=== PATIENT | female | born 1990 | race Caucasian/White ===

== ENCOUNTER 2018-04-30 14:14 | Emergency (ER) | payer OTHER, SELFPAY ==
[2018-04-30 14:18] VITALS: BP 144/95; PULSE 90; RESP 18; TEMP 36.6; O2SAT 100
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
[2018-04-30] MEDS: IBUPROFEN 400 MG TABLET 800 MG PO (14:51)
[2018-04-30] MEDS: TET,DIPH,PERTUSS(ACELL),VAC/PF 0.5 ML SYRINGE IM (14:53)
[2018-04-30 15:43] VITALS: BP 111/68; PULSE 65; RESP 12; O2SAT 100
== END 2018-04-30 15:54 | disposition home or self-care (01) ==
PROVIDERS: Emergency Provider Internal Medicine; PCP Family Medicine
DX: T24.202A Burn of second degree of unspecified site of left lower limb, except ankle and foot, initial encounter (principal); T24.101A Burn of first degree of unspecified site of right lower limb, except ankle and foot, initial encounter; X11.1XXA Contact with running hot water, initial encounter; Y99.0 Civilian activity done for income or pay
CPT/HCPCS: 90471; 99282; 99283; 90715

== ENCOUNTER → 2018-11-09 09:49 | Outpatient (CLI) | payer OTHER, MEDICAID, SELFPAY ==
--- NOTE | 2018-11-09 09:51 | DI.RAD.S_ITS ---
PROCEDURE: XR CERVICAL SPINE 2V OR 3V INDICATIONS: Cervical radiculopathy TECHNIQUE: 3 view(s) of the cervical spine were acquired. COMPARISON: None. FINDINGS: Bones: No fractures or dislocations to the C7 level. The lateral masses of C1 appear intact on the odontoid view. No suspicious bony lesions. Disc space is grossly preserved. Mild diffuse facet arthropathy Soft tissues: No prevertebral soft tissue swelling. IMPRESSION: Mild diffuse facet arthropathy Dictated by: Orlando Iqbal M.D. on 11/09/2018 at 12:47 Approved by: Orlando Iqbal M.D. on 11/09/2018 at 12:48
== END ==
PROVIDERS: PCP Registered Nurse; Visit Provider Registered Nurse
DX: M47.22 Other spondylosis with radiculopathy, cervical region (principal)
CPT/HCPCS: 72040

== ENCOUNTER → 2019-02-01 19:38 | Outpatient (CLI) | payer OTHER, MEDICAID, SELFPAY ==
[2019-02-01 20:25] LABS: Influenza A and B by PCR Rapid Negative (Negative)
== END ==
PROVIDERS: PCP Registered Nurse; Visit Provider Physician Assistant
DX: R68.89 Other general symptoms and signs (principal)
CPT/HCPCS: 87400

== ENCOUNTER → 2019-02-02 09:38 | Outpatient (CLI) | payer OTHER, MEDICAID, SELFPAY ==
[2019-02-02 10:02] LABS: Appearance Urine UA CLEAR; Bilirubin Urine UA NEGATIVE (NEGATIVE); Color Urine UA YELLOW; Glucose Urine UA NEGATIVE (Negative); Ketones Urine UA NEGATIVE (NEGATIVE); Leukocyte Esterase Urine UA NEGATIVE (NEGATIVE); Nitrite Urine UA NEGATIVE (Negative); Occult Blood Urine UA NEGATIVE (Negative); Protein Urine UA NEGATIVE (Negative); pH Urine UA 6.5 (4.5-8.0)
[2019-02-02 10:03] LABS: Add Manual Diff / Slide Review NO; Basophils Absolute Auto 0 /uL (0-100); Basophils Percent Auto 0.4 % (0-2); Eosinophils Absolute Auto 0 /uL (0-450); Eosinophils Percent Auto 0.2 % (2-4); Hematocrit 37.4 % (36-46); Hemoglobin 13.2 g/dL (12.0-16.0); Lymphocytes Absolute Auto 2000 /uL (1100-4500); Lymphocytes Percent Auto 21.3 % (25-40); Mean Corpuscular HGB Conc 35.2 % (30-36); Mean Corpuscular Hemoglobin 31.4 PG (26-34); Mean Corpuscular Volume 89.2 fL (80-100); Monocytes Absolute Auto 800 /uL (0-900); Monocytes Percent Auto 8.6 % (3-14); Neutrophils Absolute Auto 6500 /uL (1500-7000); Neutrophils Percent Auto 69.5 % (50-75); Platelet Count 265 X10^3/uL (150-400); Red Cell Distribution Width 11.9 % (11.6-14.8); White Blood Cell Count 9.3 X10^3/uL (4.5-11.0)
[2019-02-02 10:06] LABS: Pregnancy Test Urine Negative (Negative)
[2019-02-02 10:10] LABS: Monotest Negative (Negative)
[2019-02-02 10:11] LABS: Alanine Aminotransferase 17 IU/L (9-52); Albumin 4.6 g/dL (3.5-5.0); Albumin Globulin Ratio 1.4 (1.0-2.8); Alkaline Phosphatase 59 U/L (38-126); Aspartate Aminotransferase 21 IU/L (14-36); BUN Creatinine Ratio 14.3 (6-22); Bilirubin Total 0.5 mg/dL (0.2-1.3); Blood Urea Nitrogen 10 mg/dL (7-17); Calcium 9.4 mg/dL (8.4-10.2); Carbon Dioxide 26 mmol/L (22-32); Chloride 102 mmol/L (98-107); Estimated Glomerular Filt Rate > 60.0 mL/min (>60); Globulin 3.3 g/dL (1.7-4.1); Glucose 118 mg/dL (70-100); HEMOLYSIS < 15 (0-50); Potassium 3.9 mmol/L (3.4-5.1); Sodium 140 mmol/L (137-145); Total Protein 7.9 g/dL (6.3-8.2)
[2019-02-02 10:15] LABS: Bacteria Urine Few (2-10); Culture Indicated Urine Cult Not Indicated; Mucus Urine 1+ (Negative); RBC Urine 0-1/HPF (0-5/HPF); Squamous Epithelial Cell Urine 0-1 /HPF (0-5/HPF); WBC Urine 0-1/HPF (0-5/HPF)
== END ==
PROVIDERS: PCP Registered Nurse; Visit Provider Physician Assistant
DX: R68.89 Other general symptoms and signs (principal)
CPT/HCPCS: 36415; 80053; 81001; 81025; 85025; 86318

== ENCOUNTER → 2019-02-23 15:08 | Outpatient (CLI) | payer OTHER, MEDICAID, SELFPAY ==
[2019-02-23 16:18] LABS: Add Manual Diff / Slide Review NO; Basophils Absolute Auto 0 /uL (0-100); Basophils Percent Auto 0.3 % (0-2); Eosinophils Absolute Auto 0 /uL (0-450); Eosinophils Percent Auto 0.3 % (2-4); Hematocrit 34.5 % (36-46); Hemoglobin 11.9 g/dL (12.0-16.0); Lymphocytes Absolute Auto 3300 /uL (1100-4500); Lymphocytes Percent Auto 24.8 % (25-40); Mean Corpuscular HGB Conc 34.5 % (30-36); Mean Corpuscular Hemoglobin 30.7 PG (26-34); Mean Corpuscular Volume 89.1 fL (80-100); Monocytes Absolute Auto 700 /uL (0-900); Neutrophils Absolute Auto 9200 /uL (1500-7000); Neutrophils Percent Auto 69.6 % (50-75); Platelet Count 313 X10^3/uL (150-400); Red Blood Cell Count 3.87 X10^6/uL (4.0-5.2); Red Cell Distribution Width 12.6 % (11.6-14.8); White Blood Cell Count 13.2 X10^3/uL (4.5-11.0)
[2019-02-23 17:18] LABS: BUN Creatinine Ratio 15.7 (6-22); Blood Urea Nitrogen 11 mg/dL (7-17); Calcium 9.4 mg/dL (8.4-10.2); Carbon Dioxide 27 mmol/L (22-32); Chloride 97 mmol/L (98-107); Estimated Glomerular Filt Rate > 60.0 mL/min (>60); Glucose 80 mg/dL (70-100); HEMOLYSIS < 15 (0-50); Potassium 3.8 mmol/L (3.4-5.1); Sodium 134 mmol/L (137-145)
[2019-02-23 18:54] LABS: Bacteria Urine None Seen; RBC Urine None Seen (0-5/HPF); WBC Urine None Seen (0-5/HPF)
[2019-02-23 19:13] LABS: Bilirubin Urine UA NEGATIVE (NEGATIVE); Color Urine UA YELLOW; Glucose Urine UA NEGATIVE (Negative); Ketones Urine UA NEGATIVE (NEGATIVE); Leukocyte Esterase Urine UA NEGATIVE (NEGATIVE); Nitrite Urine UA NEGATIVE (Negative); Occult Blood Urine UA 2+ (Negative); Protein Urine UA NEGATIVE (Negative); Specific Gravity Urine UA <=1.005 (1.000-1.035); Urobilinogen Urine UA 0.2 E.U./dL (0.2)
[2019-02-23 19:17] LABS: Appearance Urine UA Slightly Cloudy
[2019-02-23 19:21] LABS: Squamous Epithelial Cell Urine 0-1 /HPF (0-5/HPF)
[2019-02-23 19:22] LABS: Culture Indicated Urine Cult Not Indicated
== END ==
PROVIDERS: PCP Registered Nurse; Visit Provider Registered Nurse
DX: R10.30 Lower abdominal pain, unspecified (principal); R31.9 Hematuria, unspecified; N92.3 Ovulation bleeding
CPT/HCPCS: 36415; 80048; 81001; 85025

== ENCOUNTER → 2019-02-23 16:10 | Outpatient (CLI) | payer OTHER, MEDICAID, SELFPAY ==
--- NOTE | 2019-02-23 | DI.CT.S_ITS ---
PROCEDURE: CT ABDOMEN PELVIS W CON INDICATIONS: LEFT LOWER QUADRANT PAIN, DIVERTICULITIS TECHNIQUE: After the administration of oral and intravenous contrast, 5 mm thick sections acquired from the diaphragms to the symphysis. 5 mm thick coronal and sagittal reformats were performed. For radiation dose reduction, the following was used: automated exposure control, adjustment of mA and/or kV according to patient size. COMPARISON: None. FINDINGS: Image quality: Excellent. ABDOMEN: Lung bases: There is a subpleural nodule within the left posterolateral lung base measuring 5 mm. Heart size is normal. Solid organs: Liver is normal in size and enhancement. Gallbladder is within normal limits. Biliary system is non-dilated. Pancreas enhances normally. Spleen is normal in size and enhancement. No adrenal nodules. Kidneys are normal in size and enhancement, without hydronephrosis. Peritoneum and bowel: Stomach, small bowel, and colon loops are normal in caliber and wall thickness. No free fluid or air. Normal appendix. Nodes and vessels: No retroperitoneal or mesenteric adenopathy. Aorta and inferior vena cava are normal in caliber. Miscellaneous: No ventral hernias. PELVIS: Genitourinary: Bladder wall thickness is normal. Miscellaneous: No inguinal hernias or adenopathy. Bones: No suspicious bony lesions. No vertebral body compression fractures. IMPRESSION: 1. No explanation for left lower quadrant pain. No evidence of diverticulitis. 2. Normal appendix. 3. Left lung base nodule. Followup is recommended as below. Fleischner Society criteria for SOLID lung nodule followup. Nodule size (mm)Low-risk patientHigh-risk patient?4No follow-up neededFollow-up at 12 mo; if no change, no further follow-up>3-2Sbfpeo-dw CT at 12 mo; if no change, no further follow-up needed.Initial follow-up CT at 6-12 mo, then 18-24 mo if no change. >6-8Initial follow-up CT at 6-12 mo, then 18-24 mo if no change. Initial follow-up CT at 3-6 mo, then 9-12 mo and 24 mo if no change. >8Follow-up CT at 3, 9, 24 mo. Or PET and/or biopsy.Same as for low-risk pts. Dictated by: Marisa Rae M.D. on 02/23/2019 at 19:11 Approved by: Marisa Rae M.D. on 02/23/2019 at 19:13
== END ==
PROVIDERS: PCP Registered Nurse; Visit Provider Registered Nurse
DX: R10.32 Left lower quadrant pain (principal); K57.92 Diverticulitis of intestine, part unspecified, without perforation or abscess without bleeding; R31.9 Hematuria, unspecified; N92.3 Ovulation bleeding
CPT/HCPCS: 36415; 74177; 80048; 81001; 85025; Q9967

== ENCOUNTER → 2019-02-23 16:26 | Outpatient (CLI) | payer OTHER, MEDICAID, SELFPAY | PROVIDERS: PCP Registered Nurse; Visit Provider Registered Nurse | DX: R10.32 Left lower quadrant pain (principal) ==

== ENCOUNTER → 2019-03-15 09:32 | Outpatient (CLI) | payer OTHER, MEDICAID, SELFPAY ==
[2019-03-15 10:46] LABS: Add Manual Diff / Slide Review NO; Basophils Absolute Auto 0 /uL (0-100); Basophils Percent Auto 0.4 % (0-2); Eosinophils Absolute Auto 100 /uL (0-450); Hematocrit 36.1 % (36-46); Hemoglobin 12.4 g/dL (12.0-16.0); Lymphocytes Absolute Auto 2100 /uL (1100-4500); Lymphocytes Percent Auto 32.2 % (25-40); Mean Corpuscular HGB Conc 34.2 % (30-36); Mean Corpuscular Hemoglobin 30.7 PG (26-34); Mean Corpuscular Volume 89.6 fL (80-100); Monocytes Absolute Auto 500 /uL (0-900); Monocytes Percent Auto 7.7 % (3-14); Neutrophils Absolute Auto 3700 /uL (1500-7000); Neutrophils Percent Auto 57.7 % (50-75); Platelet Count 304 X10^3/uL (150-400); Red Blood Cell Count 4.03 X10^6/uL (4.0-5.2); Red Cell Distribution Width 12.5 % (11.6-14.8); White Blood Cell Count 6.4 X10^3/uL (4.5-11.0)
== END ==
PROVIDERS: PCP Registered Nurse; Visit Provider Registered Nurse
DX: N12 Tubulo-interstitial nephritis, not specified as acute or chronic (principal)
CPT/HCPCS: 36415; 85025

== ENCOUNTER 2019-09-05 03:06 | Emergency (ER) | payer OTHER, MEDICAID, SELFPAY ==
[2019-09-05 03:13] VITALS: BP 120/76; PULSE 102; RESP 16; TEMP 36.4; O2SAT 96; BMI 24.9
--- NOTE | 2019-09-05 03:17 | DI.RAD.S_ITS ---
PROCEDURE: XR ANKLE LT MIN 3V INDICATIONS: Fall with injury possible fracture TECHNIQUE: 3 views of the ankle were acquired. COMPARISON: None. FINDINGS: Bones: No fractures or dislocations. Ankle mortise is normally aligned. No suspicious bony lesions. Soft tissues: No tibiotalar joint effusion. Achilles tendon appears normal. IMPRESSION: No acute radiographic findings. If pain persists, followup imaging in 5-7 days is recommended to exclude occult fracture. Dictated by: Alejandra Forbes M.D. on 09/05/2019 at 7:12 Approved by: Alejandra Forbes M.D. on 09/05/2019 at 7:13
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
[2019-09-05 04:44] VITALS: BP 107/70
== END 2019-09-05 04:45 | disposition home or self-care (01) ==
PROVIDERS: Emergency Provider Emergency Medicine; PCP Registered Nurse
DX: S93.402A Sprain of unspecified ligament of left ankle, initial encounter (principal); X50.1XXA Overexertion from prolonged static or awkward postures, initial encounter
CPT/HCPCS: 73610; 99283; 99284

== ENCOUNTER → 2019-09-16 15:08 | Outpatient (CLI) | payer OTHER, MEDICAID, SELFPAY ==
[2019-09-16 15:28] LABS: Bacteria Urine None Seen; RBC Urine None Seen (0-5/HPF)
[2019-09-16 16:24] LABS: Appearance Urine UA CLEAR; Bilirubin Urine UA NEGATIVE (NEGATIVE); Color Urine UA YELLOW; Glucose Urine UA NEGATIVE (Negative); Ketones Urine UA NEGATIVE (NEGATIVE); Leukocyte Esterase Urine UA 1+ (NEGATIVE); Nitrite Urine UA NEGATIVE (Negative); Occult Blood Urine UA NEGATIVE (Negative); Protein Urine UA NEGATIVE (Negative); Specific Gravity Urine UA <=1.005 (1.000-1.035); Urobilinogen Urine UA 0.2 E.U./dL (0.2)
[2019-09-16 16:50] LABS: Culture Indicated Urine Specimen Cultured; WBC Urine 1-5/HPF (0-5/HPF)
[2019-09-16 17:05] LABS: Pregnancy Test Urine Negative (Negative)
== END ==
PROVIDERS: PCP Registered Nurse; Visit Provider Nurse Practitioner
DX: R30.0 Dysuria (principal); Z34.90 Encounter for supervision of normal pregnancy, unspecified, unspecified trimester
CPT/HCPCS: 81001; 81025; 87086

== ENCOUNTER 2019-11-18 11:15 | Outpatient (RCR) | payer OTHER, MEDICAID, SELFPAY ==
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
--- NOTE | 2019-10-21 09:45 | PT.OPPOC ---
Physical, Occupational & Speech Therapy At [facility] Current Diagnoses Pain in left ankle and joints of left foot (10/21/19) Muscle weakness (generalized) (10/21/19) Unspecified injury of left ankle, initial encounter (10/21/19) Visit Care Team Role Provider Type LISSA Santiago Primary Care Provider Advanced Sound Tester Specialty: Medical Address: [address] [place] [address], [facility] Email: [email or web address] LISSA Sandra Attending Provider Advanced Sound Tester Referring Provider Specialty: Family Practice Address: [address] [place] [address], [id number] Email: [email or web address] Plan Of Care PT-OP-T Assessment and Plan Start: 10/21/19 17:48 Freq: Status: Active Protocol: Document 10/21/19 09:45 DLM (Rec: 10/25/19 20:28 DLM [id number]) Physical Therapy Assessment Rehab Potential Rehabilitation Potential Excellent Evaluation Complexity Number of Personal Factors/Comorbidities 1-2 Number of Body Systems Impaired 3 Clinical Presentation at Evaluation Evolving Impairments Impairments Balance,Functional Activities, Gait,Pain,ROM,Soft Tissue Mobility,Strength Goals Four Impairment Functional limitations left ankle Short Term Goal (STG) demonstrate good single limb stability on left STG Duration 2 weeks Nurse Informatics Educator Goal (LTG) demonstrate normal gait and ability to participate in normal Yoga routine LTG Duration 4 weeks Three Impairment Decreased Strength Short Term Goal (STG) Left ankle strength 4+/5 STG Duration 2 weeks Nurse Informatics Educator Goal (LTG) Left LE strength 5/5 LTG Duration 4 weeks Two Impairment Limited left ankle ROM Short Term Goal (STG) Left ankle dorsiflexion AROM to neutral STG Duration 2 weeks Penitentiary Goal (LTG) left ankle DF to 3 degrees dorsiflexed LTG Duration 4 weeks One Impairment Pain left ankle Short Term Goal (STG) resolve pain with active ankle motions STG Duration 2 weeks Nurse Informatics Educator Goal (LTG) resolve pain with normal functional use left ankle LTG Duration 4 weeks Assessment Summary Assessment Christal presents to therapy after left ankle injury. Clinical exam is positive for strain/sprain. Her ankle has improved with rest and normal walking but has not returned to full strength and ROM. She has mild edema around lateral malleolus at this time. She could benefit from physical therapy to address the deficits identified on evaluation. Physical Therapy Plan Frequency and Duration Frequency of Treatment 1x/Week Duration of Treatment 4 weeks Plan of Care Start Date 10/21/19 Plan of Care End Date 12/14/19 Therapeutic Interventions Therapeutic Interventions Balance Training,Gait Training ,Home Exercise Program,Manual Therapy,Patient/Caregiver Education,Self-Care/Home Management,Soft Tissue Mobilization,Taping, Therapeutic Activities, Therapeutic Exercises Modalities Cold Pack/Ice Massage, Ultrasound Next Visit Focus/Plan Next Note Type Treatment Note Next Visit Plan Left LE strengthening and closed chain stabalization, calf stretch to increase DF ROM Plan of Care Dates Plan of Care Start Date 10/21/19 Plan of Care End Date 12/14/19 Electronically Signed by: Nayla Barton, PT 10/25/192037 Please Sign and Return: I have reviewed this Plan of Care and certify that the skilled therapy services above are required to meet the patient?s needs. Physician Signature Date Printed Name and Credentials
--- NOTE | 2019-10-28 09:45 | PT.OTN ---
Current Diagnoses Pain in left ankle and joints of left foot (10/28/19) Muscle weakness (generalized) (10/28/19) Unspecified injury of left ankle, initial encounter (10/28/19) Physical Therapy Treatment Note PT-OP-A Visit Information Start: 10/21/19 17:48 Freq: Status: Active Protocol: Document 10/28/19 09:00 KS (Rec: 10/28/19 10:11 KS [email or web address]) Out-Patient Physical Therapy Visit Information Visit Information Visit Type Treatment Note Visit Start Time 09:00 Visit Stop Time 09:45 Total Visit Minutes 45 Visit Number 2 Number of WARRANTY COORDINATOR Visits 1 PT-OP-B Current Condition Start: 10/21/19 17:48 Freq: Status: Active Protocol: Document 10/21/19 09:45 DLM (Rec: 10/25/19 20:28 DLM [id number]) Current Condition History of Current Condition Onset Date 09/05/19 Current Complaints Left ankle pain History of Current Condition She injured her ankle on 09/05 while at work. She has immediate severe pain in her ankle and could not walk on it . She was seen in ED where she was negative for fracture. Her ankle has gradually gotten better. She continues to have pain with certain movements especially quick turns and trying to kneel on ground. She feels her ankle is 75% better . Prior Treatments and Tests rest of ankle, x-rays Treatment Goals Patient/Caregiver Goals resolve the pain in her ankle with normal use Prior Functional Status Baseline Function- ADL's Independent Baseline Function- Mobility Independent Baseline Function- Gait Independent Baseline Function- Work/School Working Baseline Function- Recreation/Hobbies Yoga, Walking Current Functional Impairments (Reported) Functional Limitations- ADL's Independent Functional Limitations- Mobility/Gait she feels she can walk normal on even surfaces, quick turns and kneeling down are painful Functional Limitations- Work/School she is no longer working, she decided to take care of her Mother who was diagnosed with cancer and starting chemo treatments Functional Limitations- Recreation/ pain trying to do Yoga Hobbies Personal Factors Other Personal Factors That May Effect hx of back injury, caring for Therapy/Recovery her Mother who is starting Chemo treatments in the infusion center PT-OP-C Subjective Start: 10/21/19 17:48 Freq: Status: Active Protocol: Document 10/28/19 09:00 KS (Rec: 10/28/19 10:11 KS [id number]) OP-PT Subjective Patient Comments Patient Comments Pt reports slight pain in ankle following completion of HEP and walking downhill especially. Patient Reported Progress Improving PT-OP-D Balance Start: 10/21/19 17:48 Freq: Status: Active Protocol: Document 10/21/19 09:45 DLM (Rec: 10/25/19 20:30 DLM [id number]) Balance Tests Single Limb Standing Single Limb- Right WNL Single Limb- Left increased sway Tandem Tandem Standing increased sway with left LE in the back position Other Other Balance Tests Performed Decreased balance with standing heel walking. Functional weakness seen with standing heel raises. PT-OP-G Mobility & Gait Start: 10/21/19 17:48 Freq: Status: Active Protocol: Document 10/21/19 09:45 DLM (Rec: 10/25/19 20:28 DLM [id number]) OP Mobility Evaluation Bed Mobility Supine to and from Sit Independent Transfers Sit to Stand Independent OP Gait Assessment Gait Gait Assistance Required: Independent Assistive Devices Assistive Device None Comments Gait Comments mild changes in her gait, decreased push off noted on left and mild decreased stance time PT-OP-J Posture/Palpation/Skin Start: 10/21/19 17:48 Freq: Status: Active Protocol: Document 10/21/19 09:45 DLM (Rec: 10/25/19 20:28 DLM [id number]) Posture Evaluation Position Standing Knee Posture (L) Genu Varus,(R) Genu Varus Ankle/Foot Posture (L) Pronated,(R) Pronated Palpation Assessment Location One Palpation Location left lateral ankle Palpation Findings Edema,Tenderness Palpation Details mild scar tissue noted Skin Assessment Edema Assessment Left Ankle Edema Type Pitting Edema Degree 1+ Comments mild pocketing around lateral malleolus Circumference Measurement Ankle Location Left Measurement (Centimeters) 24 Comments Right 23.3 cm PT-OP-K Range of Motion Start: 10/21/19 17:48 Freq: Status: Active Protocol: Document 10/21/19 09:45 DLM (Rec: 10/25/19 20:28 DLM [id number]) Ankle and Foot Goniometric Range of Motion Ankle and Foot Right Active Ankle/Foot ROM WFL Yes Testing Position Supine Dorsiflexion with Knee Extended 3 Plantarflexion 75 Inversion 40 Eversion 19 Left Active Testing Position Supine Plantarflexion 65 Inversion 21 Eversion 22 Ankle and Foot ROM Limitations ROM Limitations Pain Comments left dorsiflexion is lacking 15 degrees to neutral ( plantarflexed 15 degrees), pain with left ankle PF,IV and EV PT-OP-M Strength Start: 10/21/19 17:48 Freq: Status: Active Protocol: Document 10/21/19 09:45 DLM (Rec: 10/25/19 20:28 DLM [id number]) Hip Strength Hip Manual Muscle Testing Left Flexion (L2) 4- Good- Extension (S1) 4+ Good+ Abduction 4+ Good+ Adduction 5 Normal Right Flexion (L2) 5 Normal Extension (S1) 5 Normal Abduction 5 Normal Adduction 5 Normal Knee Strength Knee Manual Muscle Testing Right Flexion (S2) 5 Normal Extension (L3) 5 Normal Left Flexion (S2) 5 Normal Extension (L3) 4+ Good+ Ankle/Foot Strength Ankle and Foot Manual Muscle Testing Left Dorsiflexion (L4) 4+ Good+ Plantarflexion (S1) 4 Good Inversion 4- Good- Eversion (S1) 4 Good Right Dorsiflexion (L4) 5 Normal Plantarflexion (S1) 5 Normal Inversion 5 Normal Eversion (S1) 5 Normal PT-OP-Q Treatments Start: 10/21/19 17:48 Freq: Status: Active Protocol: Document 10/28/19 09:00 KS (Rec: 10/28/19 10:11 KS [email or web address]) Cardio Equipment Treadmill Duration (Minutes) 5 Speed 2.4 Therapeutic Exercises Prone Exercises PF stretch Prone Exercise Name hands and knees, rock back to stretch ankle into PF Side left Resistance passive stretch Reps/Minutes 3 reps Comments cuing to keep ankle in neutral Sitting Exercises BAPS board Sitting Exercise Name BAPS board Side left Reps/Minutes 4 min Comments clockwise, counter clockwise, LRFB Alphabet with Ankle Side left Resistance active Reps/Minutes 1 set Comments Increase in pain towards end of set 4 Way Ankle EX Sitting Exercise Name ankle DF/PF/IV/EV Side left Resistance L1 exercise band Reps/Minutes 10 reps each Standing Exercises Calf stretch Standing Exercise Name calf stretch Side bilateral Equipment Used Nasir Reps/Minutes 2x30 sec SLS Standing Exercise Name SLS, tandem Side bilateral Equipment Used foam Reps/Minutes 3x30 sec Comments // bars, cues to shift weight through center of foot Calf raises Standing Exercise Name Calf raise Side bilateral Reps/Minutes 3x10 Comments last set w/ lowering on L ankle only Manual Therapy Treatment Other Other Manual Treatments Passive stretches L ankle PT-OP-T Assessment and Plan Start: 10/21/19 17:48 Freq: Status: Active Protocol: Document 10/28/19 09:00 KS (Rec: 10/28/19 10:11 KS [email or web address]) Physical Therapy Assessment Rehab Potential Rehabilitation Potential Excellent Evaluation Complexity Number of Personal Factors/Comorbidities 1-2 Number of Body Systems Impaired 3 Clinical Presentation at Evaluation Evolving Impairments Impairments Balance,Functional Activities, Gait,Pain,ROM,Soft Tissue Mobility,Strength Goals Four Impairment Functional limitations left ankle Short Term Goal (STG) demonstrate good single limb stability on left STG Duration 2 weeks Custodial Goal (LTG) demonstrate normal gait and ability to participate in normal Yoga routine LTG Duration 4 weeks Three Impairment Decreased Strength Short Term Goal (STG) Left ankle strength 4+/5 STG Duration 2 weeks Custodial Goal (LTG) Left LE strength 5/5 LTG Duration 4 weeks Two Impairment Limited left ankle ROM Short Term Goal (STG) Left ankle dorsiflexion AROM to neutral STG Duration 2 weeks Custodial Goal (LTG) left ankle DF to 3 degrees dorsiflexed LTG Duration 4 weeks One Impairment Pain left ankle Short Term Goal (STG) resolve pain with active ankle motions STG Duration 2 weeks Cover Assembler Goal (LTG) resolve pain with normal functional use left ankle LTG Duration 4 weeks Assessment Summary Assessment Pt reports progress made and overall increased function and decreased pain. Pt states that she has increase in pain after performing HEP and walking downhill. While walking on treadmill, pt has ER and limited DF and decreased stance on L LE, but denied any increase in pain. Pt tolerated ankle strengthening and ROM exercises, but does note discomfort secondary to SLS on foam pad for strengthening of ankle stabilizers. Performed passive stetching on L ankle, pt reported tenderness below lateral malleolus w/ inversion and along achilles tendon w/ dorsiflexion.
--- NOTE | 2019-11-04 09:45 | PT.OTN ---
Current Diagnoses Pain in left ankle and joints of left foot (11/04/19) Muscle weakness (generalized) (11/04/19) Unspecified injury of left ankle, initial encounter (11/04/19) Physical Therapy Treatment Note PT-OP-A Visit Information Start: 10/21/19 17:48 Freq: Status: Active Protocol: Document 11/04/19 08:55 KS (Rec: 11/04/19 12:34 KS [id number]) Out-Patient Physical Therapy Visit Information Visit Information Visit Type Treatment Note Visit Start Time 08:55 Visit Stop Time 09:45 Total Visit Minutes 50 Visit Number 3 Number of SUPERVISING PRODUCER Visits 2 PT-OP-B Current Condition Start: 10/21/19 17:48 Freq: Status: Active Protocol: Document 10/21/19 09:45 DLM (Rec: 10/25/19 20:28 DLM [id number]) Current Condition History of Current Condition Onset Date 09/05/19 Current Complaints Left ankle pain History of Current Condition She injured her ankle on 09/05 while at work. She has immediate severe pain in her ankle and could not walk on it . She was seen in ED where she was negative for fracture. Her ankle has gradually gotten better. She continues to have pain with certain movements especially quick turns and trying to kneel on ground. She feels her ankle is 75% better . Prior Treatments and Tests rest of ankle, x-rays Treatment Goals Patient/Caregiver Goals resolve the pain in her ankle with normal use Prior Functional Status Baseline Function- ADL's Independent Baseline Function- Mobility Independent Baseline Function- Gait Independent Baseline Function- Work/School Working Baseline Function- Recreation/Hobbies Yoga, Walking Current Functional Impairments (Reported) Functional Limitations- ADL's Independent Functional Limitations- Mobility/Gait she feels she can walk normal on even surfaces, quick turns and kneeling down are painful Functional Limitations- Work/School she is no longer working, she decided to take care of her Mother who was diagnosed with cancer and starting chemo treatments Functional Limitations- Recreation/ pain trying to do Yoga Hobbies Personal Factors Other Personal Factors That May Effect hx of back injury, caring for Therapy/Recovery her Mother who is starting Chemo treatments in the infusion center PT-OP-C Subjective Start: 10/21/19 17:48 Freq: Status: Active Protocol: Document 11/04/19 08:55 KS (Rec: 11/04/19 12:34 KS [id number]) OP-PT Subjective Patient Comments Patient Comments Pt reports that she had slight discomfort after last treatment, but feels like she is gaining strength and mobility overall. Pt offers that she also was able to go on a hike last weekend. Suggested pt wear shoes w/ ankle and arch support rather than slip ons. Patient Reported Progress Improving PT-OP-D Balance Start: 10/21/19 17:48 Freq: Status: Active Protocol: Document 10/21/19 09:45 DLM (Rec: 10/25/19 20:30 DLM [id number]) Balance Tests Single Limb Standing Single Limb- Right WNL Single Limb- Left increased sway Tandem Tandem Standing increased sway with left LE in the back position Other Other Balance Tests Performed Decreased balance with standing heel walking. Functional weakness seen with standing heel raises. PT-OP-G Mobility & Gait Start: 10/21/19 17:48 Freq: Status: Active Protocol: Document 10/21/19 09:45 DLM (Rec: 10/25/19 20:28 DLM [id number]) OP Mobility Evaluation Bed Mobility Supine to and from Sit Independent Transfers Sit to Stand Independent OP Gait Assessment Gait Gait Assistance Required: Independent Assistive Devices Assistive Device None Comments Gait Comments mild changes in her gait, decreased push off noted on left and mild decreased stance time PT-OP-J Posture/Palpation/Skin Start: 10/21/19 17:48 Freq: Status: Active Protocol: Document 10/21/19 09:45 DLM (Rec: 10/25/19 20:28 DLM [id number]) Posture Evaluation Position Standing Knee Posture (L) Genu Varus,(R) Genu Varus Ankle/Foot Posture (L) Pronated,(R) Pronated Palpation Assessment Location One Palpation Location left lateral ankle Palpation Findings Edema,Tenderness Palpation Details mild scar tissue noted Skin Assessment Edema Assessment Left Ankle Edema Type Pitting Edema Degree 1+ Comments mild pocketing around lateral malleolus Circumference Measurement Ankle Location Left Measurement (Centimeters) 24 Comments Right 23.3 cm PT-OP-K Range of Motion Start: 10/21/19 17:48 Freq: Status: Active Protocol: Document 10/21/19 09:45 DLM (Rec: 10/25/19 20:28 DLM [id number]) Ankle and Foot Goniometric Range of Motion Ankle and Foot Right Active Ankle/Foot ROM WFL Yes Testing Position Supine Dorsiflexion with Knee Extended 3 Plantarflexion 75 Inversion 40 Eversion 19 Left Active Testing Position Supine Plantarflexion 65 Inversion 21 Eversion 22 Ankle and Foot ROM Limitations ROM Limitations Pain Comments left dorsiflexion is lacking 15 degrees to neutral ( plantarflexed 15 degrees), pain with left ankle PF,IV and EV PT-OP-M Strength Start: 10/21/19 17:48 Freq: Status: Active Protocol: Document 10/21/19 09:45 DLM (Rec: 10/25/19 20:28 DLM [id number]) Hip Strength Hip Manual Muscle Testing Left Flexion (L2) 4- Good- Extension (S1) 4+ Good+ Abduction 4+ Good+ Adduction 5 Normal Right Flexion (L2) 5 Normal Extension (S1) 5 Normal Abduction 5 Normal Adduction 5 Normal Knee Strength Knee Manual Muscle Testing Right Flexion (S2) 5 Normal Extension (L3) 5 Normal Left Flexion (S2) 5 Normal Extension (L3) 4+ Good+ Ankle/Foot Strength Ankle and Foot Manual Muscle Testing Left Dorsiflexion (L4) 4+ Good+ Plantarflexion (S1) 4 Good Inversion 4- Good- Eversion (S1) 4 Good Right Dorsiflexion (L4) 5 Normal Plantarflexion (S1) 5 Normal Inversion 5 Normal Eversion (S1) 5 Normal PT-OP-Q Treatments Start: 10/21/19 17:48 Freq: Status: Active Protocol: Document 11/04/19 08:55 KS (Rec: 11/04/19 12:34 KS [id number]) Cardio Equipment Treadmill Duration (Minutes) 6 Speed 2.0 Therapeutic Exercises Prone Exercises PF stretch Prone Exercise Name hands and knees, rock back to stretch ankle into PF Side left Resistance passive stretch Reps/Minutes 3 reps Comments cuing to keep ankle in neutral Sitting Exercises BAPS board Sitting Exercise Name BAPS board Side left Reps/Minutes 4 min Comments clockwise, counter clockwise, LRFB Alphabet with Ankle Side left Resistance active Reps/Minutes [address] Ankle EX Sitting Exercise Name ankle DF/PF/IV/EV Side left Resistance L1 exercise band Reps/Minutes 10 reps each Standing Exercises Calf stretch Standing Exercise Name calf stretch Side bilateral Equipment Used Nasir Reps/Minutes 2x30 sec SLS Standing Exercise Name SLS Side bilateral Reps/Minutes 3x30 sec Comments cues to shift weight through center of foot Calf raises Standing Exercise Name Calf raise Side bilateral Reps/Minutes 3x10 Comments increased pn during last set Manual Therapy Treatment Soft Tissue Mobilization L ankle Body Location L ankle Mobilization Type Rolling,Strumming Intensity/Depth Superficial Body Position Supine Comments Pt has increased tenderness L anterior lateral malleolus PT-OP-T Assessment and Plan Start: 10/21/19 17:48 Freq: Status: Active Protocol: Document 11/04/19 08:55 KS (Rec: 11/04/19 12:34 KS [id number]) Physical Therapy Assessment Rehab Potential Rehabilitation Potential Excellent Evaluation Complexity Number of Personal Factors/Comorbidities 1-2 Number of Body Systems Impaired 3 Clinical Presentation at Evaluation Evolving Impairments Impairments Balance,Functional Activities, Gait,Pain,ROM,Soft Tissue Mobility,Strength Goals Four Impairment Functional limitations left ankle Short Term Goal (STG) demonstrate good single limb stability on left STG Duration 2 weeks Senior Living Goal (LTG) demonstrate normal gait and ability to participate in normal Yoga routine LTG Duration 4 weeks Three Impairment Decreased Strength Short Term Goal (STG) Left ankle strength 4+/5 STG Duration 2 weeks Fuel Quality Tech Goal (LTG) Left LE strength 5/5 LTG Duration 4 weeks Two Impairment Limited left ankle ROM Short Term Goal (STG) Left ankle dorsiflexion AROM to neutral STG Duration 2 weeks Senior Living Goal (LTG) left ankle DF to 3 degrees dorsiflexed LTG Duration 4 weeks One Impairment Pain left ankle Short Term Goal (STG) resolve pain with active ankle motions STG Duration 2 weeks Senior Living Goal (LTG) resolve pain with normal functional use left ankle LTG Duration 4 weeks Assessment Summary Assessment Pt reported slight soreness after last treatment, but also states that she went hiking on Friday and Friday which was somewhat aggravating. Encouraged pt to wear shoes w/ ankle and arch support when walking longer distances or hiking rather than slip on shoes that she reports wearing . Pt able to tolerate exercises today, but verbalized increase in discomfort w/ PF and inversion . Pt reports minimal compliance w/ HEP. Pt had tenderness anterior of L lateral malleolus during STM. Pt will benefit from continued ankle strengthening and stretching to increase stabilization and ROM. Physical Therapy Plan Frequency and Duration Frequency of Treatment 1x/Week Duration of Treatment 4 weeks Plan of Care Start Date 10/21/19 Plan of Care End Date 12/14/19 Therapeutic Interventions Therapeutic Interventions Balance Training,Gait Training ,Home Exercise Program,Manual Therapy,Patient/Caregiver Education,Self-Care/Home Management,Soft Tissue Mobilization,Taping, Therapeutic Activities, Therapeutic Exercises Modalities Cold Pack/Ice Massage, Ultrasound Next Visit Focus/Plan Next Note Type Treatment Note Next Visit Plan Left LE strengthening and closed chain stabalization, calf stretch to increase DF ROM, balance/ankle stability
--- NOTE | 2019-11-11 13:45 | PT.OTN ---
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 She has immediate severe pain in her ankle and could not walk on it . She was seen in ED where she was negative for fracture. Her ankle has gradually gotten better. She continues to have pain with certain movements especially quick turns and trying to kneel on ground. She feels her ankle is 75% better . Prior Treatments and Tests rest of ankle, x-rays Treatment Goals Patient/Caregiver Goals resolve the pain in her ankle with normal use Prior Functional Status Baseline Function- ADL's Independent Baseline Function- Mobility Independent Baseline Function- Gait Independent Baseline Function- Work/School Working Baseline Function- Recreation/Hobbies Yoga, Walking Current Functional Impairments (Reported) Functional Limitations- ADL's Independent Functional Limitations- Mobility/Gait she feels she can walk normal on even surfaces, quick turns and kneeling down are painful Functional Limitations- Work/School she is no longer working, she decided to take care of her Mother who was diagnosed with cancer and starting chemo treatments Functional Limitations- Recreation/ pain trying to do Yoga Hobbies Personal Factors Other Personal Factors That May Effect hx of back injury, caring for Therapy/Recovery her Mother who is starting Chemo treatments in the infusion center PT-OP-C Subjective Start: 10/21/19 17:48 Freq: Status: Active Protocol: Document 11/11/19 13:01 KS (Rec: 11/11/19 13:46 KS [id number]) OP-PT Subjective Patient Comments Patient Comments Pt states that she is feeling better today, expereinced mild soreness after last treatment that subsided within a coupls of hours. Notes that she is having less pain walking downhill as compared to before . Patient Reported Progress Improving PT-OP-D Balance Start: 10/21/19 17:48 Freq: Status: Active Protocol: Document 10/21/19 09:45 DLM (Rec: 10/25/19 20:30 DLM [id number]) Balance Tests Single Limb Standing Single Limb- Right WNL Single Limb- Left increased sway Tandem Tandem Standing increased sway with left LE in the back position Other Other Balance Tests Performed Decreased balance with standing heel walking. Functional weakness seen with standing heel raises. PT-OP-G Mobility & Gait Start: 10/21/19 17:48 Freq: Status: Active Protocol: Document 10/21/19 09:45 DLM (Rec: 10/25/19 20:28 DLM [id number]) OP Mobility Evaluation Bed Mobility Supine to and from Sit Independent Transfers Sit to Stand Independent OP Gait Assessment Gait Gait Assistance Required: Independent Assistive Devices Assistive Device None Comments Gait Comments mild changes in her gait, decreased push off noted on left and mild decreased stance time PT-OP-J Posture/Palpation/Skin Start: 10/21/19 17:48 Freq: Status: Active Protocol: Document 10/21/19 09:45 DLM (Rec: 10/25/19 20:28 DLM [id number]) Posture Evaluation Position Standing Knee Posture (L) Genu Varus,(R) Genu Varus Ankle/Foot Posture (L) Pronated,(R) Pronated Palpation Assessment Location One Palpation Location left lateral ankle Palpation Findings Edema,Tenderness Palpation Details mild scar tissue noted Skin Assessment Edema Assessment Left Ankle Edema Type Pitting Edema Degree 1+ Comments mild pocketing around lateral malleolus Circumference Measurement Ankle Location Left Measurement (Centimeters) 24 Comments Right 23.3 cm PT-OP-K Range of Motion Start: 10/21/19 17:48 Freq: Status: Active Protocol: Document 10/21/19 09:45 DLM (Rec: 10/25/19 20:28 DLM [id number]) Ankle and Foot Goniometric Range of Motion Ankle and Foot Right Active Ankle/Foot ROM WFL Yes Testing Position Supine Dorsiflexion with Knee Extended 3 Plantarflexion 75 Inversion 40 Eversion 19 Left Active Testing Position Supine Plantarflexion 65 Inversion 21 Eversion 22 Ankle and Foot ROM Limitations ROM Limitations Pain Comments left dorsiflexion is lacking 15 degrees to neutral ( plantarflexed 15 degrees), pain with left ankle PF,IV and EV PT-OP-M Strength Start: 10/21/19 17:48 Freq: Status: Active Protocol: Document 10/21/19 09:45 DLM (Rec: 10/25/19 20:28 DLM [id number]) Hip Strength Hip Manual Muscle Testing Left Flexion (L2) 4- Good- Extension (S1) 4+ Good+ Abduction 4+ Good+ Adduction 5 Normal Right Flexion (L2) 5 Normal Extension (S1) 5 Normal Abduction 5 Normal Adduction 5 Normal Knee Strength Knee Manual Muscle Testing Right Flexion (S2) 5 Normal Extension (L3) 5 Normal Left Flexion (S2) 5 Normal Extension (L3) 4+ Good+ Ankle/Foot Strength Ankle and Foot Manual Muscle Testing Left Dorsiflexion (L4) 4+ Good+ Plantarflexion (S1) 4 Good Inversion 4- Good- Eversion (S1) 4 Good Right Dorsiflexion (L4) 5 Normal Plantarflexion (S1) 5 Normal Inversion 5 Normal Eversion (S1) 5 Normal PT-OP-Q Treatments Start: 10/21/19 17:48 Freq: Status: Active Protocol: Document 11/11/19 13:01 KS (Rec: 11/11/19 13:46 KS [id number]) Cardio Equipment Treadmill Duration (Minutes) 7 Speed 2.8 Incline 1.0 Therapeutic Exercises Prone Exercises PF stretch Prone Exercise Name hands and knees, rock back to stretch ankle into PF Side left Resistance passive stretch Reps/Minutes 3 reps Comments cuing to keep ankle in neutral Sitting Exercises BAPS board Sitting Exercise Name BAPS board Side left Reps/Minutes 4 min Comments clockwise, counter clockwise, LRFB Alphabet with Ankle Side left Resistance active Reps/Minutes 2x [address] Way Ankle EX Sitting Exercise Name ankle DF/PF/IV/EV Side left Resistance L1 exercise band Reps/Minutes 10 reps each Standing Exercises Squats Standing Exercise Name Squats Reps/Minutes 2x10 Calf stretch Standing Exercise Name calf stretch Side bilateral Equipment Used Nasir Reps/Minutes 2x30 sec SLS Standing Exercise Name SLS Side bilateral Equipment Used foam Reps/Minutes 3x30 sec Comments cues to shift weight through center of foot Calf raises Standing Exercise Name Calf raise Side bilateral Reps/Minutes 3x10 Comments increased pn during last set Manual Therapy Treatment Soft Tissue Mobilization L ankle Body Location L ankle Mobilization Type Rolling,Strumming Intensity/Depth Superficial Body Position Supine Comments Pt has increased tenderness L anterior lateral malleolus and slight edema PT-OP-T Assessment and Plan Start: 10/21/19 17:48 Freq: Status: Active Protocol: Document 11/11/19 13:01 KS (Rec: 11/11/19 13:46 KS [id number]) Physical Therapy Assessment Rehab Potential Rehabilitation Potential Excellent Evaluation Complexity Number of Personal Factors/Comorbidities 1-2 Number of Body Systems Impaired 3 Clinical Presentation at Evaluation Evolving Impairments Impairments Balance,Functional Activities, Gait,Pain,ROM,Soft Tissue Mobility,Strength Goals Four Impairment Functional limitations left ankle Short Term Goal (STG) demonstrate good single limb stability on left STG Duration 2 weeks Specialty Finishing Utility Person Goal (LTG) demonstrate normal gait and ability to participate in normal Yoga routine LTG Duration 4 weeks Three Impairment Decreased Strength Short Term Goal (STG) Left ankle strength 4+/5 STG Duration 2 weeks Nursing Home Goal (LTG) Left LE strength 5/5 LTG Duration 4 weeks Two Impairment Limited left ankle ROM Short Term Goal (STG) Left ankle dorsiflexion AROM to neutral STG Duration 2 weeks Specialty Finishing Utility Person Goal (LTG) left ankle DF to 3 degrees dorsiflexed LTG Duration 4 weeks One Impairment Pain left ankle Short Term Goal (STG) resolve pain with active ankle motions STG Duration 2 weeks Specialty Finishing Utility Person Goal (LTG) resolve pain with normal functional use left ankle LTG Duration 4 weeks Progress Towards Goals Progress Towards Goals Progressing Toward Goals Assessment Summary Assessment Pt was able to tolerate increased ankle strengthening, stabilization, and ROM exercises today w/o increase in pain. Pt is showing progress w/ tolerance to activity, but does report mild tenderness during STM of L ankle. Slight edema identified in L lateral malleolus.
--- NOTE | 2019-11-18 16:02 | PT.OTN ---
Current Diagnoses Pain in left ankle and joints of left foot (11/18/19) Muscle weakness (generalized) (11/18/19) Unspecified injury of left ankle, initial encounter (11/18/19) Physical Therapy Treatment Note PT-OP-A Visit Information Start: 10/21/19 17:48 Freq: Status: Active Protocol: Document 11/18/19 11:17 EG (Rec: 11/18/19 13:00 EG [id number]) Out-Patient Physical Therapy Visit Information Visit Information Visit Type Treatment Note Visit Note Patient reported this is her last appointment Visit Start Time 11:17 Visit Stop Time 12:00 Total Visit Minutes 43 Visit Number [address] RE[address]TER Visits 0 PT-OP-B Current Condition Start: 10/21/19 17:48 Freq: Status: Active Protocol: Document 10/21/19 09:45 DLM (Rec: 10/25/19 20:28 DLM [id number]) Current Condition History of Current Condition Onset Date 09/05/19 Current Complaints Left ankle pain History of Current Condition She injured her ankle on 09/05 while at work. She has immediate severe pain in her ankle and could not walk on it . She was seen in ED where she was negative for fracture. Her ankle has gradually gotten better. She continues to have pain with certain movements especially quick turns and trying to kneel on ground. She feels her ankle is 75% better . Prior Treatments and Tests rest of ankle, x-rays Treatment Goals Patient/Caregiver Goals resolve the pain in her ankle with normal use Prior Functional Status Baseline Function- ADL's Independent Baseline Function- Mobility Independent Baseline Function- Gait Independent Baseline Function- Work/School Working Baseline Function- Recreation/Hobbies Yoga, Walking Current Functional Impairments (Reported) Functional Limitations- ADL's Independent Functional Limitations- Mobility/Gait she feels she can walk normal on even surfaces, quick turns and kneeling down are painful Functional Limitations- Work/School she is no longer working, she decided to take care of her Mother who was diagnosed with cancer and starting chemo treatments Functional Limitations- Recreation/ pain trying to do Yoga Hobbies Personal Factors Other Personal Factors That May Effect hx of back injury, caring for Therapy/Recovery her Mother who is starting Chemo treatments in the [facility] PT-OP-C Subjective Start: 10/21/19 17:48 Freq: Status: Active Protocol: Document 11/18/19 11:17 EG (Rec: 11/18/19 13:00 EG [id number]) OP-PT Subjective Patient Comments Patient Comments Patient reports that she hasn' t had any pain this week. When doing stretches and turning foot, she can still feel pain a little bit. She is not working now so she is not on her feet like she has been. She reports still been icing it a few times a week. She still sees some swelling but it doesn't bother her. She is currently helping take care of her mom who is currently having chemotherapy so she hasn't had much time for herself lately. Patient Reported Progress Improving PT-OP-D Balance Start: 10/21/19 17:48 Freq: Status: Active Protocol: Document 10/21/19 09:45 DLM (Rec: 10/25/19 20:30 DLM [id number]) Balance Tests Single Limb Standing Single Limb- Right WNL Single Limb- Left increased sway Tandem Tandem Standing increased sway with left LE in the back position Other Other Balance Tests Performed Decreased balance with standing heel walking. Functional weakness seen with standing heel raises. PT-OP-G Mobility & Gait Start: 10/21/19 17:48 Freq: Status: Active Protocol: Document 10/21/19 09:45 DLM (Rec: 10/25/19 20:28 DLM [id number]) OP Mobility Evaluation Bed Mobility Supine to and from Sit Independent Transfers Sit to Stand Independent OP Gait Assessment Gait Gait Assistance Required: Independent Assistive Devices Assistive Device None Comments Gait Comments mild changes in her gait, decreased push off noted on left and mild decreased stance time PT-OP-J Posture/Palpation/Skin Start: 10/21/19 17:48 Freq: Status: Active Protocol: Document 10/21/19 09:45 DLM (Rec: 10/25/19 20:28 DLM [id number]) Posture Evaluation Position Standing Knee Posture (L) Genu Varus,(R) Genu Varus Ankle/Foot Posture (L) Pronated,(R) Pronated Palpation Assessment Location One Palpation Location left lateral ankle Palpation Findings Edema,Tenderness Palpation Details mild scar tissue noted Skin Assessment Edema Assessment Left Ankle Edema Type Pitting Edema Degree 1+ Comments mild pocketing around lateral malleolus Circumference Measurement Ankle Location Left Measurement (Centimeters) 24 Comments Right 23.3 cm PT-OP-K Range of Motion Start: 10/21/19 17:48 Freq: Status: Active Protocol: Document 10/21/19 09:45 DLM (Rec: 10/25/19 20:28 DLM [id number]) Ankle and Foot Goniometric Range of Motion Ankle and Foot Right Active Ankle/Foot ROM WFL Yes Testing Position Supine Dorsiflexion with Knee Extended 3 Plantarflexion 75 Inversion 40 Eversion 19 Left Active Testing Position Supine Plantarflexion 65 Inversion 21 Eversion 22 Ankle and Foot ROM Limitations ROM Limitations Pain Comments left dorsiflexion is lacking 15 degrees to neutral ( plantarflexed 15 degrees), pain with left ankle PF,IV and EV PT-OP-M Strength Start: 10/21/19 17:48 Freq: Status: Active Protocol: Document 10/21/19 09:45 DLM (Rec: 10/25/19 20:28 DLM [id number]) Hip Strength Hip Manual Muscle Testing Left Flexion (L2) 4- Good- Extension (S1) 4+ Good+ Abduction 4+ Good+ Adduction 5 Normal Right Flexion (L2) 5 Normal Extension (S1) 5 Normal Abduction 5 Normal Adduction 5 Normal Knee Strength Knee Manual Muscle Testing Right Flexion (S2) 5 Normal Extension (L3) 5 Normal Left Flexion (S2) 5 Normal Extension (L3) 4+ Good+ Ankle/Foot Strength Ankle and Foot Manual Muscle Testing Left Dorsiflexion (L4) 4+ Good+ Plantarflexion (S1) 4 Good Inversion 4- Good- Eversion (S1) 4 Good Right Dorsiflexion (L4) 5 Normal Plantarflexion (S1) 5 Normal Inversion 5 Normal Eversion (S1) 5 Normal PT-OP-Q Treatments Start: 10/21/19 17:48 Freq: Status: Active Protocol: Document 11/18/19 11:17 EG (Rec: 11/18/19 13:00 EG [id number]) Cardio Equipment Treadmill Duration (Minutes) 6 Speed 2.8-3.0 Incline 1.0 Other felt slight pain in ankle after 6 min Therapeutic Exercises Sitting Exercises Alphabet with Ankle Sitting Exercise Name spelling alphabet Side left Resistance active Reps/Minutes 1x 4 Way Ankle EX Sitting Exercise Name ankle DF/PF/IV/EV Side left Resistance L1 exercise band Reps/Minutes 10 reps each Comments given L2 exercise band for HEP - taught how to do Standing Exercises Yoga poses Standing Exercise Name warrior 1, mountain pose, child's pose, warrior 2 Reps/Minutes 1 min each pose Comments given instructions on how to modify poses with ankle Calf stretch Standing Exercise Name calf stretch Side bilateral Equipment Used Nasir Reps/Minutes 1 min Comments given standing modification for HEP SLS Standing Exercise Name SLS Side bilateral Equipment Used foam Reps/Minutes 1 min each side Comments given for HEP Calf raises Standing Exercise Name Calf raise Side bilateral Reps/Minutes 10x 2 legs/ 5x 1 leg Comments given as HEP Manual Therapy Treatment Joint Mobilizations Talocrural Joint Joint Talocrural Joint Direction AP Grade II Body Position Supine Reps/Duration 90 sec Manual Techniques ROM measurements/DF stretch Type ROM measurements both feet and MMT; DF/calf stretch PROM Body Location L ankle Body Position Supine Comments leg resting on bolster PT-OP-T Assessment and Plan Start: 10/21/19 17:48 Freq: Status: Active Protocol: Document 11/18/19 11:17 EG (Rec: 11/18/19 13:00 EG [id number]) Physical Therapy Assessment Goals Four Impairment Functional limitations left ankle Short Term Goal (STG) demonstrate good single limb stability on left STG Duration MET Custodial Goal (LTG) demonstrate normal gait and ability to participate in normal Yoga routine 11/18/2019: After walking for 6 minutes, feel a little pain in the ankle. Not able to start yoga routine. LTG Duration 4 weeks Three Impairment Decreased Strength Short Term Goal (STG) Left ankle strength 4+/5 11/18/2019: p! with eversion and dorsiflexion. 4/5 all planes STG Duration 2 weeks Otr Owner Operator Truck Driver Goal (LTG) Left LE strength 5/5 11/18/2019: p! with eversion and dorsiflexion. 4/5 all planes LTG Duration 4 weeks Two Impairment Limited left ankle ROM Short Term Goal (STG) Left ankle dorsiflexion AROM to neutral 11/18/2019: 2 deg to neutral with both feet STG Duration 2 weeks Custodial Goal (LTG) left ankle DF to 3 degrees dorsiflexed 11/18/2019: 2 deg to neutral with both feet LTG Duration 4 weeks One Impairment Pain left ankle Short Term Goal (STG) resolve pain with active ankle motions 11/18/2019: No more pain with activity. STG Duration 2 weeks Custodial Goal (LTG) resolve pain with normal functional use left ankle 11/18/2019: 10/25 p! at worse 10% of the day. LTG Duration 4 weeks Assessment Summary Assessment Patient is slightly overwhelmed being the primary caregiver of her mother and would like to do more things on her own before coming back in. She feels she has improved overall but she still gets pain with increased activity. Patient should continue with her HEP and come in for another PT treatment because skilled therapies are warranted to increase her stability in L ankle as well as progress her balance and strength. She has a 10 year old child and is quite young, so it is important to give patient tools to increase her L ankle function. Patient was educated on possible risk of increased ankle sprains due to the lengthen ligament and importance of good supportive shoes when performing activities. Physical Therapy Plan Frequency and Duration Frequency of Treatment 1x/Week Duration of Treatment 4 weeks Plan of Care Start Date 10/21/19 Plan of Care End Date 12/14/19 Next Visit Focus/Plan Next Note Type Treatment Note Next Visit Plan Assess HEP tolerance and progress as needed. See how patient is feeling about her ankle progress and if she has any questions. Progress balance and stabilization exercises. Possible discharge in next couple appointments based on patient's perference with busy schedule. Denisha Monte DPT, supervised all treatment performed by, and agreed with the plan of care, as performed by Bella Jewell, JOSH.
--- NOTE | 2020-03-30 11:30 | PT.OPDS ---
Current Diagnoses Pain in left ankle and joints of left foot (11/18/19) Muscle weakness (generalized) (11/18/19) Unspecified injury of left ankle, initial encounter (11/18/19) Visit Care Team Role Provider Type LISSA Santiago Primary Care Provider [employer] Train Driver Specialty: Medical Address: [address] [place] [address], [facility] Email: [email or web address] LISSA Sandra Attending Provider [employer] Driver Referring Provider Specialty: Family Practice Address: [address] [place] [address], [id number] Email: [email or web address] Visit Number Visit Number 5 Discharge Summary PT-OP-B Current Condition Start: 10/21/19 17:48 Freq: Status: Active Protocol: Document 10/21/19 09:45 DLM (Rec: 10/25/19 20:28 DLM [id number]) Current Condition History of Current Condition Onset Date 09/05/19 Current Complaints Left ankle pain History of Current Condition She injured her ankle on 09/05 while at work. She has immediate severe pain in her ankle and could not walk on it . She was seen in ED where she was negative for fracture. Her ankle has gradually gotten better. She continues to have pain with certain movements especially quick turns and trying to kneel on ground. She feels her ankle is 75% better . Prior Treatments and Tests rest of ankle, x-rays Treatment Goals Patient/Caregiver Goals resolve the pain in her ankle with normal use Prior Functional Status Baseline Function- ADL's Independent Baseline Function- Mobility Independent Baseline Function- Gait Independent Baseline Function- Work/School Working Baseline Function- Recreation/Hobbies Yoga, Walking Current Functional Impairments (Reported) Functional Limitations- ADL's Independent Functional Limitations- Mobility/Gait she feels she can walk normal on even surfaces, quick turns and kneeling down are painful Functional Limitations- Work/School she is no longer working, she decided to take care of her Mother who was diagnosed with cancer and starting chemo treatments Functional Limitations- Recreation/ pain trying to do Yoga Hobbies Personal Factors Other Personal Factors That May Effect hx of back injury, caring for Therapy/Recovery her Mother who is starting Chemo treatments in the infusion center PT-OP-C Subjective Start: 10/21/19 17:48 Freq: Status: Active Protocol: Document 11/18/19 11:17 EG (Rec: 11/18/19 13:00 EG [id number]) OP-PT Subjective Patient Comments Patient Comments Patient reports that she hasn' t had any pain this week. When doing stretches and turning foot, she can still feel pain a little bit. She is not working now so she is not on her feet like she has been. She reports still been icing it a few times a week. She still sees some swelling but it doesn't bother her. She is currently helping take care of her mom who is currently having chemotherapy so she hasn't had much time for herself lately. Patient Reported Progress Improving PT-OP-D Balance Start: 10/21/19 17:48 Freq: Status: Active Protocol: Document 10/21/19 09:45 DLM (Rec: 10/25/19 20:30 DLM [id number]) Balance Tests Single Limb Standing Single Limb- Right WNL Single Limb- Left increased sway Tandem Tandem Standing increased sway with left LE in the back position Other Other Balance Tests Performed Decreased balance with standing heel walking. Functional weakness seen with standing heel raises. PT-OP-G Mobility & Gait Start: 10/21/19 17:48 Freq: Status: Active Protocol: Document 10/21/19 09:45 DLM (Rec: 10/25/19 20:28 DLM [id number]) OP Mobility Evaluation Bed Mobility Supine to and from Sit Independent Transfers Sit to Stand Independent OP Gait Assessment Gait Gait Assistance Required: Independent Assistive Devices Assistive Device None Comments Gait Comments mild changes in her gait, decreased push off noted on left and mild decreased stance time PT-OP-J Posture/Palpation/Skin Start: 10/21/19 17:48 Freq: Status: Active Protocol: Document 10/21/19 09:45 DLM (Rec: 10/25/19 20:28 DLM [id number]) Posture Evaluation Position Standing Knee Posture (L) Genu Varus,(R) Genu Varus Ankle/Foot Posture (L) Pronated,(R) Pronated Palpation Assessment Location One Palpation Location left lateral ankle Palpation Findings Edema,Tenderness Palpation Details mild scar tissue noted Skin Assessment Edema Assessment Left Ankle Edema Type Pitting Edema Degree 1+ Comments mild pocketing around lateral malleolus Circumference Measurement Ankle Location Left Measurement (Centimeters) 24 Comments Right 23.3 cm PT-OP-K Range of Motion Start: 10/21/19 17:48 Freq: Status: Active Protocol: Document 10/21/19 09:45 DLM (Rec: 10/25/19 20:28 DLM [id number]) Ankle and Foot Goniometric Range of Motion Ankle and Foot Right Active Ankle/Foot ROM WFL Yes Testing Position Supine Dorsiflexion with Knee Extended 3 Plantarflexion 75 Inversion 40 Eversion 19 Left Active Testing Position Supine Plantarflexion 65 Inversion 21 Eversion 22 Ankle and Foot ROM Limitations ROM Limitations Pain Comments left dorsiflexion is lacking 15 degrees to neutral ( plantarflexed 15 degrees), pain with left ankle PF,IV and EV PT-OP-M Strength Start: 10/21/19 17:48 Freq: Status: Active Protocol: Document 10/21/19 09:45 DLM (Rec: 10/25/19 20:28 DLM [id number]) Hip Strength Hip Manual Muscle Testing Left Flexion (L2) 4- Good- Extension (S1) 4+ Good+ Abduction 4+ Good+ Adduction 5 Normal Right Flexion (L2) 5 Normal Extension (S1) 5 Normal Abduction 5 Normal Adduction 5 Normal Knee Strength Knee Manual Muscle Testing Right Flexion (S2) 5 Normal Extension (L3) 5 Normal Left Flexion (S2) 5 Normal Extension (L3) 4+ Good+ Ankle/Foot Strength Ankle and Foot Manual Muscle Testing Left Dorsiflexion (L4) 4+ Good+ Plantarflexion (S1) 4 Good Inversion 4- Good- Eversion (S1) 4 Good Right Dorsiflexion (L4) 5 Normal Plantarflexion (S1) 5 Normal Inversion 5 Normal Eversion (S1) 5 Normal PT-OP-T Assessment and Plan Start: 10/21/19 17:48 Freq: Status: Active Protocol: Document 03/30/20 11:29 SAK (Rec: 03/30/20 11:30 SAK [id number]) Physical Therapy Plan Discharge Physical Therapy Discharge Reasons No Longer Attending PT Discharge Comments due to Covid19. No PT needs at this time; last seen 11/18/19 .
== END 2020-03-31 13:02 ==
LOC: PHYS 11:15
PROVIDERS: PCP Registered Nurse; Referring Provider Nurse Practitioner Family; Visit Provider Nurse Practitioner Family
DX: S99.912A Unspecified injury of left ankle, initial encounter (principal); M25.572 Pain in left ankle and joints of left foot; M62.81 Muscle weakness (generalized)
CPT/HCPCS: 97110; 97140; 97162

== ENCOUNTER → 2020-08-18 17:47 | Outpatient (CLI) | payer OTHER, MEDICAID, SELFPAY ==
[2020-08-18 18:30] LABS: Pregnancy Test Serum,Qual Negative (Negative)
== END ==
PROVIDERS: PCP Registered Nurse Diabetes Educator; Referring Provider Family Medicine; Visit Provider Family Medicine
DX: N92.6 Irregular menstruation, unspecified (principal); Z31.9 Encounter for procreative management, unspecified
CPT/HCPCS: 36415; 84703

== ENCOUNTER → 2020-09-18 17:09 | Outpatient (CLI) | payer OTHER, SELFPAY ==
[2020-09-18 18:05] LABS: HCG Quantitative /Beta subunit < 2.4 mIU/mL
[2020-09-18 18:06] LABS: Free T4, Direct Thyroxine 0.87 ng/dL (0.78-2.19)
[2020-09-18 18:20] LABS: Thyroid Stimulating Hormone 2.08 uIU/mL (0.47-4.68)
[2020-09-18 18:22] LABS: Follicle Stimulating Hormone 1.56 mIU/mL; Luteinizing Hormone 0.35 mIU/mL
== END ==
PROVIDERS: PCP Registered Nurse Diabetes Educator; Referring Provider Obstetrics & Gynecology; Visit Provider Obstetrics & Gynecology
DX: N97.0 Female infertility associated with anovulation (principal); N91.2 Amenorrhea, unspecified
CPT/HCPCS: 36415; 83001; 83002; 84439; 84443; 84702

== ENCOUNTER → 2020-12-25 14:48 | Outpatient (CLI) | payer OTHER, MEDICAID, SELFPAY ==
--- NOTE | 2020-12-25 14:49 | DI.US.S_ITS ---
PROCEDURE: US PELVIC COMPLETE INDICATIONS: Amenorrhea/hx ovarian cyst TECHNIQUE: Real-time scanning was performed of the pelvic organs, with image documentation. Additional endovaginal scanning was necessary due to incomplete visualization of the adnexal and endometrial structures by transabdominal scanning. COMPARISON: [facility], US, US PELVIC COMPLETE, 10/03/2020, 15:12. FINDINGS: Uterus: Uterus is normal in size at 5.8 x 3.6 x 4.8 cm. The endometrium measures 5 mm in combined thickness. Ovaries: The right ovary measures 2.2 x 3.5 x 1.8 cm. The left ovary measures 1.8 x 2.8 x 3.6 cm. The ovaries have a normal sonographic appearance. More than 12 follicles can be seen involving each ovary. No adnexal masses are seen. Normal appearing arterial waveforms are confirmed to each ovary. Other: No pathologic free abdominal or pelvic fluid. IMPRESSION: More than 12 follicles can be seen involving each ovary, which is consistent with polycystic ovarian syndrome. Dictated by: Artie Soler M.D. on 12/25/2020 at 17:06 Approved by: Artie Soler M.D. on 12/25/2020 at 17:07
== END ==
PROVIDERS: PCP Registered Nurse Diabetes Educator; Referring Provider Obstetrics & Gynecology; Visit Provider Obstetrics & Gynecology
DX: E28.2 Polycystic ovarian syndrome (principal); N92.6 Irregular menstruation, unspecified
CPT/HCPCS: 76830; 76856

== ENCOUNTER → 2020-12-29 13:33 | Outpatient (CLI) | payer OTHER, MEDICAID, SELFPAY ==
[2020-12-29 14:33] LABS: Glucose 94 mg/dL (70-100)
[2020-12-30 08:08] LABS: Insulin Level Total 5.7 uIU/mL (2.6-24.9)
== END ==
PROVIDERS: PCP Registered Nurse Diabetes Educator; Referring Provider Obstetrics & Gynecology; Visit Provider Obstetrics & Gynecology
DX: E28.2 Polycystic ovarian syndrome (principal); N97.0 Female infertility associated with anovulation
CPT/HCPCS: 36415; 82947; 83525

== ENCOUNTER 2021-11-03 22:45 | Emergency (ER) | payer OTHER, MEDICAID, SELFPAY ==
[2021-11-03 22:51] VITALS: BP 123/77; PULSE 94; O2SAT 100
[2021-11-03 22:54] VITALS: BP 123/77; PULSE 89; RESP 17; TEMP 36.6; O2SAT 100
[2021-11-03 23:00] VITALS: PULSE 91; O2SAT 100
--- NOTE | 2021-11-03 23:22 | DI.RAD.S_ITS ---
PROCEDURE: XR CHEST 1V INDICATIONS: chest pain TECHNIQUE: One view of the chest was acquired. COMPARISON: [facility], CHEST 2 VIEW, 02/20/2012, 13:05. [facility], CHEST 1 VIEW, 03/23/2009, 7:38. FINDINGS: Surgical changes and devices: None. Lungs and pleura: Lungs are clear. No pleural effusions or pneumothorax. Mediastinum: Mediastinal contours appear normal. Heart size is normal. Bones and chest wall: No suspicious bony lesions. Overlying soft tissues appear unremarkable. IMPRESSION: Normal for age, source of current chest pain symptoms is not seen. Dictated by: Manuel Gunter M.D. on 11/03/2021 at 23:52 Approved by: Manuel Gunter M.D. on 11/03/2021 at 23:53
--- NOTE | 2021-11-03 23:22 | ED.CHESTPAIN ---
HPI - Chest Pain General Chief Complaint: Chest Pain Stated Complaint: severe abd/chest pain 19 weeks preg. Time Seen by Provider: 11/03/21 22:59 Source: patient Mode of arrival: Ambulatory Limitations: no limitations History of Present Illness HPI narrative: Patient is a 31-year-old female is who is currently 19 weeks presenting today with upper abdominal pain. She actually just found out last week that she was . She does not typically get. She has not had 1 in 2 years she is told she can get without medication this is a surprise for her she went to [facility] in [place] last week for she did have an ultrasound. Today she had 2 episodes of upper abdominal pain no nausea vomiting lasted for about 20 minute she tried to walk it off. No real chest pain no nausea vomiting or fever. sHe has no vaginal bleeding. She has been smoking both cigarettes and marijuana throughout this because she did know she was also drinking alcohol occasionally. She is now stopping all of these things now that she knows that she is . Related Data Previous Rx's Medication Instructions Recorded bupropion HCl 150 mg tablet,12 hr 150 mg PO DAILY #90 tab 07/06/20 sustained-release escitalopram oxalate 10 mg tablet 10 mg PO DAILY #90 tab 07/06/20 metoclopramide HCl 10 mg tablet 10 mg PO BID PRN #30 tab 07/06/20 naproxen 500 mg tablet 500 mg PO BID PRN #30 tab 07/06/20 propranolol 20 mg tablet 20 mg PO BID #180 tab 07/06/20 trazodone 100 mg tablet 100 mg PO BEDTIME #90 tab 07/06/20 letrozole 2.5 mg tablet 2.5 mg PO DAILY #5 tab 01/12/21 levonorgestrel-ethinyl estradiol 1 tab PO DAILY #28 tab 01/12/21 0.1 mg-20 mcg tablet (Aviane) Allergies Allergy/AdvReac Type Severity Reaction Status Date / Time doxycycline [DOXYCYCLINE] Allergy Intermediate Hives Verified 12/27/20 10:45 Review of Systems Review of Systems Narrative: GENERAL: Denies chills, fatigue, malaise, fever, sweats, travel HEENT: Denies sinus pain, ear pain, sore throat, difficulty swallowing, neck pain RESPIRATORY: Denies dyspnea, cough, wheezing, hemoptysis, sputum. CARDIOVASCULAR: Denies chest pain, palpitations, orthopnea, edema GASTROINTESTINAL: See HPI : Denies dysuria, frequency, incontinence, hematuria, urinary retention, flank pain. MUSCULOSKELETAL: Denies weakness, joint pain, or bony pain SKIN: No rash, no erythema, no pruritus NEUROLOGIC: Denies weakness, dizziness, headache, numbness, change in speech, confusion PSYCHIATRIC: No concerning psychosocial issues. 12 point review of systems is negative except for those stated above and HPI Patient History Medical History Depression Family history of ovarian cancer Healthy female Insomnia Irregular menstrual cycle Late menses Nightmares Patient desires Screening for cervical cancer Substance use disorder Family History Father Diabetes mellitus History of heart disease Hyperlipidemia Hypertension Mother Ovarian cancer Social History Smoking Status: Current every day smoker alcohol intake: current substance use type: marijuana Smoking Status: Current every day smoker alcohol intake frequency: a few times a week Substance Use Type: marijuana Exam Initial Vital Signs Initial Vital Signs: Vital Signs Pulse Rate 94 H 11/03/21 22:51 Blood Pressure 123/77 11/03/21 22:51 Pulse Oximetry 100 11/03/21 22:51 GENERAL: Alert well-appearing 31-year-old femaleand in no acute distress. HEENT: Head atraumatic,EOMI, pupils reactive, face symmetric, moist mucous membranes CARDIOVASCULAR: Regular rate and rhythm without murmurs, rubs or gallops. RESPIRATORY: Breath sounds equal bilaterally, no wheezes rales or rhonchi. ABDOMEN: Soft, gravid mild epigastric pain minimal right upper quadrant pain no guarding or rebound : No CVA tenderness EXTREMITIES: Normal range of motion, no clubbing or edema. Neurovascularly intact NEUROLOGICAL: Alert and oriented x4. SKIN: Warm, dry, no laceration, no petechiae, no rashes or lesions. Course Orders Ordered: ED Orders 11/03/21 23:22 XR chest 1V Stat EKG-12 Lead Stat 11/03/21 23:28 Complete Blood Count AUTO DIFF Stat Comprehensive Metabolic Panel Stat Lipase Stat Magnesium Stat Troponin & CK Cardiac Panel Stat 11/03/21 23:30 US OB limited Stat US abdomen limited Stat Vital Signs Vital signs: Vital Signs - 8 hr 11/03/21 22:51 11/03/21 22:54 11/03/21 23:00 Temperature 97.8 F Pulse Rate 94 H 89 91 H Respiratory Rate 17 Blood Pressure 123/77 123/77 Pulse Oximetry 100 100 100 11/03/21 23:30 11/04/21 00:00 11/04/21 00:30 Temperature Pulse Rate 85 93 H 96 H Respiratory Rate Blood Pressure Pulse Oximetry 100 100 98 11/04/21 01:00 11/04/21 01:06 11/04/21 01:10 Temperature Pulse Rate 95 H 100 H 97 H Respiratory Rate 16 Blood Pressure 106/67 106/67 Pulse Oximetry 100 99 100 MDM - Chest Pain Lab Data Result diagrams: 11/03/21 23:28 11/03/21 23:28 Labs: Lab Results 11/03/21 11/03/21 Range/Units 23:28 23:28 WBC 9.8 (4.5-11.0) X10^3/uL RBC 3.32 L (4.0-5.2) X10^6/uL Hgb 10.4 L (12.0-16.0) g/dL Hct 29.2 L (36-46) % MCV 88.0 (80-100) fL MCH 31.2 (26-34) PG MCHC 35.4 (30-36) % RDW 12.9 (11.6-14.8) % Plt Count 282 (150-400) X10^3/uL Neut % (Auto) 70.1 (50-75) % Lymph % (Auto) 24.5 L (25-40) % [place] % (Auto) 4.0 (3-14) % Eos % (Auto) 0.5 L (2-4) % Baso % (Auto) 0.9 (0-2) % Neut # (Auto) 6900 (5587-9066) /uL Lymph # (Auto) 2400 (4921-0841) /uL [place] # (Auto) 400 (0-900) /uL Eos # (Auto) 100 (0-450) /uL Baso # (Auto) 100 (0-100) /uL Sodium 134 L (137-145) mmol/L Potassium 4.2 (3.4-5.1) mmol/L Chloride 106 (98-107) mmol/L Carbon Dioxide 27 (22-32) mmol/L BUN 7 (7-17) mg/dL Creatinine 0.50 L (0.52-1.04) mg/dL Estimated GFR > 60.0 (>60) mL/min BUN/Creatinine Ratio 14.0 (6-22) Glucose 125 H (70-100) mg/dL Calcium 9.1 (8.4-10.2) mg/dL Magnesium 1.8 (1.6-2.3) mg/dL Total Bilirubin 0.2 (0.2-1.3) mg/dL AST 22 (14-36) IU/L ALT 16 (<35) IU/L Alkaline Phosphatase 49 (38-126) U/L Total Creatine Kinase 22 L (30-135) U/L CK-MB (CK-2) TNP CK-MB (CK-2) Rel Index TNP Troponin I < 0.012 (0.01-0.034) ng/mL Total Protein 6.6 (6.3-8.2) g/dL Albumin 3.7 (3.5-5.0) g/dL Globulin 2.9 (1.7-4.1) g/dL Albumin/Globulin Ratio 1.3 (1.0-2.8) Lipase 140 (23-300) U/L Imaging Data US - abdomen: Radiologist's Impression: PROCEDURE: US ABDOMEN LIMITED ? INDICATIONS:? RUQ ? TECHNIQUE:? Real-time focused scanning was performed of the abdomen, with image documentation.? ? COMPARISON:? CT and ultrasound 02/23/19 and 05/26/16 reviewed. ? FINDINGS:? The liver is normal in size and echotexture.? The gallbladder is partially contracted-the patient reports having eaten at approximately 8 in the evening.? Small gallstones are seen within the gallbladder lumen but the gallbladder wall is not thickened at 1.6 mm.? The bile ducts are normal in caliber. ? IMPRESSION:? Partially contracted gallbladder contains several small gallstones but there is no sign of acute cholecystitis or biliary obstruction. ? ? Dictated by: Manuel Gunter M.D. on 11/04/2021 at 0:29 ? ? Chest x-ray: Radiologist's Impression: PROCEDURE:? XR CHEST 1V ? INDICATIONS:? chest pain ? TECHNIQUE:? One view of the chest was acquired.? ? COMPARISON:? [facility], , CHEST 2 VIEW, 02/20/2012, 13:05.? [facility], , CHEST 1 VIEW, 03/23/2009, 7:38. ? FINDINGS:? ? Surgical changes and devices:? None.? ? Lungs and pleura:? Lungs are clear.? No pleural effusions or pneumothorax.? ? Mediastinum:? Mediastinal contours appear normal.? Heart size is normal.? ? Bones and chest wall:? No suspicious bony lesions.? Overlying soft tissues appear unremarkable.? ? IMPRESSION:? Normal for age, source of current chest pain symptoms is not seen. ? ? Dictated by: Manuel Gunter M.D. on 11/03/2021 at 23:52 ? ? US - OB: Radiologist's Impression: PROCEDURE:? US OB LIMITED ? INDICATIONS:? PAIN 19 WEEKS ? OUTSIDE/PRIOR DATING DATA:? Last menstrual period (LMP):? Not available LMP-based estimated date of delivery (BIA):? Not available.? First dating scan (date and location):? This study.? Estimated date of delivery (BIA) from first dating scan:? 03/31/22. The calculations are made using the current BIA of 03/31/22.? ? TECHNIQUE: Real-time scanning was performed of the fetus, with image documentation.? Endovaginal scanning:? Not needed ? COMPARISON:? [facility], , US ABDOMEN LIMITED, 11/03/2021, 23:46. ? FINDINGS:? A single living intrauterine gestation is present.? Presentation:? Breech.? Placenta:? Placental position is anterior, without previa.? ? Amniotic fluid index:? 13.5 cm, normal range is 5-24 cm. heart rate:? 140 beats per minute.? Maternal cervical canal:? 3.9 cm long.? Normal lower limit is 2.5 cm.? ? biometry is internally consistent with a current gestational age of 18 weeks 6 days, based on BPD of 4.5 cm (19 weeks 3 days); head circumference of 15.7 cm (18 weeks 4 days); abdominal circumference of 13.0 cm (18 weeks 4 days); femur length of 2.8 cm (18 weeks 5 days). ? ? IMPRESSION:? Single living intrauterine gestation with current estimated gestational age by biometry is 18 weeks 6 days and there is no sign of placental abruption or perigestational hemorrhage.? Breech presentation. ? ? Dictated by: Manuel Gunter M.D. on 11/04/2021 at 0:31 ? ? ECG Data Interpretation: Normal sinus rhythm rate 86 [place] interval 114 QRS [address] changes or T-wave inversions wrist. MDM Narrative Medical decision making narrative: Patient is currently 19 weeks she cannot she was last week. Currently experiencing some epigastric and right upper quadrant pain blood work is overall reassuring ultrasound does show multiple small gallstones. No elevated bilirubin LFTs or leukocytosis. Discussed with patient diet control and pain control. The patient has not needed anything for pain while in the emergency department. Overall feeling better 0100 Dr. Nelson surgery updated patient's symptoms and test results agrees with outpatient follow-up at this time and diet control. Nursing initiated orders were placed by nursing staff, chest pain order set was put in unfortunately chest x-ray was left in, I tried to cancel a chest x-ray but it was already taken. Discharge Plan Departure Patient Disposition: Home Clinical Impression: Cholelithiasis affecting in second trimester, antepartum Instructions: DI for Gallstones Activity Restrictions/Additional Instructions: *You have been diagnosed with cholelithiasis in *What to do: Please avoid all fatty foods it will help with your gallbladder and pain. You will likely need her gallbladder taken out eventually however no emergent need at this time. You may follow-up with surgery to discuss options Please stop smoking both nicotine and marijuana Please stop alcohol use *Continue to take medications as directed Tylenol 1000 mg every 6 hours if needed for pain vitamins *Follow up with your primary care provider in 2-3 days or call [phone] Dr. Nelson call next week to schedule follow-up appointment *Return to ER if you should have increasing pain persistent vomiting, fever or any new, worsening or concerning symptoms Prescriptions: No Action levonorgestrel-ethinyl estrad [Aviane] 0.1-20 mg-mcg tablet 1 tab PO DAILY Qty: 28 1RF letrozole 2.5 mg tablet 2.5 mg PO DAILY Qty: 5 0RF Rx Instructions: 1 tablet day 3-7 of cycle bupropion HCl 150 mg tablet sustained-release 12 hr 150 mg PO DAILY Qty: 90 3RF escitalopram oxalate 10 mg tablet 10 mg PO DAILY Qty: 90 3RF metoclopramide HCl 10 mg tablet 10 mg PO BID PRN (Reason: migraine, nausea) Qty: 30 1RF naproxen 500 mg tablet 500 mg PO BID PRN (Reason: migraine headache) Qty: 30 2RF propranolol 20 mg tablet 20 mg PO BID Qty: 180 3RF trazodone 100 mg tablet 100 mg PO BEDTIME Qty: 90 3RF Referrals: Maura Nelson MD [Physician] - Ramon Hilton ARNP [Primary Care Provider] -
[2021-11-03 23:30] VITALS: PULSE 85; O2SAT 100
--- NOTE | 2021-11-03 23:30 | DI.US.S_ITS ---
PROCEDURE: US ABDOMEN LIMITED INDICATIONS: RUQ TECHNIQUE: Real-time focused scanning was performed of the abdomen, with image documentation. COMPARISON: CT and ultrasound 02/23/19 and 05/26/16 reviewed. FINDINGS: The liver is normal in size and echotexture. The gallbladder is partially contracted-the patient reports having eaten at approximately 8 in the evening. Small gallstones are seen within the gallbladder lumen but the gallbladder wall is not thickened at 1.6 mm. The bile ducts are normal in caliber. IMPRESSION: Partially contracted gallbladder contains several small gallstones but there is no sign of acute cholecystitis or biliary obstruction. Dictated by: Manuel Gunter M.D. on 11/04/2021 at 0:29 Approved by: Manuel Gunter M.D. on 11/04/2021 at 0:31
--- NOTE | 2021-11-03 23:30 | DI.US.S_ITS ---
PROCEDURE: US OB LIMITED INDICATIONS: PAIN 19 WEEKS OUTSIDE/PRIOR DATING DATA: Last menstrual period (LMP): Not available LMP-based estimated date of delivery (BIA): Not available. First dating scan (date and location): This study. Estimated date of delivery (BIA) from first dating scan: 03/31/22. The calculations are made using the current BIA of 03/31/22. TECHNIQUE: Real-time scanning was performed of the fetus, with image documentation. Endovaginal scanning: Not needed COMPARISON: [facility], , US ABDOMEN LIMITED, 11/03/2021, 23:46. FINDINGS: A single living intrauterine gestation is present. Presentation: Breech. Placenta: Placental position is anterior, without previa. Amniotic fluid index: 13.5 cm, normal range is 5-24 cm. heart rate: 140 beats per minute. Maternal cervical canal: 3.9 cm long. Normal lower limit is 2.5 cm. biometry is internally consistent with a current gestational age of 18 weeks 6 days, based on BPD of 4.5 cm (19 weeks 3 days); head circumference of 15.7 cm (18 weeks 4 days); abdominal circumference of 13.0 cm (18 weeks 4 days); femur length of 2.8 cm (18 weeks 5 days). IMPRESSION: Single living intrauterine gestation with current estimated gestational age by biometry is 18 weeks 6 days and there is no sign of placental abruption or perigestational hemorrhage. Breech presentation. Dictated by: Manuel Gunter M.D. on 11/04/2021 at 0:31 Approved by: Manuel Gunter M.D. on 11/04/2021 at 0:36
--- NOTE | 2021-11-03 23:33 | PC.NURSE ---
pt states that twice today she has had upper abd pain that felt crampy in nature lasting for about 10-20 min, pt states has been eating greasy foods such as pizza rolls today, pt is , has not had a menstrual cycle for 2 yrs and was told she could not get so she was not expecting to be told she was, last had no problems
[2021-11-03 23:44] LABS: Add Manual Diff / Slide Review NO; Basophils Absolute Auto 100 /uL (0-100); Basophils Percent Auto 0.9 % (0-2); Eosinophils Absolute Auto 100 /uL (0-450); Eosinophils Percent Auto 0.5 % (2-4); Hematocrit 29.2 % (36-46); Hemoglobin 10.4 g/dL (12.0-16.0); Lymphocytes Absolute Auto 2400 /uL (1100-4500); Lymphocytes Percent Auto 24.5 % (25-40); Mean Corpuscular HGB Conc 35.4 % (30-36); Mean Corpuscular Hemoglobin 31.2 PG (26-34); Monocytes Absolute Auto 400 /uL (0-900); Neutrophils Absolute Auto 6900 /uL (1500-7000); Neutrophils Percent Auto 70.1 % (50-75); Platelet Count 282 X10^3/uL (150-400); Red Blood Cell Count 3.32 X10^6/uL (4.0-5.2); Red Cell Distribution Width 12.9 % (11.6-14.8); White Blood Cell Count 9.8 X10^3/uL (4.5-11.0)
[2021-11-03 23:49] LABS: Alanine Aminotransferase 16 IU/L (<35); Albumin 3.7 g/dL (3.5-5.0); Albumin Globulin Ratio 1.3 (1.0-2.8); Alkaline Phosphatase 49 U/L (38-126); Aspartate Aminotransferase 22 IU/L (14-36); Bilirubin Total 0.2 mg/dL (0.2-1.3); Blood Urea Nitrogen 7 mg/dL (7-17); Calcium 9.1 mg/dL (8.4-10.2); Carbon Dioxide 27 mmol/L (22-32); Chloride 106 mmol/L (98-107); Creatine Kinase 22 U/L (30-135); Estimated Glomerular Filt Rate > 60.0 mL/min (>60); Globulin 2.9 g/dL (1.7-4.1); Glucose 125 mg/dL (70-100); HEMOLYSIS < 15 (0-50); Lipase 140 U/L (23-300); Magnesium 1.8 mg/dL (1.6-2.3); Potassium 4.2 mmol/L (3.4-5.1); Sodium 134 mmol/L (137-145); Total Protein 6.6 g/dL (6.3-8.2)
[2021-11-04] VITALS: PULSE 93; O2SAT 100
[2021-11-04] LABS: Troponin I < 0.012 ng/mL (0.01-0.034)
[2021-11-04 00:30] VITALS: PULSE 96; O2SAT 98
[2021-11-04 01:00] VITALS: PULSE 95; O2SAT 100
[2021-11-04 01:06] VITALS: BP 106/67; PULSE 100; O2SAT 99
[2021-11-04 01:10] VITALS: BP 106/67; PULSE 97; RESP 16; O2SAT 100
== END 2021-11-04 01:11 | disposition home or self-care (01) ==
PROVIDERS: Emergency Provider Emergency Medicine; PCP Registered Nurse Diabetes Educator
DX: O99.612 Diseases of the digestive system complicating pregnancy, second trimester (principal); K80.20 Calculus of gallbladder without cholecystitis without obstruction; O99.332 Smoking (tobacco) complicating pregnancy, second trimester; F17.210 Nicotine dependence, cigarettes, uncomplicated; Z3A.19 19 weeks gestation of pregnancy
CPT/HCPCS: 36415; 71045; 76705; 76815; 80053; 82550; 83690; 83735; 84484; 85025; 93010; 99284

== ENCOUNTER → 2021-11-13 12:42 | Outpatient (CLI) | payer OTHER, MEDICAID, SELFPAY ==
[2021-11-13 14:15] LABS: Add Manual Diff / Slide Review NO; Basophils Absolute Auto 0 /uL (0-100); Basophils Percent Auto 0.5 % (0-2); Eosinophils Absolute Auto 0 /uL (0-450); Eosinophils Percent Auto 0.2 % (2-4); Hematocrit 31.2 % (36-46); Lymphocytes Absolute Auto 1800 /uL (1100-4500); Lymphocytes Percent Auto 35.5 % (25-40); Mean Corpuscular HGB Conc 35.2 % (30-36); Mean Corpuscular Hemoglobin 30.9 PG (26-34); Mean Corpuscular Volume 87.9 fL (80-100); Monocytes Absolute Auto 300 /uL (0-900); Monocytes Percent Auto 5.7 % (3-14); Neutrophils Absolute Auto 3000 /uL (1500-7000); Neutrophils Percent Auto 58.1 % (50-75); Platelet Count 324 X10^3/uL (150-400); Red Blood Cell Count 3.55 X10^6/uL (4.0-5.2); Red Cell Distribution Width 12.9 % (11.6-14.8); White Blood Cell Count 5.2 X10^3/uL (4.5-11.0)
[2021-11-13 17:07] LABS: Urine N gonorrhoeae NOT DETECTED
[2021-11-13 18:16] LABS: Urine Chlamydia NOT DETECTED
[2021-11-14 08:02] LABS: RPR Screen Non Reactive (Non Reactive)
[2021-11-14 08:09] LABS: Varicella IgG Antibody 554 index (Immune >165)
[2021-11-15 16:04] LABS: HIV 1 & 2 Ab/Ag 4th Gen Combo NEGATIVE (NEGATIVE); Hep C Virus Ab w/Reflex Quant NEGATIVE s/c (NEGATIVE); Hepatitis B Surface Antigen NEGATIVE s/c (NEGATIVE); Rubella Antibody IgG 22.1 IU/mL (>15)
[2021-11-15 23:41] LABS: AFP, Serum 50.2 ng/mL (.); Calc Gestational Age Ultrasound (.); Inhibin A, Dimeric 255.15 pg/mL (.); Inhibin A, MoM 1.39 (.); Maternal Ethnicity Caucasian (.); Maternal Weight 161 lbs (.); Number of Fetuses No (.); OSBR Risk 1 IN 10000 (.); Results Report (.); Test Results *Screen Negative* (.); hCG, MoM 1.32 (.); hCG, Serum 31239 mIU/mL (.)
== END ==
PROVIDERS: PCP Registered Nurse Diabetes Educator; Referring Provider Obstetrics & Gynecology; Visit Provider Obstetrics & Gynecology
DX: Z34.82 Encounter for supervision of other normal pregnancy, second trimester (principal); Z3A.20 20 weeks gestation of pregnancy
CPT/HCPCS: 36415; 80055; 82105; 82677; 84702; 86336; 86787; 86803; 86850; 86900; 86901; 87389; 87491; 87591

== ENCOUNTER → 2021-11-15 10:24 | Outpatient (CLI) | payer OTHER, MEDICAID, SELFPAY ==
[2021-11-15 11:04] LABS: COVID19 -Nasal RAPID POSITIVE (Negative)
[2021-11-15 11:13] LABS: Appearance Urine UA CLEAR; Bilirubin Urine UA NEGATIVE (NEGATIVE); Color Urine UA YELLOW; Glucose Urine UA NEGATIVE (Negative); Ketones Urine UA NEGATIVE (NEGATIVE); Leukocyte Esterase Urine UA NEGATIVE (NEGATIVE); Nitrite Urine UA NEGATIVE (Negative); Occult Blood Urine UA NEGATIVE (Negative); Protein Urine UA NEGATIVE (Negative); Urobilinogen Urine UA 0.2 E.U./dL (0.2)
[2021-11-15 11:24] LABS: pH Urine UA 6.5 (4.5-8.0)
== END ==
PROVIDERS: Surgery; PCP Registered Nurse Diabetes Educator; Referring Provider Obstetrics & Gynecology; Visit Provider Obstetrics & Gynecology
DX: Z20.822 Contact with and (suspected) exposure to COVID-19; U07.1 COVID-19; Z34.80 Encounter for supervision of other normal pregnancy, unspecified trimester
CPT/HCPCS: 36415; 81003; 87086; 87635; C9803

== ENCOUNTER 2021-11-17 07:21 | Day surgery (SDC) | payer OTHER, MEDICAID, SELFPAY ==
[2021-11-17] VITALS (9 sets, daily range): BP systolic 98–112; BP diastolic 63–75; PULSE 88–104; RESP 12–18; TEMP 35.7–36.6; O2SAT 94–98; BMI 27.6
--- NOTE | 2021-11-17 | PATH_ITS ---
[facility] Accession Number: [id number] . 01 Material submitted: . gallbladder - GALLBLADDER . 02 Diagnosis: Gallbladder, Cholecystectomy: Chronic cholecystitis, cholesterolosis, and cholelithiasis. MRV 11/22/2021 1555 Local . 02 Electronically signed: . Soumya Sousa MD, Pathologist NPI- [id number] . 01 Gross description: . Specimen is received in formalin labeled with the patient's name and gallbladder, is composed of an intact gallbladder which is received stapled at the cystic duct margin. The gallbladder measures 5.5 x 2.0 x 1.5 cm. The serosal surface is curran-jansen and smooth. The hepatic surface is roughened. The gallbladder is opened to reveal biliary sludge and numerous minute yellow choleliths ranging from 0.2 x 0.1 x 0.1 cm to 0.1 x 0.1 x 0.1 cm. A discrete lesion is not identified. The mucosa is green, velvety, smooth. The wall thickness is 0.1 cm. Waybill Clerk sections are submitted as follows: Cassette A1 - cystic duct margin en face, inked blue; cassette A2 - front desk representative sections of the gallbladder mucosa. (SBG: [id number]) /FRR 11/21/2021 1750 Local . 02 Pathologist provided ICD-10: K80.20 . 02 CPT . 080794 Specimen Comment: A courtesy copy of this report has been sent to [phone] Performed at: 01 [facility] Cyt[facility] [address] [place] [address] [id number] MD Brodie Walker MD Phone: [phone] Performed at: 02 [facility] [id number] [place] [address] [id number] MD Zeynep Tan MD Phone: [phone]
--- NOTE | 2021-11-17 08:11 | SUR.PREOP ---
Dior Medina Rn from L&D. heart tones per doppler 150.
--- NOTE | 2021-11-17 08:19 | SUR.OPER ---
Supine on padded OR bed, head on pillow, safety belt at thigh, left arm padded and tucked at side. Right arm secured on padded arm board <90 degrees abduction. Legs uncrossed. Padded footboard in place. Tape over blanket to secure lower legs.
[2021-11-17] MEDS: LACTATED RINGERS 1,000 ML 42 ML IV (08:27)
--- NOTE | 2021-11-17 08:52 | P.OP.PRE_ITS ---
Pre-operative Note COVID-19 COVID-19 status: Positive Result date/Date tested (Pos, Neg/Pending): 11/15/21 Criteria for continued procedure: Expected advancement of disease process, Possibility delay results in more complex future surgery or treatment, Continuing or worsening of significant or severe pain, Deterioration of the patient's condition or overall health and Delay expected to result in less- positive ultimate med/surg outcome Interval Note History & Physical reviewed/Exam performed by Physician: Yes Changes to H&P: No ASA Class (for procedural sedation): II
[2021-11-17] MEDS: CEFAZOLIN 2 GM/20 ML SYRINGE IV (09:12)
[2021-11-17] MEDS: BUPIVACAINE 0.5% (PF) VIAL 30 ML INJ (09:27)
[2021-11-17] MEDS: LIDOCAINE 1% 20 ML INJ (09:28)
[2021-11-17] MEDS: EPINEPHrine 1 MG/ML 0.15 MG INJ (09:29)
[2021-11-17] MEDS: ACETAMINOPHEN IV 1,000 MG/100 ML VIAL 400 MG IV (09:46)
--- NOTE | 2021-11-17 10:28 | PM.OP.1 ---
Operative Date/Time/Diagnoses Date of procedure: 11/17/21 Time of procedure: 10:30 Pre-op diagnosis: Symptomatic cholelithiasis Post-op diagnosis: same Procedure & Clinicians Procedure: Laparoscopic cholecystectomy Same procedure as scheduled: Yes Surgeon: Won Palma Anesthesia Type: General Operative Notes Findings: Gravid uterus, multiple small gallstones Procedure in detail: The patient was given preoperative antibiotic. The patient was brought to the operating room, placed on the table in the supine position. General endotracheal anesthesia was induced. The abdomen was prepped and draped. A time-out was performed. We made a 1 cm infraumbilical incision. We dissected down to the base of the umbilical stalk using cautery. We grasped the umbilical stalk with a Nicola clamp to elevate the abdominal wall. We scored the fascia in the midline with cautery 1 cm. We pierced the peritoneum with a Peon clamp. The William port was placed and the abdomen was insufflated to 12 mmHg. A 10 mm 30 degree laparoscopic was inserted. There was no evidence of any injury from the entry. The gravid uterus was visualized and was uninjured. Next, we placed 5 mm ports in the subxiphoid position and right upper quadrant at the midclavicular line and anterior axillary line. Patient was then positioned in reverse Trendelenburg and the table was tilted to the left. The gallbladder was grasped at the dome and retracted cephalad. There were some adhesions of mesenteric tissue to the gallbladder infundibulum which were carefully dissected with cautery to allow full retraction of the gallbladder. We then dissected the cystic structures with a combination of hook cautery and blunt dissection. We obtained a critical view. We placed clips on the cystic duct and artery and divided the cystic duct and artery sharply between the clips. The gallbladder was then dissected off the liver and placed in a specimen retrieval bag. We irrigated the right upper quadrant with 2 L of saline and all the aspirate returned clear. We then removed the 5 mm ports under direct vision we removed the William port. We then injected some local into the fascia and closed the fascia with 2 interrupted 0 Vicryl sutures. The skin incisions were closed with 4 Monocryl and Steri-Strips were applied. Band-Aids were applied over the Steri-Strips. EBL: 10 mL Specimen: Gallbladder Post-operative Condition: stable Disposition: PACU
--- NOTE | 2021-11-17 11:13 | SUR.PHASEII ---
Dior Medina RN from Center here. Heart tones check at 130
--- NOTE | 2021-11-17 11:39 | SUR.PHASEII ---
1138 Pt discharged to home in wheelchair after getting up indep, getting dressed and being steady on feet at bedside. Pt pain 5/10 and pt stating pain tolerable and declining all narcotics. Incentive spirometer teaching done and pt able to perform independently up to 2000ml. Discharged home with IS and instructions to use 10times every 1-2 hours while awake.
== END 2021-11-17 10:38 | disposition home or self-care (01) ==
PROVIDERS: PCP Registered Nurse Diabetes Educator; Referring Provider Surgery; Visit Provider Surgery
PROC: 0FT44ZZ Resection of Gallbladder, Percutaneous Endoscopic Approach (ICD-10-PCS; CPT 47562; principal; 2021-11-17 09:00)
DX: O99.612 Diseases of the digestive system complicating pregnancy, second trimester (principal); K80.20 Calculus of gallbladder without cholecystitis without obstruction; Z3A.19 19 weeks gestation of pregnancy; F17.210 Nicotine dependence, cigarettes, uncomplicated
CPT/HCPCS: 47562; J0131; J0171; J0330; J0690; J1100; J2405; J2704; J3010

== ENCOUNTER → 2021-11-21 11:20 | Outpatient (CLI) | payer OTHER, MEDICAID, SELFPAY ==
[2021-11-21 14:40] LABS: Add Manual Diff / Slide Review NO; Basophils Absolute Auto 0 /uL (0-100); Basophils Percent Auto 0.3 % (0-2); Eosinophils Absolute Auto 0 /uL (0-450); Eosinophils Percent Auto 0.3 % (2-4); Hematocrit 29.9 % (36-46); Hemoglobin 10.3 g/dL (12.0-16.0); Lymphocytes Absolute Auto 2200 /uL (1100-4500); Lymphocytes Percent Auto 22.3 % (25-40); Mean Corpuscular HGB Conc 34.3 % (30-36); Mean Corpuscular Hemoglobin 30.3 PG (26-34); Mean Corpuscular Volume 88.3 fL (80-100); Monocytes Absolute Auto 500 /uL (0-900); Monocytes Percent Auto 5.1 % (3-14); Neutrophils Absolute Auto 7000 /uL (1500-7000); Platelet Count 340 X10^3/uL (150-400); Red Blood Cell Count 3.39 X10^6/uL (4.0-5.2); Red Cell Distribution Width 12.7 % (11.6-14.8); White Blood Cell Count 9.7 X10^3/uL (4.5-11.0)
[2021-11-21 14:54] LABS: Alanine Aminotransferase 45 IU/L (<35); Albumin 3.6 g/dL (3.5-5.0); Albumin Globulin Ratio 1.2 (1.0-2.8); Alkaline Phosphatase 71 U/L (38-126); Aspartate Aminotransferase 23 IU/L (14-36); BUN Creatinine Ratio 16.3 (6-22); Bilirubin Total 0.3 mg/dL (0.2-1.3); Blood Urea Nitrogen 7 mg/dL (7-17); Calcium 8.9 mg/dL (8.4-10.2); Carbon Dioxide 24 mmol/L (22-32); Chloride 106 mmol/L (98-107); Estimated Glomerular Filt Rate > 60.0 mL/min (>60); Globulin 2.9 g/dL (1.7-4.1); Glucose 71 mg/dL (70-100); HEMOLYSIS < 15 (0-50); Sodium 136 mmol/L (137-145); Total Protein 6.5 g/dL (6.3-8.2)
== END ==
PROVIDERS: PCP Registered Nurse Diabetes Educator; Referring Provider Surgery; Visit Provider Surgery
DX: O26.612 Liver and biliary tract disorders in pregnancy, second trimester (principal); K80.20 Calculus of gallbladder without cholecystitis without obstruction
CPT/HCPCS: 36415; 80053; 85025

== ENCOUNTER → 2021-11-29 12:02 | Outpatient (CLI) | payer OTHER, MEDICAID, SELFPAY ==
--- NOTE | 2021-11-29 12:03 | DI.US.S_ITS ---
PROCEDURE: US OB >= 14 WEEKS FETUS INDICATIONS: ANATOMY OUTSIDE/PRIOR DATING DATA: Last menstrual period (LMP): Unknown. First dating scan (date): November 03, 2021. Estimated date of delivery (BIA) from first dating scan: March 31, 2022. TECHNIQUE: Real-time scanning was performed of the fetus, with image documentation and biometric measurements. COMPARISON: [facility], , OB >= 14 WEEKS FETUS, 11/13/2021, 12:20. FINDINGS: General: A single living intrauterine gestation is present. Presentation: Breech. Placenta: Placental position is anterior , without previa. Amniotic fluid index: 12.8 cm, normal range is 5-24 cm. Single deepest vertical pocket is 4.5 cm. heart rate: 153 beats per minute. Maternal cervical canal: 4.7 cm long. Normal lower limit is 2.5 cm. biometrics: Biparietal diameter: 5.5 cm Head circumference: 20.3 Abdominal circumference: 18.2 Femur length: 3.8 Clinically estimated gestational age: 22 weeks, 4 days Composite gestational age from present scan: 22 weeks, 5 days Estimated weight and percentile: 522 g +/-77 g; 47th percentile Anatomic survey: Neuro: Ventricles are non-dilated at less than 10 mm. Cisterna magna is normal at 3-11 mm. Cerebellum is normal in size and morphology. Nuchal skin fold: Normal at less than 6 mm between 14-21 weeks gestational age. Face: Nose and lips, facial profile are normal. Spine: No evidence for spina bifida. Heart: 4-chambered heart is present, with normal ventricular outflow tracts. Diaphragm: Diaphragm is intact. Stomach: Left-sided stomach is present. Kidneys: No hydronephrosis. Normal is less than 5 mm in 2nd trimester, less than 7 mm in 3rd trimester. Cord: 3-vessel cord has orthotopic insertion. Bladder: Normal in size. Extremities: All 4 extremities identified. IMPRESSION: Single live intrauterine gestation as detailed above. We strive to produce accurate, complete, and clear reports of imaging services. To assist us in improving patient care, this report was composed using standard report templates and voice recognition software. Therefore, it may contain abnormal punctuation, insertions and/or omissions. Occasional wrong-word or sound-alike substitutions may occur. Though we review the report and make efforts to correct it, we do recommend that the report be read carefully in proper context to recognize any text inaccuracies. Dictated by: Noel Schultz M.D. on 11/29/2021 at 13:11 Approved by: Noel Schultz M.D. on 11/29/2021 at 13:14
== END ==
PROVIDERS: PCP Registered Nurse Diabetes Educator; Referring Provider Obstetrics & Gynecology; Visit Provider Obstetrics & Gynecology
DX: Z36.89 Encounter for other specified antenatal screening (principal); Z3A.22 22 weeks gestation of pregnancy
CPT/HCPCS: 76811

== ENCOUNTER → 2021-12-28 11:00 | Outpatient (CLI) | payer OTHER, MEDICAID, SELFPAY ==
[2021-12-28 12:41] LABS: Hematocrit 28.9 % (36-46); Hemoglobin 9.9 g/dL (12.0-16.0)
[2021-12-28 13:12] LABS: GTT (PREG) 1 Hour PP 50gm Dose 129 mg/dL (76-139)
== END ==
PROVIDERS: PCP Registered Nurse Diabetes Educator; Referring Provider Obstetrics & Gynecology; Visit Provider Obstetrics & Gynecology
DX: Z34.82 Encounter for supervision of other normal pregnancy, second trimester (principal); Z3A.26 26 weeks gestation of pregnancy
CPT/HCPCS: 36415; 82950; 85014; 85018

== ENCOUNTER → 2022-03-11 10:01 | Outpatient (CLI) | payer OTHER, MEDICAID, SELFPAY ==
[2022-03-11 11:05] LABS: Add Manual Diff / Slide Review NO; Basophils Absolute Auto 100 /uL (0-100); Basophils Percent Auto 0.5 % (0-2); Eosinophils Absolute Auto 100 /uL (0-450); Eosinophils Percent Auto 0.9 % (2-4); Hematocrit 30.9 % (36-46); Hemoglobin 10.8 g/dL (12.0-16.0); Lymphocytes Absolute Auto 2800 /uL (1100-4500); Mean Corpuscular HGB Conc 34.9 % (30-36); Mean Corpuscular Volume 85.8 fL (80-100); Monocytes Absolute Auto 500 /uL (0-900); Monocytes Percent Auto 5.1 % (3-14); Neutrophils Absolute Auto 7000 /uL (1500-7000); Neutrophils Percent Auto 66.5 % (50-75); Platelet Count 368 X10^3/uL (150-400); Red Cell Distribution Width 14.2 % (11.6-14.8); White Blood Cell Count 10.5 X10^3/uL (4.5-11.0)
== END ==
PROVIDERS: PCP Registered Nurse Diabetes Educator; Referring Provider Obstetrics & Gynecology; Visit Provider Obstetrics & Gynecology
DX: D64.9 Anemia, unspecified (principal)
CPT/HCPCS: 36415; 85025

== ENCOUNTER → 2022-03-12 15:48 | Outpatient (CLI) | payer OTHER, MEDICAID, SELFPAY ==
[2022-03-13 13:12] LABS: Strep Grp B PCR NEG for Grp B Strep
== END ==
PROVIDERS: PCP Registered Nurse Diabetes Educator; Visit Provider Obstetrics & Gynecology
DX: Z34.83 Encounter for supervision of other normal pregnancy, third trimester (principal); Z3A.37 37 weeks gestation of pregnancy
CPT/HCPCS: 87653

== ENCOUNTER 2022-04-08 07:24 | Inpatient (IN) | payer OTHER, MEDICAID, SELFPAY ==
[2022-04-08] MEDS: LACTATED RINGERS 1,000 ML 100 ML IV ×2 (10:00→10:56)
[2022-04-08 10:06] LABS: Add Manual Diff / Slide Review NO; Basophils Absolute Auto 100 /uL (0-100); Basophils Percent Auto 0.4 % (0-2); Eosinophils Absolute Auto 0 /uL (0-450); Eosinophils Percent Auto 0.4 % (2-4); Lymphocytes Absolute Auto 2400 /uL (1100-4500); Lymphocytes Percent Auto 19.1 % (25-40); Mean Corpuscular HGB Conc 34.3 % (30-36); Mean Corpuscular Hemoglobin 29.2 PG (26-34); Mean Corpuscular Volume 85.3 fL (80-100); Monocytes Absolute Auto 700 /uL (0-900); Monocytes Percent Auto 5.3 % (3-14); Neutrophils Absolute Auto 9400 /uL (1500-7000); Neutrophils Percent Auto 74.8 % (50-75); Platelet Count 374 X10^3/uL (150-400); Red Blood Cell Count 3.75 X10^6/uL (4.0-5.2); Red Cell Distribution Width 14.9 % (11.6-14.8); White Blood Cell Count 12.6 X10^3/uL (4.5-11.0)
[2022-04-08] MEDS: ONDANSETRON 4 MG/2 ML INJ IV (10:14)
[2022-04-08 10:31] LABS: COVID19 -Nasal RAPID Negative (Negative)
[2022-04-08] MEDS: OXYTOCIN 10 UNIT/ML VIAL IM (12:15)
[2022-04-08] MEDS: miSOPROStoL 200 MCG TABLET 800 MCG PR (12:31)
[2022-04-08] MEDS: ACETAMINOPHEN 325 MG TABLET 650 MG PO ×2 (13:19→23:04)
[2022-04-08] MEDS: IBUPROFEN 600 MG TABLET PO ×2 (13:19→21:52)
--- NOTE | 2022-04-08 16:49 | PM.OBHP.1 ---
OB HPI Date/Time Date of admission: 04/08/22 Date Patient Seen: 04/08/22 Time Patient Seen: 09:30 History of Present Condition Chief complaint: vaginal bleeding : 2 Para: 1 Estimated Date of Delivery: 03/31/22 Estimated Gestational Age (weeks): 41wk1d Narrative: Christal Jacques is a 31 year old female with an BIA of 03/31/2022 set by an 18 week US (LMP unknown due to PCOS) who presents at 36amp6bcf EGA reporting noticing some blood when she wiped vaginally. No further bleeding noted up on arrival. Denies leakage of fluid. She was noted to be martinez every 5-6 minutes, but contractions felt mild to the patient. On exam her cervix was 3/80, which was a change from the office and she was kept for observation for labor. Over the past hour her contractions became uncomfortable and on repeat exam she had further cervical change to 4 cm. was complicated by symptomatic cholecystitis for which she underwent cholecystectomy 20 weeks. She also was COVID positive at the time of surgery. Had some mild symptoms of SOB. also complicated by late dating at 18 weeks. Patient has not had a menses in years with a diagnosis of PCOS. History of Present care: initiated at week # (18) and number of visits (10) Dating criteria: based on 2nd trimester US only Ultrasounds: normal mid trimester US Obstetrical complications: none Medical complications: other ( cholecystitis, underwent cholecystectomy. COVID positive @ 20 weeks.) Preadmission Labs Blood type: AB (+) positive -: Antibody screen: negative, GBS status: negative, HBsAG: negative, HIV: negative and RPR/VDLR: negative -: Chlamydia screen: not detected and Gonorrhea screen: not detected -: Rubella: immune and Varicella: immune HCAB: negative Quad screen: Normal 1 hr GTT: 129 Prior (ies) History: 2009 at 39 weeks Evaluation Evaluation Baseline heart rate: 145 Variability: Average (6-10) monitor accelerations: Present Monitor Decelerations: Episodic and Variable Contraction Frequency (minutes): 3 Uterine Contraction Intensity: Moderate Category of Tracing: Reactive Status: Category ll Dilation (cm): 4 Effacement (%): 85 station: -1 [facility] Medical History Depression Family history of ovarian cancer Healthy female Insomnia Irregular menstrual cycle Late menses Nightmares Patient desires Screening for cervical cancer Substance use disorder Family History Father Diabetes mellitus History of heart disease Hyperlipidemia Hypertension Mother Ovarian cancer Grandmother Diabetes mellitus Social History marital status: unmarried,single (has partner) number of children: 1 household members: significant other and children lives independently: Yes housing: house pets and animals: Yes (cats, guinea pig, chijaelahua - daughter to do litter box now) education level: college occupational status: employed current occupational exposures/hazards: No seatbelt use: always water heater temp set < 120 deg: Yes working smoke detector in home: Yes fire extinguisher in home: Yes carbon monox detector in home: Yes firearms in home: No do you feel safe at home: Yes Smoking Status: Current every day smoker quit status: considering quitting second hand exposure: No alcohol intake: former substance use type: former substance user and marijuana (occasionally) during the past year weight has: remained stable well-balanced diet: daily or most days daily servings fruits/ve-4 caffeine: Yes (going to now limit it to 200mg) Type(s) of exercise: irregular exercise Meds Home Medications and Allergies Home Medications Medication Instructions Recorded Confirmed Type prenat.vits,guevara,tha-wcar-rtjce 1 tab PO DAILY 11/08/21 04/08/22 History ferrous sulfate 325 mg (65 mg 325 mg PO DAILY anemia #30 tabs 11/29/21 04/08/22 Rx iron) tablet (FeroSul) ondansetron 4 mg disintegrating 4 mg PO Q6-8H PRN nausea and 01/29/22 04/08/22 Rx tablet vomiting #20 tabs Allergies Allergy/AdvReac Type Severity Reaction Status Date / Time doxycycline [DOXYCYCLINE] Allergy Intermediate Hives Verified 03/21/22 11:37 OB Exam HENMT Head: normal to inspection and normocephalic Resp Effort & Inspection: normal respiratory effort Cardio Rate: regular rate Extremities Lower extremity: Yes normal to inspection and edema Objective Labs Result Diagrams: 04/08/22 09:50 Labs: Laboratory Results - last 24 hr 04/08/22 04/08/22 04/08/22 09:40 09:50 09:50 WBC 12.6 H RBC 3.75 L Hgb 11.0 L Hct 32.0 L MCV 85.3 MCH 29.2 MCHC 34.3 RDW 14.9 H Plt Count 374 Neut % (Auto) 74.8 Lymph % (Auto) 19.1 L [place] % (Auto) 5.3 Eos % (Auto) 0.4 L Baso % (Auto) 0.4 Neut # (Auto) 9400 H Lymph # (Auto) 2400 [place] # (Auto) 700 Eos # (Auto) 0 Baso # (Auto) 100 SARS-CoV-2 (PCR) Negative Blood Type AB Positive Antibody Screen Negative Assessment and Plan Assessment and Plan Assessment and Plan narrative: 31 yo at 41wk1d EGA dated by an 18 week US admitted in labor. GBS negative. EFM Cat 1 on presentation, now Cat 2 due to rare minimal variable decel. Patient desires attempt natural childbirth, declines any medication at this time. Admit, place IV, CBC, blood bank tube to hold. Expectant care Time Spent with Patient Total time spent with greater than 50% in coordination of care (as documented) at patient's floor/unit and/or counseling patient:: less than 15 minutes
[2022-04-08] MEDS: OXYCODONE IR 5 MG TABLET PO (16:55)
--- NOTE | 2022-04-08 20:14 | P.PCNOB_ITS ---
Labor & Delivery Delivery date: 04/08/22 Intrapartal Events: Deceleration (after AROM at 9 cm, FHR 60-90 for 2-3 minutes, with recovery to 110-120. Pt completely dilated and had short time after) Cervical ripening method: none Induction method: none Delivery augmentation: rupture of membranes Delivery monitor: external FHT and external uterine Route of delivery: Episiotomy description: None L&D Laceration Description: None Estimated blood loss (mL): 400 Anesthesia Type: None Complications: none [place] Baby 1: gender: Male Presentation: vertex Position: Right Occiput Anterior Placenta delivery description: Spontaneous Cord Vessel Description: 3 Vessels score (1 min): 9 score (5 min): 9 weight: 8 lb 14 oz Narrative: She progressed to 9 cm with bulging membranes. Artificial rupture membranes was performed, thick meconium fluid noted. EFM Was category 2 but overall reassuring, only occasional mild variable deceleration. Short time after the artificial rupture membranes, FHR decreased to 60-90 for 2-3 minutes then increased back to 110s. On exam she was noted to be completely dilated, 2+ station. She was feeling a lot of pressure. respiratory therapy and doctor on-call for baby care was called for delivery Due to the thick meconium and now the severe deceleration. She began pushing, pushed over 2 contractions and had a spontaneous vaginal delivery over an intact perineum from the COLT position. No nuchal cord was present. Anterior followed by posterior shoulder were delivered without difficulty with the patient pushing, followed by the remainder of the body. A baby boy was delivered at 1200 noon. The baby cried spontaneously, after approximately 10 seconds. The baby appeared vigorous and was placed on the maternal abdomen. After 1 minute, cord was clamped and cut. The baby continued to be vigorous and did not need to be suctioned. Placenta delivered spontaneously approximately 15 minutes later. Uterine massage and IM Pitocin was given since her IV was lost just prior to her pushing. She had some light persistent bleeding. On examination she had no obstetrical lacerations. Bimanual examination revealed some clots at the cervix which were teased out. Initially her bleeding remained normal but approximately 5 minutes later she had a heavier gush blood again. Repeat bimanual examination revealed some clots at the cervix and in the lower uterine segment which were evacuated. The upper uterus was martinez down well. Exam with 1 finger higher into the uterine cavity revealed it to be clear, without any clots or membranes palpable. She was given 800 mcg misoprostol per rectum. Good hemostasis then continued. On inspection she had No obstetrical lacerations. Perineum, vaginal sidewalls and periurethral areas were intact. Cervix palpated to be intact. She did well and was left to recover in good condition. Plan for aftercare: Routine care
[2022-04-08 21:52] VITALS: TEMP 36.6
[2022-04-08] MEDS: LANOLIN OINT 7 GM 1 APPLIC TOP (21:53)
[2022-04-09 03:37] VITALS: TEMP 36.6
[2022-04-09] MEDS: IBUPROFEN 600 MG TABLET PO ×2 (03:37→09:42)
[2022-04-09 03:38] VITALS: TEMP 36.6
[2022-04-09] MEDS: OXYCODONE IR 5 MG TABLET PO (03:38)
[2022-04-09] MEDS: ACETAMINOPHEN 325 MG TABLET 650 MG PO ×2 (05:36→11:39)
[2022-04-09 06:26] LABS: Add Manual Diff / Slide Review NO; Basophils Absolute Auto 0 /uL (0-100); Basophils Percent Auto 0.3 % (0-2); Eosinophils Absolute Auto 100 /uL (0-450); Eosinophils Percent Auto 0.4 % (2-4); Hemoglobin 7.9 g/dL (12.0-16.0); Lymphocytes Absolute Auto 3700 /uL (1100-4500); Mean Corpuscular HGB Conc 34.3 % (30-36); Mean Corpuscular Hemoglobin 29.4 PG (26-34); Mean Corpuscular Volume 85.9 fL (80-100); Monocytes Absolute Auto 800 /uL (0-900); Monocytes Percent Auto 5.9 % (3-14); Neutrophils Absolute Auto 8600 /uL (1500-7000); Neutrophils Percent Auto 65.4 % (50-75); Platelet Count 322 X10^3/uL (150-400); Red Blood Cell Count 2.68 X10^6/uL (4.0-5.2); Red Cell Distribution Width 14.7 % (11.6-14.8); White Blood Cell Count 13.2 X10^3/uL (4.5-11.0)
[2022-04-09 08:02] VITALS: BP 114/64; PULSE 92; RESP 16; TEMP 36.4
[2022-04-09] MEDS: DOCUSATE 100 MG CAPSULE PO (09:42)
[2022-04-09] MEDS: LANOLIN OINT 7 GM 1 APPLIC TOP (11:39)
== END 2022-04-09 12:20 | disposition home or self-care (01) | DRG 560 ==
PROVIDERS: Admitting Provider Obstetrics & Gynecology; PCP Registered Nurse Diabetes Educator; Referring Provider Obstetrics & Gynecology; Visit Provider Obstetrics & Gynecology
DX: O67.9 Intrapartum hemorrhage, unspecified (principal); O48.0 Post-term pregnancy; Z3A.41 41 weeks gestation of pregnancy; Z37.0 Single live birth; O76 Abnormality in fetal heart rate and rhythm complicating labor and delivery; O77.0 Labor and delivery complicated by meconium in amniotic fluid; Z20.822 Contact with and (suspected) exposure to COVID-19
CPT/HCPCS: 36415; 59050; 59400; 59409; 85025; 86850; 86900; 86901; 87635; C9803; G0379; J2405; J2590; S0191

== ENCOUNTER 2023-05-19 16:03 | Emergency (ER) | payer OTHER, MEDICAID, SELFPAY ==
[2023-05-19] VITALS (99 sets, daily range): BP systolic 82–116; BP diastolic 53–74; PULSE 69–99; RESP 10–29; TEMP 36.5; O2SAT 95–100; BMI 25.7
[2023-05-19] MEDS: SODIUM CHLORIDE 0.9% 1,000 ML 1000 ML IV (16:15)
--- NOTE | 2023-05-19 16:27 | ED_ITS ---
HPI - Overdose <Janae Lo MD - Last Filed: 05/19/23 19:27> General Chief Complaint: Psychiatric Symptoms Stated Complaint: overdose/ SI Time Seen by Provider: 05/19/23 16:05 Source: patient Mode of arrival: EMS History of Present Illness HPI Narrative: 32-year-old female with history of depression, anxiety, substance use disorder presents by EMS from home for suicidal ideation and possible overdose. Patient took her usual home medications this morning, however this afternoon she did drink an alcoholic beverage and instead of her usual 100 mg of trazodone she took 400 mg of trazodone in order to kill herself. EMS reported that they are vital signs were significant for bradycardia and hypotension, however by the time the patient arrived to the emergency department she was no longer hypotensive and she was no longer bradycardic. Patient was awake, sleepy, but answering questions appropriately. Related Data Home Medications Medication Instructions Recorded Confirmed levonorgestrel 21 mcg/24 hours (8 intrauterine ONCE 05/07/23 05/07/23 yrs) 52 mg intrauterine device (Mirena) Previous Rx's Medication Instructions Recorded hydroxyzine pamoate 50 mg capsule 50 mg PO QID #120 caps 05/07/23 sertraline 50 mg tablet 50 mg PO DAILY #30 tabs 05/07/23 trazodone 50 mg tablet 100 mg PO BEDTIME PRN sleep #60 05/07/23 tabs Allergies Allergy/AdvReac Type Severity Reaction Status Date / Time doxycycline [DOXYCYCLINE] Allergy Intermediate Hives Verified 05/07/23 14:44 Review of Systems <Janae Lo MD - Last Filed: 05/19/23 19:27> Review of Systems Narrative: CONSTITUTIONAL- Denies: fever, chills, fatigue HEENT- Denies: sore throat, nosebleed, vision changes RESPIRATORY- Denies: shortness of breath, cough, wheezing CARDIAC- Denies: chest pain, edema, orthopnea GI- Denies: abdominal pain, nausea, vomiting, constipation, diarrhea - Denies: frequency, dysuria, hematuria, flank pain MSK- Denies: extremity pain, extremity swelling, joint pain, joint swelling SKIN- Denies: rash, itching, burn, swelling NEUROLOGICAL- Denies: headache, numbness, weakness, dizziness PSYCHIATRIC-reports: Depression, suicidal ideation Denies: anxiety, homicidal ideation Patient History <Janae Lo MD - Last Filed: 05/19/23 19:27> Medical History Depression Family history of ovarian cancer Healthy female Insomnia Irregular menstrual cycle Late menses Nightmares Patient desires Screening for cervical cancer Substance use disorder Family History Father Diabetes mellitus History of heart disease Hyperlipidemia Hypertension Mother Ovarian cancer Grandmother Diabetes mellitus Social History marital status: unmarried,single number of children: 1 household members: significant other and children lives independently: Yes housing: house pets and animals: Yes (cats, guinea pig, chihuahua - daughter to do litter box now) education level: college occupational status: employed current occupational exposures/hazards: No seatbelt use: always water heater temp set < 120 deg: Yes working smoke detector in home: Yes fire extinguisher in home: Yes carbon monox detector in home: Yes firearms in home: No do you feel safe at home: Yes Smoking Status: Current some day smoker quit status: considering quitting second hand exposure: No alcohol intake: former substance use type: former substance user and marijuana during the past year weight has: remained stable well-balanced diet: daily or most days daily servings fruits/ve-4 caffeine: Yes (going to now limit it to 200mg) Type(s) of exercise: irregular exercise Smoking Status: Current some day smoker alcohol intake frequency: a few times a week Alcohol type: beer and wine Substance Use Type: former substance user, marijuana and amphetamines Exam <Janae Lo MD - Last Filed: 05/19/23 19:27> Initial Vital Signs Initial Vital Signs: Vital Signs Temperature 97.7 F 05/19/23 16:05 Pulse Rate 84 05/19/23 16:05 Respiratory Rate 10 L 05/19/23 16:05 Blood Pressure 82/56 L 05/19/23 16:05 Pulse Oximetry 99 05/19/23 16:05 Oxygen Delivery Method Room Air 05/19/23 16:05 Const: Well-nourished, Well-developed, appears stated age Eyes: PERRL, EOMI, conjunctiva normal ENT: Atraumatic, dentition normal, mucous membranes moist Cardiac: regular rate, regular rhythm RESP: unlabored, clear bilaterally, no wheezing GI: Atraumatic, soft, nontender, nondistended, no rebound, no guarding MSK: Atraumatic, full range of motion, pulses equal Skin: Warm, Dry, intact, no rashes Neuro: AO x3, CN II-XII grossly intact, moves all extremities Psych: flat affect, depressed mood, suicidal ideation <Radha Soares DO - Last Filed: 05/21/23 01:50> Initial Vital Signs Initial Vital Signs: Vital Signs Temperature 97.7 F 05/19/23 16:05 Pulse Rate 84 05/19/23 16:05 Respiratory Rate 10 L 05/19/23 16:05 Blood Pressure 82/56 L 05/19/23 16:05 Pulse Oximetry 99 05/19/23 16:05 Oxygen Delivery Method Room Air 05/19/23 16:05 <Janae Rodriguez DO - Last Filed: 05/20/23 12:00> Initial Vital Signs Initial Vital Signs: Vital Signs Temperature 97.7 F 05/19/23 16:05 Pulse Rate 84 05/19/23 16:05 Respiratory Rate 10 L 05/19/23 16:05 Blood Pressure 82/56 L 05/19/23 16:05 Pulse Oximetry 99 05/19/23 16:05 Oxygen Delivery Method Room Air 05/19/23 16:05 Course <Janae Lo MD - Last Filed: 05/19/23 19:27> Course Course Narrative: Nontoxic patient with mild overdose of trazodone. Protecting airway, no acute distress, vital signs normal. Will obtain medical clearance laboratory work Orders Ordered: Discontinued Medications Sodium Chloride (Normal Saline 0.9%) 1,000 mls @ 1,000 mls/hr IV BOLUS ONE Stop: 05/19/23 17:14 Last Infusion: 05/19/23 17:50 Dose: 0 mls/hr Documented By: Admin: 05/19/23 16:15 Dose: 1,000 mls/hr Documented By: HARRIS Sodium Chloride (Normal Saline 0.9%) 1,000 mls @ 1,000 mls/hr IV BOLUS ONE Stop: 05/20/23 09:04 Last Infusion: 05/20/23 09:11 Dose: 0 mls/hr Documented By: Admin: 05/20/23 08:10 Dose: 1,000 mls/hr Documented By: JONNY Reevaluation(s) Reevaluation #1: Urinalysis significant for amphetamines other laboratory work unremarkable. Patient is awake, alert, no change in vital signs. Medically cleared for psychiatric evaluation. Vital Signs Vital signs: Vital Signs - 8 hr 05/20/23 07:24 05/20/23 07:25 05/20/23 07:25 Temperature Pulse Rate 85 101 H Blood Pressure 98/56 L Pulse Oximetry 93 99 05/20/23 07:26 05/20/23 07:26 05/20/23 07:30 Temperature 98.2 F Pulse Rate 89 Blood Pressure 95/53 L 96/52 L Pulse Oximetry 98 05/20/23 07:30 05/20/23 07:35 05/20/23 07:40 Temperature Pulse Rate 79 83 73 Blood Pressure Pulse Oximetry 98 96 97 05/20/23 07:45 05/20/23 07:50 05/20/23 07:55 Temperature Pulse Rate 111 H 97 H 77 Blood Pressure Pulse Oximetry 99 98 98 05/20/23 08:00 05/20/23 08:00 05/20/23 08:05 Temperature Pulse Rate 79 78 Blood Pressure 94/55 L Pulse Oximetry 98 98 05/20/23 08:10 05/20/23 08:15 05/20/23 08:20 Temperature Pulse Rate 84 90 87 Blood Pressure Pulse Oximetry 99 98 98 05/20/23 08:25 05/20/23 08:30 05/20/23 08:30 Temperature Pulse Rate 88 89 Blood Pressure 95/53 L Pulse Oximetry 98 97 05/20/23 08:35 05/20/23 08:40 05/20/23 08:51 Temperature Pulse Rate 89 86 107 H Blood Pressure Pulse Oximetry 99 98 98 05/20/23 08:52 05/20/23 08:52 05/20/23 08:55 Temperature Pulse Rate 98 H 79 Blood Pressure 100/66 Pulse Oximetry 100 99 05/20/23 09:00 05/20/23 09:00 05/20/23 09:05 Temperature Pulse Rate 81 83 Blood Pressure 102/57 L Pulse Oximetry 99 98 05/20/23 09:10 05/20/23 09:15 05/20/23 09:20 Temperature Pulse Rate 77 79 79 Blood Pressure Pulse Oximetry 98 98 97 05/20/23 09:25 05/20/23 09:30 05/20/23 09:30 Temperature Pulse Rate 81 83 Blood Pressure 95/49 L Pulse Oximetry 97 97 05/20/23 09:35 05/20/23 09:40 05/20/23 09:45 Temperature Pulse Rate 87 86 86 Blood Pressure Pulse Oximetry 96 96 95 05/20/23 09:50 05/20/23 09:55 05/20/23 10:00 Temperature Pulse Rate 86 86 Blood Pressure 95/44 L Pulse Oximetry 96 95 05/20/23 10:00 05/20/23 10:05 05/20/23 10:10 Temperature Pulse Rate 83 81 77 Blood Pressure Pulse Oximetry 95 96 97 05/20/23 10:15 05/20/23 10:20 05/20/23 10:21 Temperature Pulse Rate 76 78 Blood Pressure 111/64 Pulse Oximetry 97 97 05/20/23 10:21 Temperature Pulse Rate 99 H Blood Pressure Pulse Oximetry 97 <Radha Soares, DO - Last Filed: 05/21/23 01:50> Orders Ordered: Discontinued Medications Sodium Chloride (Normal Saline 0.9%) 1,000 mls @ 1,000 mls/hr IV BOLUS ONE Stop: 05/19/23 17:14 Last Infusion: 05/19/23 17:50 Dose: 0 mls/hr Documented By: Admin: 05/19/23 16:15 Dose: 1,000 mls/hr Documented By: HARRIS Sodium Chloride (Normal Saline 0.9%) 1,000 mls @ 1,000 mls/hr IV BOLUS ONE Stop: 05/20/23 09:04 Last Infusion: 05/20/23 09:11 Dose: 0 mls/hr Documented By: Admin: 05/20/23 08:10 Dose: 1,000 mls/hr Documented By: JONNY Vital Signs Vital signs: Vital Signs - 8 hr 05/20/23 07:24 05/20/23 07:25 05/20/23 07:25 Temperature Pulse Rate 85 101 H Blood Pressure 98/56 L Pulse Oximetry 93 99 05/20/23 07:26 05/20/23 07:26 05/20/23 07:30 Temperature 98.2 F Pulse Rate 89 Blood Pressure 95/53 L 96/52 L Pulse Oximetry 98 05/20/23 07:30 05/20/23 07:35 05/20/23 07:40 Temperature Pulse Rate 79 83 73 Blood Pressure Pulse Oximetry 98 96 97 05/20/23 07:45 05/20/23 07:50 05/20/23 07:55 Temperature Pulse Rate 111 H 97 H 77 Blood Pressure Pulse Oximetry 99 98 98 05/20/23 08:00 05/20/23 08:00 05/20/23 08:05 Temperature Pulse Rate 79 78 Blood Pressure 94/55 L Pulse Oximetry 98 98 05/20/23 08:10 05/20/23 08:15 05/20/23 08:20 Temperature Pulse Rate 84 90 87 Blood Pressure Pulse Oximetry 99 98 98 05/20/23 08:25 05/20/23 08:30 05/20/23 08:30 Temperature Pulse Rate 88 89 Blood Pressure 95/53 L Pulse Oximetry 98 97 05/20/23 08:35 05/20/23 08:40 05/20/23 08:51 Temperature Pulse Rate 89 86 107 H Blood Pressure Pulse Oximetry 99 98 98 05/20/23 08:52 05/20/23 08:52 05/20/23 08:55 Temperature Pulse Rate 98 H 79 Blood Pressure 100/66 Pulse Oximetry 100 99 05/20/23 09:00 05/20/23 09:00 05/20/23 09:05 Temperature Pulse Rate 81 83 Blood Pressure 102/57 L Pulse Oximetry 99 98 05/20/23 09:10 05/20/23 09:15 05/20/23 09:20 Temperature Pulse Rate 77 79 79 Blood Pressure Pulse Oximetry 98 98 97 05/20/23 09:25 05/20/23 09:30 05/20/23 09:30 Temperature Pulse Rate 81 83 Blood Pressure 95/49 L Pulse Oximetry 97 97 05/20/23 09:35 05/20/23 09:40 05/20/23 09:45 Temperature Pulse Rate 87 86 86 Blood Pressure Pulse Oximetry 96 96 95 05/20/23 09:50 05/20/23 09:55 05/20/23 10:00 Temperature Pulse Rate 86 86 Blood Pressure 95/44 L Pulse Oximetry 96 95 05/20/23 10:00 05/20/23 10:05 05/20/23 10:10 Temperature Pulse Rate 83 81 77 Blood Pressure Pulse Oximetry 95 96 97 05/20/23 10:15 05/20/23 10:20 05/20/23 10:21 Temperature Pulse Rate 76 78 Blood Pressure 111/64 Pulse Oximetry 97 97 05/20/23 10:21 Temperature Pulse Rate 99 H Blood Pressure Pulse Oximetry 97 <Janae Rodriguez, - Last Filed: 05/20/23 12:00> Orders Ordered: Discontinued Medications Sodium Chloride (Normal Saline 0.9%) 1,000 mls @ 1,000 mls/hr IV BOLUS ONE Stop: 05/19/23 17:14 Last Infusion: 05/19/23 17:50 Dose: 0 mls/hr Documented By: Admin: 05/19/23 16:15 Dose: 1,000 mls/hr Documented By: HARRIS Sodium Chloride (Normal Saline 0.9%) 1,000 mls @ 1,000 mls/hr IV BOLUS ONE Stop: 05/20/23 09:04 Last Infusion: 05/20/23 09:11 Dose: 0 mls/hr Documented By: Admin: 05/20/23 08:10 Dose: 1,000 mls/hr Documented By: JONNY Vital Signs Vital signs: Vital Signs - 8 hr 05/20/23 07:24 05/20/23 07:25 05/20/23 07:25 Temperature Pulse Rate 85 101 H Blood Pressure 98/56 L Pulse Oximetry 93 99 05/20/23 07:26 05/20/23 07:26 05/20/23 07:30 Temperature 98.2 F Pulse Rate 89 Blood Pressure 95/53 L 96/52 L Pulse Oximetry 98 05/20/23 07:30 05/20/23 07:35 05/20/23 07:40 Temperature Pulse Rate 79 83 73 Blood Pressure Pulse Oximetry 98 96 97 05/20/23 07:45 05/20/23 07:50 05/20/23 07:55 Temperature Pulse Rate 111 H 97 H 77 Blood Pressure Pulse Oximetry 99 98 98 05/20/23 08:00 05/20/23 08:00 05/20/23 08:05 Temperature Pulse Rate 79 78 Blood Pressure 94/55 L Pulse Oximetry 98 98 05/20/23 08:10 05/20/23 08:15 05/20/23 08:20 Temperature Pulse Rate 84 90 87 Blood Pressure Pulse Oximetry 99 98 98 05/20/23 08:25 05/20/23 08:30 05/20/23 08:30 Temperature Pulse Rate 88 89 Blood Pressure 95/53 L Pulse Oximetry 98 97 05/20/23 08:35 05/20/23 08:40 05/20/23 08:51 Temperature Pulse Rate 89 86 107 H Blood Pressure Pulse Oximetry 99 98 98 05/20/23 08:52 05/20/23 08:52 05/20/23 08:55 Temperature Pulse Rate 98 H 79 Blood Pressure 100/66 Pulse Oximetry 100 99 05/20/23 09:00 05/20/23 09:00 05/20/23 09:05 Temperature Pulse Rate 81 83 Blood Pressure 102/57 L Pulse Oximetry 99 98 05/20/23 09:10 05/20/23 09:15 05/20/23 09:20 Temperature Pulse Rate 77 79 79 Blood Pressure Pulse Oximetry 98 98 97 05/20/23 09:25 05/20/23 09:30 05/20/23 09:30 Temperature Pulse Rate 81 83 Blood Pressure 95/49 L Pulse Oximetry 97 97 05/20/23 09:35 05/20/23 09:40 05/20/23 09:45 Temperature Pulse Rate 87 86 86 Blood Pressure Pulse Oximetry 96 96 95 05/20/23 09:50 05/20/23 09:55 05/20/23 10:00 Temperature Pulse Rate 86 86 Blood Pressure 95/44 L Pulse Oximetry 96 95 05/20/23 10:00 05/20/23 10:05 05/20/23 10:10 Temperature Pulse Rate 83 81 77 Blood Pressure Pulse Oximetry 95 96 97 05/20/23 10:15 05/20/23 10:20 05/20/23 10:21 Temperature Pulse Rate 76 78 Blood Pressure 111/64 Pulse Oximetry 97 97 05/20/23 10:21 Temperature Pulse Rate 99 H Blood Pressure Pulse Oximetry 97 MDM - Overdose <Janae Lo MD - Last Filed: 05/19/23 19:27> Differential Diagnosis Differential diagnosis: Likely cocaine intoxication, poisoning by opiate or related narcotic, drug overdose and accidental drug ingestion Lab Data 05/19/23 16:33 05/19/23 16:33 Labs: Lab Results 05/19/23 05/19/23 05/19/23 Range/Units 16:20 16:33 16:33 WBC 11.9 H (4.5-11.0) X10^3/uL RBC 4.18 (4.0-5.2) X10^6/uL Hgb 12.4 (12.0-16.0) g/dL Hct 35.9 L (36-46) % MCV 85.8 (80-100) fL MCH 29.7 (26-34) PG MCHC 34.6 (30-36) % RDW 12.9 (11.6-14.8) % Plt Count 458 H (150-400) X10^3/uL Neut % (Auto) 65.8 (50-75) % Lymph % (Auto) 26.0 (25-40) % Baker % (Auto) 6.7 (3-14) % Eos % (Auto) 0.9 L (2-4) % Baso % (Auto) 0.6 (0-2) % Neut # (Auto) 7800 H (2487-2052) /uL Lymph # (Auto) 3100 (9537-6289) /uL Baker # (Auto) 800 (0-900) /uL Eos # (Auto) 100 (0-450) /uL Baso # (Auto) 100 (0-100) /uL Sodium 136 L (137-145) mmol/L Potassium 3.4 (3.4-5.1) mmol/L Chloride 102 (98-107) mmol/L Carbon Dioxide 23 (22-32) mmol/L BUN 8 (7-17) mg/dL Creatinine 0.57 (0.52-1.04) mg/dL Estimated GFR > 60 (>60) mL/min BUN/Creatinine Ratio 14.0 (6-22) Glucose 101 H (70-100) mg/dL Calcium 8.7 (8.4-10.2) mg/dL Total Bilirubin 0.5 (0.2-1.3) mg/dL AST 21 (14-36) IU/L ALT 18 (<35) IU/L Alkaline Phosphatase 78 (38-126) U/L Total Protein 7.2 (6.3-8.2) g/dL Albumin 4.2 (3.5-5.0) g/dL Globulin 3.0 (1.7-4.1) g/dL Albumin/Globulin Ratio 1.4 (1.0-2.8) Urine Test (Negative) Salicylates < 1.0 (<20) mg/dL U Opiates 300ng/mL cut (Negative) Ur Oxycodone Screen (Negative) Urine Methadone Screen (Negative) Acetaminophen < 10 (10-30) ug/mL Ur Barbiturates Screen (Negative) U Tricyclic Antidepress (Negative) Ur Phencyclidine Scrn (Negative) Ur Amphetamines Screen (Negative) U Methamphetamines Scrn (Negative) Ur MDMA Scrn (Ecstasy) (Negative) U Benzodiazepines Scrn (Negative) Urine Cocaine Screen (Negative) U Marijuana (THC) Screen (Negative) Ethyl Alcohol < 10 ( - 10) mg/dL SARS-CoV-2 (PCR) Negative (Negative) 05/19/23 05/19/23 Range/Units 17:45 17:47 WBC (4.5-11.0) X10^3/uL RBC (4.0-5.2) X10^6/uL Hgb (12.0-16.0) g/dL Hct (36-46) % MCV (80-100) fL MCH (26-34) PG MCHC (30-36) % RDW (11.6-14.8) % Plt Count (150-400) X10^3/uL Neut % (Auto) (50-75) % Lymph % (Auto) (25-40) % Baker % (Auto) (3-14) % Eos % (Auto) (2-4) % Baso % (Auto) (0-2) % Neut # (Auto) (8997-7644) /uL Lymph # (Auto) (9119-2985) /uL Baker # (Auto) (0-900) /uL Eos # (Auto) (0-450) /uL Baso # (Auto) (0-100) /uL Sodium (137-145) mmol/L Potassium (3.4-5.1) mmol/L Chloride (98-107) mmol/L Carbon Dioxide (22-32) mmol/L BUN (7-17) mg/dL Creatinine (0.52-1.04) mg/dL Estimated GFR (>60) mL/min BUN/Creatinine Ratio (6-22) Glucose (70-100) mg/dL Calcium (8.4-10.2) mg/dL Total Bilirubin (0.2-1.3) mg/dL AST (14-36) IU/L ALT (<35) IU/L Alkaline Phosphatase (38-126) U/L Total Protein (6.3-8.2) g/dL Albumin (3.5-5.0) g/dL Globulin (1.7-4.1) g/dL Albumin/Globulin Ratio (1.0-2.8) Urine Test Negative (Negative) Salicylates (<20) mg/dL U Opiates 300ng/mL cut Negative (Negative) Ur Oxycodone Screen Negative (Negative) Urine Methadone Screen Negative (Negative) Acetaminophen (10-30) ug/mL Ur Barbiturates Screen Negative (Negative) U Tricyclic Antidepress Negative (Negative) Ur Phencyclidine Scrn Negative (Negative) Ur Amphetamines Screen Positive H (Negative) U Methamphetamines Scrn Positive H (Negative) Ur MDMA Scrn (Ecstasy) Negative (Negative) U Benzodiazepines Scrn Negative (Negative) Urine Cocaine Screen Negative (Negative) U Marijuana (THC) Screen Positive H (Negative) Ethyl Alcohol ( - 10) mg/dL SARS-CoV-2 (PCR) (Negative) <Radha Soares, DO - Last Filed: 05/21/23 01:50> Lab Data Labs: Lab Results 05/19/23 05/19/23 05/19/23 Range/Units 16:20 16:33 16:33 WBC 11.9 H (4.5-11.0) X10^3/uL RBC 4.18 (4.0-5.2) X10^6/uL Hgb 12.4 (12.0-16.0) g/dL Hct 35.9 L (36-46) % MCV 85.8 (80-100) fL MCH 29.7 (26-34) PG MCHC 34.6 (30-36) % RDW 12.9 (11.6-14.8) % Plt Count 458 H (150-400) X10^3/uL Neut % (Auto) 65.8 (50-75) % Lymph % (Auto) 26.0 (25-40) % Baker % (Auto) 6.7 (3-14) % Eos % (Auto) 0.9 L (2-4) % Baso % (Auto) 0.6 (0-2) % Neut # (Auto) 7800 H (7192-0169) /uL Lymph # (Auto) 3100 (1059-3377) /uL Baker # (Auto) 800 (0-900) /uL Eos # (Auto) 100 (0-450) /uL Baso # (Auto) 100 (0-100) /uL Sodium 136 L (137-145) mmol/L Potassium 3.4 (3.4-5.1) mmol/L Chloride 102 (98-107) mmol/L Carbon Dioxide 23 (22-32) mmol/L BUN 8 (7-17) mg/dL Creatinine 0.57 (0.52-1.04) mg/dL Estimated GFR > 60 (>60) mL/min BUN/Creatinine Ratio 14.0 (6-22) Glucose 101 H (70-100) mg/dL Calcium 8.7 (8.4-10.2) mg/dL Total Bilirubin 0.5 (0.2-1.3) mg/dL AST 21 (14-36) IU/L ALT 18 (<35) IU/L Alkaline Phosphatase 78 (38-126) U/L Total Protein 7.2 (6.3-8.2) g/dL Albumin 4.2 (3.5-5.0) g/dL Globulin 3.0 (1.7-4.1) g/dL Albumin/Globulin Ratio 1.4 (1.0-2.8) Urine Test (Negative) Salicylates < 1.0 (<20) mg/dL U Opiates 300ng/mL cut (Negative) Ur Oxycodone Screen (Negative) Urine Methadone Screen (Negative) Acetaminophen < 10 (10-30) ug/mL Ur Barbiturates Screen (Negative) U Tricyclic Antidepress (Negative) Ur Phencyclidine Scrn (Negative) Ur Amphetamines Screen (Negative) U Methamphetamines Scrn (Negative) Ur MDMA Scrn (Ecstasy) (Negative) U Benzodiazepines Scrn (Negative) Urine Cocaine Screen (Negative) U Marijuana (THC) Screen (Negative) Ethyl Alcohol < 10 ( - 10) mg/dL SARS-CoV-2 (PCR) Negative (Negative) 05/19/23 05/19/23 Range/Units 17:45 17:47 WBC (4.5-11.0) X10^3/uL RBC (4.0-5.2) X10^6/uL Hgb (12.0-16.0) g/dL Hct (36-46) % MCV (80-100) fL MCH (26-34) PG MCHC (30-36) % RDW (11.6-14.8) % Plt Count (150-400) X10^3/uL Neut % (Auto) (50-75) % Lymph % (Auto) (25-40) % Baker % (Auto) (3-14) % Eos % (Auto) (2-4) % Baso % (Auto) (0-2) % Neut # (Auto) (2270-3762) /uL Lymph # (Auto) (9499-4192) /uL Baker # (Auto) (0-900) /uL Eos # (Auto) (0-450) /uL Baso # (Auto) (0-100) /uL Sodium (137-145) mmol/L Potassium (3.4-5.1) mmol/L Chloride (98-107) mmol/L Carbon Dioxide (22-32) mmol/L BUN (7-17) mg/dL Creatinine (0.52-1.04) mg/dL Estimated GFR (>60) mL/min BUN/Creatinine Ratio (6-22) Glucose (70-100) mg/dL Calcium (8.4-10.2) mg/dL Total Bilirubin (0.2-1.3) mg/dL AST (14-36) IU/L ALT (<35) IU/L Alkaline Phosphatase (38-126) U/L Total Protein (6.3-8.2) g/dL Albumin (3.5-5.0) g/dL Globulin (1.7-4.1) g/dL Albumin/Globulin Ratio (1.0-2.8) Urine Test Negative (Negative) Salicylates (<20) mg/dL U Opiates 300ng/mL cut Negative (Negative) Ur Oxycodone Screen Negative (Negative) Urine Methadone Screen Negative (Negative) Acetaminophen (10-30) ug/mL Ur Barbiturates Screen Negative (Negative) U Tricyclic Antidepress Negative (Negative) Ur Phencyclidine Scrn Negative (Negative) Ur Amphetamines Screen Positive H (Negative) U Methamphetamines Scrn Positive H (Negative) Ur MDMA Scrn (Ecstasy) Negative (Negative) U Benzodiazepines Scrn Negative (Negative) Urine Cocaine Screen Negative (Negative) U Marijuana (THC) Screen Positive H (Negative) Ethyl Alcohol ( - 10) mg/dL SARS-CoV-2 (PCR) (Negative) MDM Narrative Medical decision making narrative: Patient signed out to me by Dr. Lo. No issues overnight anticipate transport in morning. Patient signed out to Dr. Rodriguez <Janae Rodriguez, DO - Last Filed: 05/20/23 12:00> Lab Data Labs: Lab Results 05/19/23 05/19/23 05/19/23 Range/Units 16:20 16:33 16:33 WBC 11.9 H (4.5-11.0) X10^3/uL RBC 4.18 (4.0-5.2) X10^6/uL Hgb 12.4 (12.0-16.0) g/dL Hct 35.9 L (36-46) % MCV 85.8 (80-100) fL MCH 29.7 (26-34) PG MCHC 34.6 (30-36) % RDW 12.9 (11.6-14.8) % Plt Count 458 H (150-400) X10^3/uL Neut % (Auto) 65.8 (50-75) % Lymph % (Auto) 26.0 (25-40) % Baker % (Auto) 6.7 (3-14) % Eos % (Auto) 0.9 L (2-4) % Baso % (Auto) 0.6 (0-2) % Neut # (Auto) 7800 H (2875-4036) /uL Lymph # (Auto) 3100 (3860-0448) /uL Baker # (Auto) 800 (0-900) /uL Eos # (Auto) 100 (0-450) /uL Baso # (Auto) 100 (0-100) /uL Sodium 136 L (137-145) mmol/L Potassium 3.4 (3.4-5.1) mmol/L Chloride 102 (98-107) mmol/L Carbon Dioxide 23 (22-32) mmol/L BUN 8 (7-17) mg/dL Creatinine 0.57 (0.52-1.04) mg/dL Estimated GFR > 60 (>60) mL/min BUN/Creatinine Ratio 14.0 (6-22) Glucose 101 H (70-100) mg/dL Calcium 8.7 (8.4-10.2) mg/dL Total Bilirubin 0.5 (0.2-1.3) mg/dL AST 21 (14-36) IU/L ALT 18 (<35) IU/L Alkaline Phosphatase 78 (38-126) U/L Total Protein 7.2 (6.3-8.2) g/dL Albumin 4.2 (3.5-5.0) g/dL Globulin 3.0 (1.7-4.1) g/dL Albumin/Globulin Ratio 1.4 (1.0-2.8) Urine Test (Negative) Salicylates < 1.0 (<20) mg/dL U Opiates 300ng/mL cut (Negative) Ur Oxycodone Screen (Negative) Urine Methadone Screen (Negative) Acetaminophen < 10 (10-30) ug/mL Ur Barbiturates Screen (Negative) U Tricyclic Antidepress (Negative) Ur Phencyclidine Scrn (Negative) Ur Amphetamines Screen (Negative) U Methamphetamines Scrn (Negative) Ur MDMA Scrn (Ecstasy) (Negative) U Benzodiazepines Scrn (Negative) Urine Cocaine Screen (Negative) U Marijuana (THC) Screen (Negative) Ethyl Alcohol < 10 ( - 10) mg/dL SARS-CoV-2 (PCR) Negative (Negative) 05/19/23 05/19/23 Range/Units 17:45 17:47 WBC (4.5-11.0) X10^3/uL RBC (4.0-5.2) X10^6/uL Hgb (12.0-16.0) g/dL Hct (36-46) % MCV (80-100) fL MCH (26-34) PG MCHC (30-36) % RDW (11.6-14.8) % Plt Count (150-400) X10^3/uL Neut % (Auto) (50-75) % Lymph % (Auto) (25-40) % Baker % (Auto) (3-14) % Eos % (Auto) (2-4) % Baso % (Auto) (0-2) % Neut # (Auto) (4287-4172) /uL Lymph # (Auto) (0968-7739) /uL Baker # (Auto) (0-900) /uL Eos # (Auto) (0-450) /uL Baso # (Auto) (0-100) /uL Sodium (137-145) mmol/L Potassium (3.4-5.1) mmol/L Chloride (98-107) mmol/L Carbon Dioxide (22-32) mmol/L BUN (7-17) mg/dL Creatinine (0.52-1.04) mg/dL Estimated GFR (>60) mL/min BUN/Creatinine Ratio (6-22) Glucose (70-100) mg/dL Calcium (8.4-10.2) mg/dL Total Bilirubin (0.2-1.3) mg/dL AST (14-36) IU/L ALT (<35) IU/L Alkaline Phosphatase (38-126) U/L Total Protein (6.3-8.2) g/dL Albumin (3.5-5.0) g/dL Globulin (1.7-4.1) g/dL Albumin/Globulin Ratio (1.0-2.8) Urine Test Negative (Negative) Salicylates (<20) mg/dL U Opiates 300ng/mL cut Negative (Negative) Ur Oxycodone Screen Negative (Negative) Urine Methadone Screen Negative (Negative) Acetaminophen (10-30) ug/mL Ur Barbiturates Screen Negative (Negative) U Tricyclic Antidepress Negative (Negative) Ur Phencyclidine Scrn Negative (Negative) Ur Amphetamines Screen Positive H (Negative) U Methamphetamines Scrn Positive H (Negative) Ur MDMA Scrn (Ecstasy) Negative (Negative) U Benzodiazepines Scrn Negative (Negative) Urine Cocaine Screen Negative (Negative) U Marijuana (THC) Screen Positive H (Negative) Ethyl Alcohol ( - 10) mg/dL SARS-CoV-2 (PCR) (Negative) MDM Narrative Medical decision making narrative: Patient signed out to me by Dr. Lo. No issues overnight anticipate transport in morning. Patient signed out to Dr. Rodriguez 05/20/23m Michael: Patient signed out to myself pending transport to psychiatric facility. Patient has been persistently low blood pressure been his up ambulating and moving around. Did receive fluids overnight this morning. Patient appears asymptomatic and had no additional issues in the department. Naloxone at Discharge Meets criteria for naloxone at discharge?: Yes, but RX not given Reason patient is not provided naloxone?: Transferring patient Discharge Plan Departure Patient Disposition: Xfer Psychiatric Hosp Clinical Impression: Amphetamine abuse, episodic, Depression, Suicidal ideation Prescriptions: No Action hydroxyzine pamoate 50 mg capsule 50 mg PO QID Qty: 120 1RF sertraline 50 mg tablet 50 mg PO DAILY Qty: 30 2RF Rx Instructions: For first 4 days take one-half tab daily, then if no side effects increase to 1 tab daily trazodone 50 mg tablet 100 mg PO BEDTIME PRN (Reason: sleep) Qty: 60 1RF Mirena 21 mcg/24 hours (8 yrs) 52 mg intrauterine device intrauterine ONCE Rx Instructions: Inserted 05/07/23 Referrals: Ramon Hilton ARNP [Primary Care Provider] -
[2023-05-19 16:46] LABS: Add Manual Diff / Slide Review NO; Basophils Absolute Auto 100 /uL (0-100); Basophils Percent Auto 0.6 % (0-2); Eosinophils Absolute Auto 100 /uL (0-450); Eosinophils Percent Auto 0.9 % (2-4); Hematocrit 35.9 % (36-46); Hemoglobin 12.4 g/dL (12.0-16.0); Lymphocytes Absolute Auto 3100 /uL (1100-4500); Mean Corpuscular HGB Conc 34.6 % (30-36); Mean Corpuscular Hemoglobin 29.7 PG (26-34); Mean Corpuscular Volume 85.8 fL (80-100); Monocytes Absolute Auto 800 /uL (0-900); Monocytes Percent Auto 6.7 % (3-14); Neutrophils Absolute Auto 7800 /uL (1500-7000); Neutrophils Percent Auto 65.8 % (50-75); Platelet Count 458 X10^3/uL (150-400); Red Blood Cell Count 4.18 X10^6/uL (4.0-5.2); Red Cell Distribution Width 12.9 % (11.6-14.8); White Blood Cell Count 11.9 X10^3/uL (4.5-11.0)
[2023-05-19 16:52] LABS: Acetaminophen < 10 ug/mL (10-30); Alanine Aminotransferase 18 IU/L (<35); Albumin 4.2 g/dL (3.5-5.0); Albumin Globulin Ratio 1.4 (1.0-2.8); Alkaline Phosphatase 78 U/L (38-126); Aspartate Aminotransferase 21 IU/L (14-36); Bilirubin Total 0.5 mg/dL (0.2-1.3); Blood Urea Nitrogen 8 mg/dL (7-17); Calcium 8.7 mg/dL (8.4-10.2); Carbon Dioxide 23 mmol/L (22-32); Chloride 102 mmol/L (98-107); Estimated Glomerular Filt Rate > 60 mL/min (>60); Ethanol (ETOH) < 10 mg/dL; Glucose 101 mg/dL (70-100); HEMOLYSIS < 15 (0-50); Potassium 3.4 mmol/L (3.4-5.1); Salicylate < 1.0 mg/dL (<20); Sodium 136 mmol/L (137-145); Total Protein 7.2 g/dL (6.3-8.2)
[2023-05-19 16:58] LABS: COVID19 -Nasal RAPID Negative (Negative)
[2023-05-19 17:53] LABS: Pregnancy Test Urine Negative (Negative)
[2023-05-19 17:58] LABS: UR Morphine/Opiate cutoff 300 Negative (Negative); Ur Creatinine Normal (Normal); Ur Specific Gravity Normal (Normal); Urine Amphetamines Positive (Negative); Urine Cocaine Negative (Negative); Urine Methamphetamines Positive (Negative); Urine Tetrahydrocannabinol Positive (Negative); Urine pH Normal (Normal)
[2023-05-19 17:59] LABS: Urine Barbiturates Negative (Negative); Urine Benzodiazepines Negative (Negative); Urine MDMA Negative (Negative); Urine Methadone Negative (Negative); Urine Oxycodone Negative (Negative); Urine Phencyclidine Negative (Negative); Urine Tricyclic Antidepressant Negative (Negative)
--- NOTE | 2023-05-19 18:06 | CM.SWNOTE ---
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 Patient has hx of auditory hallucinations. Patient endorses she also has more trazodone in her pocket but she changed her mind and did not take more. Patient endorses current SI, no current plans. Patient is voluntarily seeking inpatient hospitalization. Precipitating Event(s) Patient was at [facility] a few weeks ago for a week long stay, patient states her family drove her there and forced her to check in, patient endorses she was there voluntarily. Patient endorses she has been very depressed in the last couple of months. Patient states she took pills as prescribed this AM and then took 4 trazodone with intent to kill self. Patient endorses that her family states they believe she has been in a state of psychosis for the last 6 months. Patient endorses that there are always voices in her head, but not currently. Patient states her daughter just moved to [place]. Patient Strengths Patient has support from family. Current Behavioral Health Provider(s) Patient states she has been Include Facility, Provider, Ph. # trying to find a outpatient provider since her d/c from [facility] but has been unsuccessful. Psych. Hx Mental Health and Chemical Patient has hx of Depression, Dependency Generalized Anxiety Disorder, Auditory Hallucinations, Insomnia, Substance use disorder, SI and hx of suicide attempt. Patient endorses she drank a buzzball of ETOH today, and smoked Marijuana. Patient endorses she used Methamphetamine yesterday and has a hx of dabbling in cocaine and Methamphetamine. Patient states she was previously clean from Methamphetamine for two months . Patient has rx for Hydorxyzine Paomoate 50mg, Sertraline 50 mg, and Trazodone 100mg. Patient recently discontinued esxitaloprame oxalate and buproprion HCl after recent PCP appt on 05/07/23. Family Hx of Behavioral Abuse None reported Psychiatric Hospitalizations (date(s)/ Patient was voluntary at location) [facility] earlier in April 2023 for about 8 days Psychosocial information & Support Patient is 32 y/o female who Systems resides in [place] on [address] property with boyfriend, son, boyfriend's daughter, patient states her daughter just moved to [place]. Patient states her mother and brother have houses on the property as well. 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 Patient states she hears the voices all the time and wants them to stop. Patient states I feel like I'm in a state of confusion. Patient denies visual hallucinations. Thought Processes (Tbczodv-Weqxyfoq-Mqkt coherent Hngsstss-Rrgdrefn-Adgawquulz- Usfxgwavdsysyt-Vzhnimy-Gorcabvejlvm- Thought Blocking) Speech (Akvzdo-Hpfs-Mqsmycz-Rapid-Soft- slurred, soft Loud-Pressured) Motor (Pcbubd-Lpyxneybc-Yjuu-Other) slow/normal Insight (Mqnq-Dnob-Byre/Limited) fair/limited Judgement (Newt-Miqm-Ykqy/Limited) fair/limited Impulse Control (Adequate-Impaired) adequate Memory (Rtgllozsq-Gxmwdd-Stijcw, intact, not formally assessed Impaired-Intact) Concentration (Intact-Impaired) intact Attention (Intact-Impaired) intact Behavior (Appropriate-Inappropriate) appropriate Additional Comment Patient presents as calm, cooperative and communicative. Risk Assessment Suicidal Ideation (Plan) Yes Homicidal Ideation (Plan) No Comment Patient denies HI. Patient endorses current SI, no current plan. Patient informed RN that voices tell her to kill herself. Patient had a suicide attempt today after an intentional overdose of her medication. Patient endorses she has been very depressed the last couple of months. Intervention Intervention BITUMEN PLANT OPERATOR enters room to meet with patient. Patient endorses hx of depression, SI and auditory hallucinations. Patient endorses her intentional overdose earlier today. Patient states she is seeking voluntary inpatient hospitalization. Patient endorses she is hoping to get help to stop the voices in her head. It is the opinion of this BITUMEN PLANT OPERATOR that patient is appropriate for and will benefit from voluntary inpatient hospitalization. BITUMEN PLANT OPERATOR reviews the above with ED provider Dr. Lo who indicates agreement and understanding. Plan RA Plan BITUMEN PLANT OPERATOR to seek voluntary inpatient bed for patient upon medical clearance. Sushma Rose, DUPLICATING MACHINE OPERATOR
--- NOTE | 2023-05-19 19:34 | CM.SWNOTE ---
Addendum entered by Sushma Rose 05/19/23 19:35: TUB MENDER Note TUB MENDER speaks with patient and patient endorses preference for [facility], but willing to go somewhere nearby as patient has preference to be close to family. Patient endorses he is voluntary and willing to wait in ED until placement is found. TUB MENDER calls [facility], it is reported that they are at capacity and have no upcoming discharges. TUB MENDER calls [facility], it is reported that they have beds and can review for tomorrow, TUB MENDER faxes clinicals for review. TUB MENDER calls [facility] and it is reported that they have beds and can review patient. TUB MENDER faxes clinicals. Plan: ED team to f/u with [facility] and [facility] for voluntary inpatient hospitalization. BEVERLY Muhammad Original Note: ED TUB MENDER Note TUB MENDER calls [facility], it is reported that they have beds for tomorrow, TUB MENDER faxes clinicals for review. TUB MENDER calls [facility], it is reported that they have beds for tomorrow, TUB MENDER faxes clinicals for review. Plan: ED team to f/u with [facility] and [facility] regarding referrals and to seek inpatient bed for patient. BEVERLY Muhammad
[2023-05-20] VITALS (58 sets, daily range): BP systolic 94–111; BP diastolic 44–71; PULSE 73–111; RESP 14–26; TEMP 36.8; O2SAT 90–100
--- NOTE | 2023-05-20 06:53 | PC.NURSE ---
family member here to bring clothes and pick up attendant extra belongings
--- NOTE | 2023-05-20 07:15 | PC.NURSE ---
This RNs first interaction/observation of pt. Pt is lying down, resting with eyes closed, she is turning over in bed and adjusting her blanket, on the monitor, VSS.
[2023-05-20] MEDS: SODIUM CHLORIDE 0.9% 1,000 ML 1000 ML IV (08:10)
== END 2023-05-20 10:42 ==
PROVIDERS: Emergency Medicine; Emergency Provider Emergency Medicine; PCP Registered Nurse Diabetes Educator
DX: F15.10 Other stimulant abuse, uncomplicated (principal); F32.A Depression, unspecified; R45.851 Suicidal ideations; R07.9 Chest pain, unspecified; Z20.822 Contact with and (suspected) exposure to COVID-19
CPT/HCPCS: 80053; 80305; 80320; 80329; 81025; 85025; 87635; 93005; 93010; 96360; 96361; 99284; C9803; G0480

== ENCOUNTER 2023-09-10 09:42 | Inpatient (IN) | payer OTHER, MEDICAID, SELFPAY ==
[2023-09-10] VITALS (22 sets, daily range): BP systolic 84–134; BP diastolic 48–70; PULSE 98–137; RESP 15–22; TEMP 36–37.4; O2SAT 94–100; BMI 25.7
--- NOTE | 2023-09-10 09:49 | DI.RAD.S_ITS ---
PROCEDURE: XR CHEST 1V INDICATIONS: suspected sepsis TECHNIQUE: One view of the chest was acquired. COMPARISON: [facility], [place], XR CHEST 1V, 11/03/2021, 23:31. [facility], [place], CHEST 2 VIEW, 02/20/2012, 13:05. FINDINGS: Surgical changes and devices: Cholecystectomy clips. Lungs and pleura: Lungs are clear. No pleural effusions or pneumothorax. Mediastinum: Mediastinal contours appear normal. Heart size is normal. Bones and chest wall: No suspicious bony lesions. Overlying soft tissues appear unremarkable. IMPRESSION: No acute cardiopulmonary abnormality is seen. Dictated by: Marco Feliciano M.D. on 09/10/2023 at 10:14 Approved by: Marco Feliciano M.D. on 09/10/2023 at 10:14
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
[2023-09-10] MEDS: cefTRIAXone 1,000 MG in SODIUM CHLORIDE 0.9% 100 ML 200 MG IV (10:02)
[2023-09-10] MEDS: KETOROLAC 30 MG/ML VIAL 15 MG IV (10:02)
[2023-09-10] MEDS: ONDANSETRON 4 MG/2 ML INJ IV ×2 (10:03→17:18)
[2023-09-10] MEDS: ACETAMINOPHEN IV 1,000 MG/100 ML VIAL 400 MG IV (10:04)
[2023-09-10] MEDS: SODIUM CHLORIDE 0.9% 2,041.17 ML 680.39 ML IV (10:08)
[2023-09-10 10:12] LABS: Add Manual Diff / Slide Review NO; Basophils Absolute Auto 100 /uL (0-100); Basophils Percent Auto 0.3 % (0-2); Eosinophils Absolute Auto 0 /uL (0-450); Hemoglobin 12.9 g/dL (12.0-16.0); Lymphocytes Absolute Auto 1100 /uL (1100-4500); Lymphocytes Percent Auto 4.5 % (25-40); Mean Corpuscular HGB Conc 34.9 % (30-36); Mean Corpuscular Volume 83.1 fL (80-100); Monocytes Absolute Auto 1400 /uL (0-900); Monocytes Percent Auto 5.3 % (3-14); Neutrophils Absolute Auto 23000 /uL (1500-7000); Neutrophils Percent Auto 89.9 % (50-75); Platelet Count 320 X10^3/uL (150-400); Red Blood Cell Count 4.45 X10^6/uL (4.0-5.2); Red Cell Distribution Width 13.2 % (11.6-14.8); White Blood Cell Count 25.6 X10^3/uL (4.5-11.0)
[2023-09-10 10:18] LABS: HEMOLYSIS < 15 (0-50)
[2023-09-10 10:19] LABS: INR 1.6 (0.9-1.3); Prothrombin Time 18.9 SECONDS (9.4-12.5)
[2023-09-10 10:22] LABS: PTT Partial Thromboplastin Tim 28 SECONDS (25.1-36.5)
[2023-09-10 10:23] LABS: Alanine Aminotransferase 24 IU/L (<35); Albumin 4.2 g/dL (3.5-5.0); Albumin Globulin Ratio 1.1 (1.0-2.8); Alkaline Phosphatase 82 U/L (38-126); Aspartate Aminotransferase 29 IU/L (14-36); BUN Creatinine Ratio 15.9 (6-22); Bilirubin Total 1.3 mg/dL (0.2-1.3); Blood Urea Nitrogen 14 mg/dL (7-17); Calcium 9.5 mg/dL (8.4-10.2); Carbon Dioxide 24 mmol/L (22-32); Chloride 98 mmol/L (98-107); Estimated Glomerular Filt Rate > 60 mL/min (>60); Globulin 3.9 g/dL (1.7-4.1); Glucose 118 mg/dL (70-100); Lipase 31 U/L (23-300); Potassium 3.3 mmol/L (3.4-5.1); Sodium 133 mmol/L (137-145); Total Protein 8.1 g/dL (6.3-8.2)
[2023-09-10 10:24] LABS: Lactate (Lactic Acid) 1.4 mmol/L (0.7-2.1)
[2023-09-10 10:49] LABS: Procalcitonin 6.47 ng/mL (<0.5)
[2023-09-10 11:23] LABS: Appearance Urine UA CLOUDY; Bilirubin Urine UA 1+ (NEGATIVE); Color Urine UA YELLOW; Glucose Urine UA NEGATIVE (Negative); Ketones Urine UA TRACE (NEGATIVE); Leukocyte Esterase Urine UA 1+ (NEGATIVE); Nitrite Urine UA NEGATIVE (Negative); Occult Blood Urine UA 1+ (Negative); Protein Urine UA 2+ (Negative); Specific Gravity Urine UA 1.015 (1.000-1.035); pH Urine UA 5.5 (4.5-8.0)
[2023-09-10 11:32] LABS: Bacteria Urine Many (>30); Culture Indicated Urine Specimen Cultured; RBC Urine 0-1/HPF (0-5/HPF); Squamous Epithelial Cell Urine 10-30 /HPF (0-5/HPF); WBC Urine 30-100/HPF (0-5/HPF)
--- NOTE | 2023-09-10 12:25 | DI.CT.S_ITS ---
PROCEDURE: CT KIDNEY URETER BLADDER (KUB) INDICATIONS: flank pain sepsis TECHNIQUE: Axial sections were acquired from the lung bases to the pubic symphysis. Coronal and sagittal reformats were performed. For radiation dose reduction, the following was used: automated exposure control, adjustment of mA and/or kV according to patient size. COMPARISON: None. FINDINGS: Image quality: Diagnostic. Lower Chest: No significant findings. URINARY: Right Kidney: The kidneys edema is in appearance with very mild hydronephrosis and extensive inflammatory change in the adjacent fat. No renal parenchymal stones. Right Ureter: Mildly dilated proximally, with surrounding inflammatory change. It than assumes a normal caliber. No obstructing stone identified. Left Kidney: No stones or hydronephrosis. Left Ureter: No hydroureter. Bladder: Normal wall thickness. No stones. ABDOMEN: Liver: No contour-deforming solid mass. Hepatomegaly. Liver measures 20.2 cm in diameter. Gallbladder: Surgically absent Biliary ducts: No biliary dilation. Pancreas: No ductal dilation. Spleen: Mild splenomegaly. Spleen measures 13.6 cm. Adrenal Glands: No adrenal nodules. Stomach and Bowel: Normal colonic caliber, without significant wall thickening. Peritoneum: No abnormal intraperitoneal fluid. No free air. Ventral Wall: No hernia. Abdominal Nodes: No enlarged retroperitoneal or mesenteric lymph nodes. Vessels: Aorta and inferior vena cava are normal in size. PELVIS: Pelvic Organs: Unremarkable. Pelvic Nodes: Unremarkable. Miscellaneous: No inguinal hernias are seen. Bones: Unremarkable. IMPRESSION: 1. There is edema and mild hydronephrosis involving the right kidney. There is extensive inflammatory change in the adjacent fat. Additionally, the proximal ureter is dilated with inflammatory change adjacent to the proximal ureter. It than assumes a normal caliber. No radiopaque obstructing ureteral stone identified. 2. Remote cholecystectomy. 3. Hepatomegaly. 4. Mild splenomegaly. Comment: Findings may represent ureteral obstruction from a non radiopaque stone. Alternatively, findings could possibly represent pyelonephritis and pyuria and ureteritis. Recommend clinical correlation. Dictated by: Travis Davis M.D. on 09/10/2023 at 13:45 Approved by: Travis Davis M.D. on 09/10/2023 at 13:58
[2023-09-10] MEDS: SODIUM CHLORIDE 0.9% 1,000 ML 1000 ML IV (13:58)
--- NOTE | 2023-09-10 14:14 | PM.HP.1 ---
History of Present Illness History of Present Illness Date Patient Seen: 09/10/23 Time Patient Seen: 14:55 Chief complaint: fever x3, blood in urine Narrative: This is a 33 year old female with PMH of Bipolar disorder with psychosis and prior psychiatric hospitalizations who presented with hematuria, fever, and vomiting. Patient states she began to develop dysuria starting around 2 weeks ago. Two days ago she became febrile, and yesterday had an episode of emesis. She has been nauseous with no appetite. She has had back pain for some weeks, does not think its related and maybe is a bit more on the right side. She denies chest pain, but has felt a bit short of breath the last couple of days. Emesis was NBNB. In the ER patient was persistently tachycardic, with bordline soft BP, but MAP >80. UA was positive for infection. Non-con CT showed R pyelonephritis with mild non-obstructive hydronephrosis on the R. She did not show improvement despite fluids and antibiotics in the ER. She was admitted for R pyelonephritis. [facility] Medical History Bipolar disorder, unspecified Encounter for IUD insertion (~05/07/23) Encounter for supervision of other normal , unspecified trimester Substance use disorder Late menses Patient desires Irregular menstrual cycle Screening for cervical cancer Insomnia Nightmares Depression Family history of ovarian cancer Healthy female Family History Father Diabetes mellitus History of heart disease Hyperlipidemia Hypertension Mother Ovarian cancer Grandmother Diabetes mellitus Social History marital status: unmarried,single number of children: 1 household members: significant other and children lives independently: Yes housing: house pets and animals: Yes (cats, guinea pig, chihuahua - daughter to do litter box now) education level: college occupational status: employed current occupational exposures/hazards: No seatbelt use: always water heater temp set < 120 deg: Yes working smoke detector in home: Yes fire extinguisher in home: Yes carbon monox detector in home: Yes firearms in home: No do you feel safe at home: Yes Smoking Status: Current every day smoker quit status: considering quitting second hand exposure: No alcohol intake: former substance use type: former substance user and marijuana during the past year weight has: remained stable well-balanced diet: daily or most days daily servings fruits/ve-4 caffeine: Yes (going to now limit it to 200mg) Type(s) of exercise: irregular exercise Meds Home Medications and Allergies Home Medications Medication Instructions Recorded Confirmed Type hydroxyzine pamoate 50 mg capsule 50 mg PO QID PRN Insomnia 06/04/23 09/10/23 History thiamine HCl (vitamin B1) 100 mg 100 mg PO DAILY #90 tabs 06/27/23 09/10/23 Rx tablet escitalopram oxalate 5 mg tablet 5 mg PO DAILY #30 tabs 09/02/23 09/10/23 Rx (Lexapro) nicotine 14 mg/24 hr daily 1 patch transdermal Q24H #28 ea 09/02/23 09/10/23 Rx transdermal patch olanzapine 5 mg tablet 5 mg PO DAILY #30 tabs 09/02/23 09/10/23 Rx oxcarbazepine 300 mg tablet 300 mg PO DAILY #30 tabs 09/02/23 09/10/23 Rx trazodone 50 mg tablet 100 mg (2 x 50 mg) PO BEDTIME PRN 09/02/23 09/10/23 Rx sleep #60 tabs Allergies Allergy/AdvReac Type Severity Reaction Status Date / Time doxycycline [DOXYCYCLINE] Allergy Intermediate Hives Verified 09/10/23 09:45 Review of Systems Review of Systems Narrative: All other systems reviewed with the patient and are negative unless otherwise stated. Exam Vital Signs (past 8 hours): - 09/10/23 09:45 09/10/23 09:57 09/10/23 09:57 Temperature 98.4 F Pulse Rate 137 H 130 H Respiratory Rate 15 17 Blood Pressure 99/64 125/66 Pulse Oximetry 98 99 Oxygen Delivery Method Room Air 09/10/23 10:00 09/10/23 10:00 09/10/23 10:30 Temperature Pulse Rate 128 H 107 H Respiratory Rate 22 16 Blood Pressure 130/68 Pulse Oximetry 99 99 Oxygen Delivery Method 09/10/23 10:30 09/10/23 11:00 09/10/23 11:00 Temperature Pulse Rate 105 H Respiratory Rate 18 Blood Pressure 134/64 133/70 Pulse Oximetry 99 Oxygen Delivery Method 09/10/23 11:15 09/10/23 11:15 09/10/23 11:30 Temperature Pulse Rate 102 H 100 H Respiratory Rate 17 20 Blood Pressure 103/58 L Pulse Oximetry 99 98 Oxygen Delivery Method 09/10/23 11:30 09/10/23 12:00 09/10/23 12:00 Temperature Pulse Rate 102 H Respiratory Rate 18 Blood Pressure 109/64 118/65 Pulse Oximetry 99 Oxygen Delivery Method 09/10/23 12:30 09/10/23 12:30 09/10/23 12:58 Temperature Pulse Rate 101 H Respiratory Rate 16 Blood Pressure 111/61 93/51 L Pulse Oximetry 99 Oxygen Delivery Method 09/10/23 12:58 09/10/23 13:00 09/10/23 13:00 Temperature Pulse Rate 102 H 101 H Respiratory Rate 18 18 Blood Pressure 91/55 L Pulse Oximetry 100 98 Oxygen Delivery Method 09/10/23 13:07 09/10/23 13:07 09/10/23 13:30 Temperature Pulse Rate 98 H 100 H Respiratory Rate 16 18 Blood Pressure 90/51 L Pulse Oximetry 98 99 Oxygen Delivery Method Oxygen Delivery Method Room Air Narrative Exam Narrative: General:? Patient is well developed and well nourished, in no distress at this time. HEENT:? Normocephalic, atraumatic, extraocular muscles intact, oral pharynx is clear and mucous membranes are moist. Neck: supple and symmetric, trachea is midline, no cervical adenopathy. Negative for JVD Chest:? Normal AP diameter and contour without kyphoscoliosis, no tachypnea, equal chest rise bilaterally. Lungs:? CTA b/l no wheezing rhonchi or rales. Cardio:?RRR no m/r/g. Abdomen: S NT ND. No CVA tenderness. Musculoskeletal:? Muscle strength and tone are equal within normal limits, no deformity. Extremities: No edema or joint effusions. No cyanosis or clubbing. Skin:? Pale,? Warm to touch,dry and intact without rashes, ulcerations or petechiae.? Neuro:? Alert and orientated x3,? sensation to touch intact in all extremities, no gross deficits noted of cranial nerves. Psych:? Patient has a well-kept appearance, appropriate affect, mental status attitude thought context and judgment are appropriate for age. Objective Labs 09/10/23 10:00 09/10/23 10:00 Labs: Laboratory Results - last 24 hr 09/10/23 09/10/23 10:00 11:13 WBC 25.6 H RBC 4.45 Hgb 12.9 Hct 37.0 MCV 83.1 MCH 29.0 MCHC 34.9 RDW 13.2 Plt Count 320 Neut % (Auto) 89.9 H Lymph % (Auto) 4.5 L [place] % (Auto) 5.3 Eos % (Auto) 0.0 L Baso % (Auto) 0.3 Neut # (Auto) 46103 H Lymph # (Auto) 1100 [place] # (Auto) 1400 H Eos # (Auto) 0 Baso # (Auto) 100 PT 18.9 H INR 1.6 H APTT 28 Sodium 133 L Potassium 3.3 L Chloride 98 Carbon Dioxide 24 BUN 14 Creatinine 0.88 Estimated GFR > 60 BUN/Creatinine Ratio 15.9 Glucose 118 H Lactate 1.4 Calcium 9.5 Total Bilirubin 1.3 AST 29 ALT 24 Alkaline Phosphatase 82 Total Protein 8.1 Albumin 4.2 Globulin 3.9 Albumin/Globulin Ratio 1.1 Lipase 31 Procalcitonin 6.47 H Urine Color Yellow Urine Appearance Cloudy Urine pH 5.5 Ur Specific [place] 1.015 Urine Protein 2+ H Urine Glucose (UA) Negative Urine Ketones Trace H Urine Occult Blood 1+ H Urine Nitrate Negative Urine Bilirubin 1+ H Ur Bilirubin Confirm TNP Urine Urobilinogen 1.0 Ur Leukocyte Esterase 1+ H Urine RBC 0-1/hpf Urine WBC 30-100/hpf H Ur Squamous Epith Cells 10-30 /hpf H D Urine Bacteria Many (>30) H Ur Culture Indicated? Specimen cultured Assessment & Plan Assessment & Plan narrative: 1. R pyelonephritis, rule out sepsis - continue ceftriaxone 2g q24 hours. - blood cultures and urine cultures pending - continue IV fluids, monitor BP - SOFA score of 1. Patient continues to have tachycardia despite adquate fluid boluses and antibiotic administration in the ER. There is also question of possible obstruction with R hydronephrosis, though no stones noted on CT imaging. 2. Hypokalemia and hyponatremia - secondary to #1 above. Continue NS infusion at 100 cc per hour. K 3.3 and Na 133 today. - ordered for 40 mEq potassium today. - daily BMP ordered 3. Bipolar disorder, stable - continue home medications of lexapro, hydroxyzine, olanzapine, oxcabazepine, and trazodone 4. History of substance use - last use recently of marijuana. Also with EtOH and tobacco use. - nicotine patch ordered - no prior history of alcohol withdrawal Code: Full surrogate is patient's mother. I have utilized all available immediate resources to obtain, update, or review the patient's current medications. DVT ppx: lovenox daily Dispo: Admitted inpatient with continued tachycardia despite fluids in the emergency room and concern for possible R ureteral obstruction. Anticipated length of stay is beyond two midnights. Discussed with ER provider to contribute to above history, assessment and plan. I Have reviewed patient's outpatient documentation from primary care, in addition to presenting documentation, imaging, and labs personally.
[2023-09-10] MEDS: ACETAMINOPHEN 325 MG TABLET 975 MG PO ×2 (14:59→21:00)
[2023-09-10] MEDS: KETOROLAC 10 MG TABLET PO (15:00)
[2023-09-10] MEDS: SODIUM CHLORIDE 0.9% 1,000 ML 100 ML IV ×2 (15:01→21:01)
[2023-09-10] MEDS: NICOTINE 21 MG PATCH TOP (16:19)
[2023-09-10] MEDS: POTASSIUM CHLORIDE 20 MEQ TAB 40 MEQ PO (16:19)
[2023-09-10] MEDS: OXYCODONE IR 5 MG TABLET PO ×2 (16:47→21:00)
[2023-09-10] MEDS: TRAZODONE 50 MG TABLET 100 MG PO (21:06)
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
[2023-09-11] VITALS (11 sets, daily range): BP systolic 96–141; BP diastolic 54–88; PULSE 113–140; RESP 16–24; TEMP 36.9–37.6; O2SAT 93–97
[2023-09-11] MEDS: OXYCODONE IR 5 MG TABLET PO ×4 (02:45→23:32)
[2023-09-11] MEDS: ACETAMINOPHEN 325 MG TABLET 975 MG PO ×4 (05:48→23:31)
[2023-09-11 06:06] LABS: Add Manual Diff / Slide Review NO; Basophils Absolute Auto 0 /uL (0-100); Basophils Percent Auto 0.2 % (0-2); Eosinophils Absolute Auto 0 /uL (0-450); Eosinophils Percent Auto 0.2 % (2-4); Hematocrit 31.9 % (36-46); Lymphocytes Absolute Auto 1200 /uL (1100-4500); Lymphocytes Percent Auto 7.6 % (25-40); Mean Corpuscular HGB Conc 34.5 % (30-36); Mean Corpuscular Hemoglobin 29.2 PG (26-34); Mean Corpuscular Volume 84.7 fL (80-100); Monocytes Absolute Auto 700 /uL (0-900); Monocytes Percent Auto 4.6 % (3-14); Neutrophils Absolute Auto 13500 /uL (1500-7000); Neutrophils Percent Auto 87.4 % (50-75); Platelet Count 269 X10^3/uL (150-400); Red Blood Cell Count 3.77 X10^6/uL (4.0-5.2); Red Cell Distribution Width 13.9 % (11.6-14.8); White Blood Cell Count 15.4 X10^3/uL (4.5-11.0)
[2023-09-11 06:18] LABS: Alanine Aminotransferase 20 IU/L (<35); Albumin 3.2 g/dL (3.5-5.0); Alkaline Phosphatase 65 U/L (38-126); Aspartate Aminotransferase 23 IU/L (14-36); BUN Creatinine Ratio 16.9 (6-22); Bilirubin Total 0.7 mg/dL (0.2-1.3); Blood Urea Nitrogen 12 mg/dL (7-17); Calcium 8.5 mg/dL (8.4-10.2); Carbon Dioxide 25 mmol/L (22-32); Chloride 106 mmol/L (98-107); Estimated Glomerular Filt Rate > 60 mL/min (>60); Globulin 3.2 g/dL (1.7-4.1); Glucose 101 mg/dL (70-100); HEMOLYSIS < 15 (0-50); Magnesium 2.1 mg/dL (1.6-2.3); Potassium 4.2 mmol/L (3.4-5.1); Sodium 135 mmol/L (137-145); Total Protein 6.4 g/dL (6.3-8.2)
[2023-09-11 06:33] LABS: Procalcitonin 19.1 ng/mL (<0.5)
[2023-09-11] MEDS: SODIUM CHLORIDE 0.9% 1,000 ML 100 ML IV ×2 (07:01→19:48)
--- NOTE | 2023-09-11 07:25 | PM.PN.1 ---
Subjective Subjective Interval history: Patient lethargic and sleepy because she tossed and turned all night. But feels slightly better today. Exam Vital Signs (past 8 hours): - 09/11/23 03:57 09/11/23 03:57 Temperature 98.7 F Pulse Rate 113 H Respiratory Rate 16 Blood Pressure 103/54 L Pulse Oximetry 95 95 Oxygen Delivery Method Room Air Oxygen Flow Rate 0 0 Oxygen Delivery Method Room Air Oxygen Flow Rate 0 Narrative Exam Narrative: GEN: no acute distress, somnolent HEENT: moist mucous membranes, PERRL NECK: trachea midline, no JVD CV: regular rate and rhythm, no murmurs PULM: clear bilaterally ABD: soft, nontender, nondistended, no organomegaly EXT: warm and well perfused with no edema NEURO: groggy, oriented, no focal deficits Objective Labs 09/11/23 05:55 09/11/23 05:55 Labs: Laboratory Results - last 24 hr 09/10/23 09/10/23 09/11/23 10:00 11:13 05:55 WBC 25.6 H 15.4 H RBC 4.45 3.77 L Hgb 12.9 11.0 L Hct 37.0 31.9 L MCV 83.1 84.7 MCH 29.0 29.2 MCHC 34.9 34.5 RDW 13.2 13.9 Plt Count 320 269 Neut % (Auto) 89.9 H 87.4 H Lymph % (Auto) 4.5 L 7.6 L [place] % (Auto) 5.3 4.6 Eos % (Auto) 0.0 L 0.2 L Baso % (Auto) 0.3 0.2 Neut # (Auto) 22041 H 45255 H Lymph # (Auto) 1100 1200 [place] # (Auto) 1400 H 700 Eos # (Auto) 0 0 Baso # (Auto) 100 0 PT 18.9 H INR 1.6 H APTT 28 Sodium 133 L 135 L Potassium 3.3 L 4.2 Chloride 98 106 Carbon Dioxide 24 25 BUN 14 12 Creatinine 0.88 0.71 Estimated GFR > 60 > 60 BUN/Creatinine Ratio 15.9 16.9 Glucose 118 H 101 H Lactate 1.4 Calcium 9.5 8.5 Magnesium 2.1 Total Bilirubin 1.3 0.7 AST 29 23 ALT 24 20 Alkaline Phosphatase 82 65 Total Protein 8.1 6.4 Albumin 4.2 3.2 L Globulin 3.9 3.2 Albumin/Globulin Ratio 1.1 1.0 Lipase 31 Procalcitonin 6.47 H 19.1 H Urine Color Yellow Urine Appearance Cloudy Urine pH 5.5 Ur Specific [place] 1.015 Urine Protein 2+ H Urine Glucose (UA) Negative Urine Ketones Trace H Urine Occult Blood 1+ H Urine Nitrate Negative Urine Bilirubin 1+ H Ur Bilirubin Confirm TNP Urine Urobilinogen 1.0 Ur Leukocyte Esterase 1+ H Urine RBC 0-1/hpf Urine WBC 30-100/hpf H Ur Squamous Epith Cells 10-30 /hpf H D Urine Bacteria Many (>30) H Ur Culture Indicated? Specimen cultured PFS Medical History Bipolar disorder, unspecified Encounter for IUD insertion (~05/07/23) Encounter for supervision of other normal , unspecified trimester Substance use disorder Late menses Patient desires Irregular menstrual cycle Screening for cervical cancer Insomnia Nightmares Depression Family history of ovarian cancer Healthy female Family History Father Diabetes mellitus History of heart disease Hyperlipidemia Hypertension Mother Ovarian cancer Grandmother Diabetes mellitus Social History marital status: unmarried,single number of children: 1 household members: family and children lives independently: Yes housing: house pets and animals: Yes (cats, guinea pig, chihuahua - daughter to do litter box now) education level: college occupational status: employed current occupational exposures/hazards: No seatbelt use: always water heater temp set < 120 deg: Yes working smoke detector in home: Yes fire extinguisher in home: Yes carbon monox detector in home: Yes firearms in home: No do you feel safe at home: Yes Smoking Status: Current every day smoker quit status: considering quitting second hand exposure: No alcohol intake: former substance use type: former substance user and marijuana during the past year weight has: remained stable well-balanced diet: daily or most days daily servings fruits/ve-4 caffeine: Yes (going to now limit it to 200mg) Type(s) of exercise: irregular exercise Assessment & Plan Assessment & Plan narrative: 1. R pyelonephritis, with sepsis ruled out - continue ceftriaxone 2g q24 hours. - blood cultures and urine cultures pending - continue IV fluids, monitor BP - SOFA score of 1. Patient continues to have tachycardia despite adequate fluid boluses and antibiotic administration in the ER. There is also question of possible obstruction with R hydronephrosis, though no stones noted on CT imaging. 2. Hypokalemia and hyponatremia, improving - secondary to #1 above. Continue NS infusion at 100 cc per hour. K 3.3 and Na 133 on admission. - received po K repletion - daily BMP ordered 3. Bipolar disorder, stable - continue home medications of lexapro, hydroxyzine, olanzapine, oxcabazepine, and trazodone 4. History of substance use - last use recently of marijuana. Also with EtOH and tobacco use. - nicotine patch ordered - no prior history of alcohol withdrawal 5. Insomnia - pt had nightmares on 09/11 with her home trazodone - benadryl po PRN at bedtime Code: Full surrogate is patient's mother. I have utilized all available immediate resources to obtain, update, or review the patient's current medications. DVT ppx: lovenox daily Dispo: Pending improvement in pyelo and urine/blood cx results. 1-2 days.
--- NOTE | 2023-09-11 07:31 | DIET.CONS2 ---
Dietary Inpatient Consultation Note Admission Date: 09/10/2023 14:15 33y F admitted with presumed R pyelonephritis referred to nutrition for unintentional weight loss and MNA score 8. Pt without s/sx malnutrition, no significant weight loss noted. Minor weight loss related to ongoing flank pain and dehydration. [facility] medical management for kidney infection and resumption of normal diet/fluid intake. Diet: 09/10/23 Lunch General (Regular) Diet Diet Modifications: Nutrition Percent Meal Consumed 25% 09/10/23 19:33 Percent Meal Consumed wants to keep tray for a bit 09/10/23 18:00 Electronically Signed by: Elise Downs 09/11/23 07:31 Clinical Dietitian [address] [address]
[2023-09-11] MEDS: cefTRIAXone 2,000 MG in SODIUM CHLORIDE 0.9% 100 ML 200 MG IV (07:37)
[2023-09-11] MEDS: ESCITALOPRAM 10 MG TABLET 5 MG PO (08:29)
[2023-09-11] MEDS: OLANZapine 2.5 MG TABLET 5 MG PO (08:29)
[2023-09-11] MEDS: OXcarbazepine 150 MG TABLET 300 MG PO (08:29)
[2023-09-11] MEDS: NICOTINE 21 MG PATCH TOP (08:29)
[2023-09-11] MEDS: THIAMINE 100 MG TABLET PO (08:29)
[2023-09-11] MEDS: ENOXAPARIN 40 MG/0.4 ML SYRINGE SUBCUT (08:30)
--- NOTE | 2023-09-11 09:33 | CM.DANOTE ---
Initial DCP Assessment Visit Note Reviewed EMR and team rounds for pt's medical status and updates. Went to meet with her bedside, however she was found to be sleeping. Payor: [employer] PCP: Ramon Hilton Pt is a 33 year-old F with a hx of bipolar and NICOLAS, and a hx of suicidal ideation, psychosis, and multiple prior psychiatric hospitalizations presented to the ED on 09/09/23 with fever/vomiting/body aches,chills, and hematuria expressing worsening fatigue and right sided back pain. CT imaging showed R-sided pyelonephritis w/mild non-obstructive hydronephrosis. She was started on IV ABO's and fluids with no improvement, so was admitted to the floor for further IV ABO treatment and monitoring. Blood cultures are currently pending, the Hospitalist anticipates 2-more days of tx before she will be ready for d/c. Pt's mother is her legal surragote, no forms available in EMR for DPOA. DCP will continue to follow for evolving d/c resources and needs. Discharge Planning/Care Management CM Discharge Assessment Start: 09/11/23 09:26 Freq: Status: Active Protocol: Document 09/11/23 09:26 DPL (Rec: 09/11/23 09:33 DPL [id number]) Discharge Planning Assessment Assigned Engineering Team Supervisor MAYRA Perry Advance Directives? No History Provided By Medical Record Expected Length of Stay 2 Has Patient been admitted in last 30 No days? Prior Living Arrangements House Household Members family,children Type of transporation used prior to Drives own vehicle admit Independent with ADL's Yes Is patient alert and oriented? Yes Comment No anticipated d/c needs at this time. Barriers to Discharge No Discharge Plan Home Transportation Arrangement Family Referrals Initiated None needed Whiteboard Updated in Patient Room with Yes name and ext. # of Engineering Team Supervisor Review Status In Process Please Provide Date Initial DC 09/11/23 Assessment Was Performed
[2023-09-11] MEDS: KETOROLAC 10 MG TABLET PO ×2 (12:14→21:30)
--- NOTE | 2023-09-11 12:21 | DI.RAD.S_ITS ---
PROCEDURE: XR KUB INDICATIONS: look for R proximal ureteral stone TECHNIQUE: One view of the abdomen acquired. COMPARISON: [facility], CT, CT KIDNEY URETER BLADDER (KUB), 09/10/2023, 12:42. FINDINGS: Surgical changes and devices: Cholecystectomy clips. Bowel: Bowel gas pattern is normal. Soft tissues: No suspicious abdominal calcifications. Specifically, no radiographic evidence of a right proximal ureteral stone. Visualized solid organ contours appear normal in size. Bones: No suspicious bony lesions. IMPRESSION: No radiographic evidence of nephrolithiasis. Dictated by: Misty Tanner M.D. on 09/11/2023 at 13:04 Approved by: Misty Tanner M.D. on 09/11/2023 at 13:06
[2023-09-11] MEDS: metroNIDAZOLE 500 MG TABLET PO ×3 (12:42→21:30)
[2023-09-11] MEDS: CEFEPIME 2 GM in SODIUM CHLORIDE 0.9% 100 ML IV (12:42)
[2023-09-11] MEDS: SODIUM CHLORIDE 0.9% 1,000 ML 1000 ML IV (12:56)
[2023-09-11] MEDS: SUMAtriptan 25 MG TABLET PO ×2 (12:56→21:54)
[2023-09-11] MEDS: VANCOMYCIN 1,000 MG/200 ML PIGGYBACK 200 MG IV ×2 (13:23→21:31)
[2023-09-12] VITALS (11 sets, daily range): BP systolic 100–134; BP diastolic 67–83; PULSE 95–125; RESP 16–18; TEMP 35.9–37.4; O2SAT 91–97
[2023-09-12] MEDS: CEFEPIME 2 GM in SODIUM CHLORIDE 0.9% 100 ML IV ×2 (01:15→11:41)
[2023-09-12 05:21] LABS: Add Manual Diff / Slide Review NO; Basophils Absolute Auto 0 /uL (0-100); Basophils Percent Auto 0.2 % (0-2); Eosinophils Absolute Auto 0 /uL (0-450); Eosinophils Percent Auto 0.3 % (2-4); Hemoglobin 8.8 g/dL (12.0-16.0); Lymphocytes Absolute Auto 1400 /uL (1100-4500); Lymphocytes Percent Auto 12.7 % (25-40); Mean Corpuscular Hemoglobin 29.7 PG (26-34); Mean Corpuscular Volume 84.7 fL (80-100); Monocytes Absolute Auto 800 /uL (0-900); Monocytes Percent Auto 7.7 % (3-14); Neutrophils Absolute Auto 8400 /uL (1500-7000); Neutrophils Percent Auto 79.1 % (50-75); Platelet Count 259 X10^3/uL (150-400); Red Blood Cell Count 2.95 X10^6/uL (4.0-5.2); Red Cell Distribution Width 13.9 % (11.6-14.8); White Blood Cell Count 10.6 X10^3/uL (4.5-11.0)
[2023-09-12 05:31] LABS: BUN Creatinine Ratio 16.9 (6-22); Blood Urea Nitrogen 10 mg/dL (7-17); Calcium 7.8 mg/dL (8.4-10.2); Carbon Dioxide 22 mmol/L (22-32); Chloride 108 mmol/L (98-107); Estimated Glomerular Filt Rate > 60 mL/min (>60); Glucose 93 mg/dL (70-100); HEMOLYSIS < 15 (0-50); Potassium 3.7 mmol/L (3.4-5.1); Sodium 135 mmol/L (137-145)
[2023-09-12 05:48] LABS: Procalcitonin 12.7 ng/mL (<0.5)
[2023-09-12] MEDS: VANCOMYCIN 1,000 MG/200 ML PIGGYBACK 200 MG IV (05:56)
[2023-09-12] MEDS: SUMAtriptan 25 MG TABLET PO ×2 (07:17→20:09)
[2023-09-12] MEDS: ESCITALOPRAM 10 MG TABLET 5 MG PO (08:14)
[2023-09-12] MEDS: OLANZapine 2.5 MG TABLET 5 MG PO (08:14)
[2023-09-12] MEDS: ENOXAPARIN 40 MG/0.4 ML SYRINGE SUBCUT (08:15)
[2023-09-12] MEDS: ACETAMINOPHEN 325 MG TABLET 975 MG PO ×2 (08:15→16:57)
[2023-09-12] MEDS: metroNIDAZOLE 500 MG TABLET PO ×3 (08:15→20:09)
[2023-09-12] MEDS: THIAMINE 100 MG TABLET PO (08:15)
[2023-09-12] MEDS: NICOTINE 21 MG PATCH TOP (08:18)
[2023-09-12] MEDS: OXcarbazepine 150 MG TABLET 300 MG PO (08:18)
[2023-09-12] MEDS: SODIUM CHLORIDE 0.9% 1,000 ML 100 ML IV (09:24)
[2023-09-12] MEDS: OXYCODONE IR 5 MG TABLET PO ×2 (11:41→16:57)
[2023-09-12] MEDS: VALPROIC ACID 1,000 MG in DEXTROSE 5 % IN WATER 50 ML 60 MG IV (13:00)
--- NOTE | 2023-09-12 13:02 | P.PN_ITS ---
Subjective Subjective Interval history: Patient feels better overall other than her headache is still not better. Improves a little bit with imitrex. WBC now normal. Exam Vital Signs (past 8 hours): - 09/12/23 07:00 09/12/23 07:57 09/12/23 09:05 Temperature 98.8 F 99.3 F Pulse Rate 125 H Respiratory Rate 18 Blood Pressure 134/83 Pulse Oximetry 91 91 Oxygen Delivery Method Nasal Cannula Oxygen Flow Rate 2 09/12/23 11:21 Temperature Pulse Rate Respiratory Rate Blood Pressure Pulse Oximetry Oxygen Delivery Method Nasal Cannula Oxygen Flow Rate 2 Oxygen Delivery Method Nasal Cannula Oxygen Flow Rate 2 Narrative Exam Narrative: GEN: no acute distress, appears uncomfortable HEENT: moist mucous membranes, PERRL NECK: trachea midline, no JVD CV: regular rate and rhythm, no murmurs PULM: clear bilaterally ABD: soft, nontender, nondistended, no organomegaly EXT: warm and well perfused with no edema NEURO: groggy, oriented, no focal deficits Objective Labs 09/12/23 05:11 09/12/23 05:11 Labs: Laboratory Results - last 24 hr 09/12/23 05:11 WBC 10.6 RBC 2.95 L Hgb 8.8 L Hct 25.0 L MCV 84.7 MCH 29.7 MCHC 35.0 RDW 13.9 Plt Count 259 Neut % (Auto) 79.1 H Lymph % (Auto) 12.7 L [place] % (Auto) 7.7 Eos % (Auto) 0.3 L Baso % (Auto) 0.2 Neut # (Auto) 8400 H Lymph # (Auto) 1400 [place] # (Auto) 800 Eos # (Auto) 0 Baso # (Auto) 0 Sodium 135 L Potassium 3.7 Chloride 108 H Carbon Dioxide 22 BUN 10 Creatinine 0.59 Estimated GFR > 60 BUN/Creatinine Ratio 16.9 Glucose 93 Calcium 7.8 L Magnesium 2.0 Procalcitonin 12.7 H PFSH Medical History Bipolar disorder, unspecified Encounter for IUD insertion (~05/07/23) Encounter for supervision of other normal , unspecified trimester Substance use disorder Late menses Patient desires Irregular menstrual cycle Screening for cervical cancer Insomnia Nightmares Depression Family history of ovarian cancer Healthy female Family History Father Diabetes mellitus History of heart disease Hyperlipidemia Hypertension Mother Ovarian cancer Grandmother Diabetes mellitus Social History marital status: unmarried,single number of children: 1 household members: family and children lives independently: Yes housing: house pets and animals: Yes (cats, guinea pig, chihuahua - daughter to do litter box now) education level: college occupational status: employed current occupational exposures/hazards: No seatbelt use: always water heater temp set < 120 deg: Yes working smoke detector in home: Yes fire extinguisher in home: Yes carbon monox detector in home: Yes firearms in home: No do you feel safe at home: Yes Smoking Status: Current every day smoker quit status: considering quitting second hand exposure: No alcohol intake: former substance use type: former substance user and marijuana during the past year weight has: remained stable well-balanced diet: daily or most days daily servings fruits/ve-4 caffeine: Yes (going to now limit it to 200mg) Type(s) of exercise: irregular exercise Assessment & Plan Assessment & Plan narrative: 1. R pyelonephritis, with sepsis ruled out - continue ceftriaxone 2g q24 hours. - blood cultures and urine cultures pending - continue IV fluids, monitor BP - SOFA score of 1. Patient continues to have tachycardia despite adequate fluid boluses and antibiotic administration in the ER. There is also question of possible obstruction with R hydronephrosis, though no stones noted on CT imaging. 2. Hypokalemia and hyponatremia, improving - secondary to #1 above. Continue NS infusion at 100 cc per hour. K 3.3 and Na 133 on admission. - received po K repletion - daily BMP ordered 3. Bipolar disorder, stable - continue home medications of lexapro, hydroxyzine, olanzapine, oxcabazepine, and trazodone 4. History of substance use - last use recently of marijuana. Also with EtOH and tobacco use. - nicotine patch ordered - no prior history of alcohol withdrawal 5. Insomnia - pt had nightmares on 09/11 with her home trazodone - benadryl po PRN at bedtime 6. Migraine - patient having ongoing headache, with photophobia - improves some with imitrex - IV depakote 1g load to ablate migraine Code: Full surrogate is patient's mother. I have utilized all available immediate resources to obtain, update, or review the patient's current medications. DVT ppx: lovenox daily Dispo: Pending improvement in pyelo and urine/blood cx results. 1-2 days.
[2023-09-12] MEDS: VANCOMYCIN TROUGH 1 REQUEST MISC (14:00)
[2023-09-12 14:27] LABS: Vancomycin Trough 9.1 ug/mL (10-20)
--- NOTE | 2023-09-12 14:55 | CM.DPC ---
MAXX Cont. Reviewed EMR and team rounds for status updates. Pt's urine cultures remain pending, she continues on IV ABO's which have now been broadened with the hope that this helps resolve her infection more quickly. Anticipated a few more days before she is ready for d/c. Monitoring for d/c needs.
[2023-09-12] MEDS: VANCOMYCIN 1,500 MG/300 ML PIGGYBACK 200 MG IV ×2 (15:05→22:34)
[2023-09-12] MEDS: KETOROLAC 30 MG/ML VIAL IV (15:23)
[2023-09-12] MEDS: ONDANSETRON 4 MG/2 ML INJ IV (16:58)
[2023-09-13] VITALS (12 sets, daily range): BP systolic 108–147; BP diastolic 61–97; PULSE 85–112; RESP 16–22; TEMP 35.9–37.7; O2SAT 93–97
[2023-09-13] MEDS: CEFEPIME 2 GM in SODIUM CHLORIDE 0.9% 100 ML IV (00:20)
--- NOTE | 2023-09-13 00:41 | PC.NURSE ---
Pt stated to [employer] that she took a gummy with THC. Stated it was 10mg. Notified the doctor and just to monitor patient.
[2023-09-13] MEDS: ACETAMINOPHEN 325 MG TABLET 975 MG PO (02:39)
[2023-09-13] MEDS: SUMAtriptan 25 MG TABLET PO ×2 (03:46→08:19)
[2023-09-13 05:24] LABS: Add Manual Diff / Slide Review NO; Basophils Absolute Auto 0 /uL (0-100); Basophils Percent Auto 0.6 % (0-2); Eosinophils Absolute Auto 100 /uL (0-450); Eosinophils Percent Auto 1.2 % (2-4); Hematocrit 28.1 % (36-46); Hemoglobin 9.8 g/dL (12.0-16.0); Lymphocytes Absolute Auto 1100 /uL (1100-4500); Lymphocytes Percent Auto 13.5 % (25-40); Mean Corpuscular HGB Conc 34.8 % (30-36); Mean Corpuscular Hemoglobin 29.4 PG (26-34); Mean Corpuscular Volume 84.6 fL (80-100); Monocytes Absolute Auto 800 /uL (0-900); Monocytes Percent Auto 10.4 % (3-14); Neutrophils Absolute Auto 5900 /uL (1500-7000); Neutrophils Percent Auto 74.3 % (50-75); Platelet Count 331 X10^3/uL (150-400); Red Blood Cell Count 3.32 X10^6/uL (4.0-5.2); Red Cell Distribution Width 13.9 % (11.6-14.8); White Blood Cell Count 7.9 X10^3/uL (4.5-11.0)
[2023-09-13 05:38] LABS: Magnesium 1.7 mg/dL (1.6-2.3)
[2023-09-13 05:40] LABS: BUN Creatinine Ratio 13.7 (6-22); Blood Urea Nitrogen 7 mg/dL (7-17); Calcium 7.9 mg/dL (8.4-10.2); Carbon Dioxide 24 mmol/L (22-32); Chloride 107 mmol/L (98-107); Estimated Glomerular Filt Rate > 60 mL/min (>60); Glucose 93 mg/dL (70-100); HEMOLYSIS < 15 (0-50); Potassium 3.2 mmol/L (3.4-5.1); Sodium 136 mmol/L (137-145)
[2023-09-13] MEDS: ONDANSETRON 4 MG/2 ML INJ IV ×2 (05:40→17:11)
[2023-09-13 05:56] LABS: Procalcitonin 6.28 ng/mL (<0.5)
[2023-09-13] MEDS: VANCOMYCIN 1,500 MG/300 ML PIGGYBACK 200 MG IV (06:33)
[2023-09-13] MEDS: OXcarbazepine 150 MG TABLET 300 MG PO (08:12)
[2023-09-13] MEDS: MAGNESIUM SULFATE 2 GM/50 ML PIGGYBACK IV (08:12)
[2023-09-13] MEDS: metroNIDAZOLE 500 MG TABLET PO (08:12)
[2023-09-13] MEDS: OLANZapine 2.5 MG TABLET 5 MG PO (08:13)
[2023-09-13] MEDS: THIAMINE 100 MG TABLET PO (08:13)
[2023-09-13] MEDS: POTASSIUM CHLORIDE 20 MEQ TAB 40 MEQ PO (08:13)
[2023-09-13] MEDS: ESCITALOPRAM 10 MG TABLET 5 MG PO (08:13)
[2023-09-13] MEDS: KETOROLAC 30 MG/ML VIAL IV ×2 (10:18→20:08)
--- NOTE | 2023-09-13 10:26 | DI.CT.S_ITS ---
PROCEDURE: CT HEAD/BRAIN WO CON INDICATIONS: severe headache TECHNIQUE: Noncontrast 4.5 mm thick angled axial sections acquired from the foramen magnum to the vertex, with coronal and sagittal reformats. For radiation dose reduction, the following was used: automated exposure control, adjustment of mA and/or kV according to patient size. COMPARISON: None. FINDINGS: Image quality: Diagnostic CSF spaces: Lateral ventricles are symmetric. The basal cisterns are patent. Prominent chronic appearing CSF space in the posterior fossa. Volume: Generally maintained Brain: No intracranial hemorrhage. Bloom-white differentiation is grossly maintained. Craniofacial structures: No significant paranasal sinus opacity. No displaced fracture is identified. IMPRESSION: No acute intracranial abnormality. If there is high concern for parenchymal pathology, consider further evaluation with MRI. Dictated by: Audi Ornelas M.D. on 09/13/2023 at 10:58 Approved by: Audi Ornelas M.D. on 09/13/2023 at 10:59
--- NOTE | 2023-09-13 10:49 | CM.DPC ---
DCP Cont. Reviewed EMR for status updates. Pt c/o severe headache, that she hurts all over. Dr. Salas ordered a head CT to assess for etiology, she will most likely d/c tomorrow, 09/14/23. *Of note, pt told her RN that she took a 10mg THC gummy candy. This CANE LOADER expressed concern that she was taking cannabis while inpt, especially since she asks for pain medication and complains of severe pain frequently. Cont. to monitor.
--- NOTE | 2023-09-13 13:02 | P.PN_ITS ---
Subjective Subjective Interval history: Patient still having 10/10 headache. Says it is R-sided. CT head ordered. Nurse noted it was better last night after she got toradol. Exam Vital Signs (past 8 hours): - 09/13/23 07:00 09/13/23 08:10 09/13/23 08:15 Temperature 99.0 F Pulse Rate 112 H Respiratory Rate 18 Blood Pressure 137/86 Pulse Oximetry 95 95 Oxygen Delivery Method Nasal Cannula Nasal Cannula Oxygen Flow Rate 2 Fraction of Inspired Oxygen 09/13/23 10:46 09/13/23 11:00 09/13/23 12:00 Temperature 98.1 F Pulse Rate 110 H Respiratory Rate 22 Blood Pressure 127/82 Pulse Oximetry 97 97 96 Oxygen Delivery Method Nasal Cannula Nasal Cannula Oxygen Flow Rate 2 2 1.5 Fraction of Inspired Oxygen 28 Fraction of Inspired Oxygen 28 SaO2/FiO2 Ratio 346 Oxygen Delivery Method Nasal Cannula Oxygen Flow Rate 1.5 Narrative Exam Narrative: GEN: no acute distress, appears uncomfortable, doesn't open eyes HEENT: moist mucous membranes, PERRL NECK: trachea midline, no JVD CV: regular rate and rhythm, no murmurs PULM: clear bilaterally ABD: soft, nontender, nondistended, no organomegaly EXT: warm and well perfused with no edema NEURO: groggy, oriented, no focal deficits Objective Labs 09/13/23 05:02 09/13/23 05:02 Labs: Laboratory Results - last 24 hr 09/12/23 09/13/23 13:47 05:02 WBC 7.9 RBC 3.32 L Hgb 9.8 L Hct 28.1 L MCV 84.6 MCH 29.4 MCHC 34.8 RDW 13.9 Plt Count 331 Neut % (Auto) 74.3 Lymph % (Auto) 13.5 L [place] % (Auto) 10.4 Eos % (Auto) 1.2 L Baso % (Auto) 0.6 Neut # (Auto) 5900 Lymph # (Auto) 1100 [place] # (Auto) 800 Eos # (Auto) 100 Baso # (Auto) 0 Sodium 136 L Potassium 3.2 L Chloride 107 Carbon Dioxide 24 BUN 7 Creatinine 0.51 L Estimated GFR > 60 BUN/Creatinine Ratio 13.7 Glucose 93 Calcium 7.9 L Magnesium 1.7 Procalcitonin 6.28 H Vancomycin Trough 9.1 L PFSH Medical History Bipolar disorder, unspecified Encounter for IUD insertion (~05/07/23) Encounter for supervision of other normal , unspecified trimester Substance use disorder Late menses Patient desires Irregular menstrual cycle Screening for cervical cancer Insomnia Nightmares Depression Family history of ovarian cancer Healthy female Family History Father Diabetes mellitus History of heart disease Hyperlipidemia Hypertension Mother Ovarian cancer Grandmother Diabetes mellitus Social History marital status: unmarried,single number of children: 1 household members: family and children lives independently: Yes housing: house pets and animals: Yes (cats, guinea pig, chihuahua - daughter to do litter box now) education level: college occupational status: employed current occupational exposures/hazards: No seatbelt use: always water heater temp set < 120 deg: Yes working smoke detector in home: Yes fire extinguisher in home: Yes carbon monox detector in home: Yes firearms in home: No do you feel safe at home: Yes Smoking Status: Current every day smoker quit status: considering quitting second hand exposure: No alcohol intake: former substance use type: former substance user and marijuana during the past year weight has: remained stable well-balanced diet: daily or most days daily servings fruits/ve-4 caffeine: Yes (going to now limit it to 200mg) Type(s) of exercise: irregular exercise Assessment & Plan Assessment & Plan narrative: 1. R pyelonephritis, with sepsis ruled out - intially on ceftriaxone 2g q24 hours, broadened after patient had worsening HR concerning for sepsis - blood cultures and urine cultures very early growth - continue IV fluids, monitor BP - SOFA score of 1. Patient continues to have tachycardia despite adequate fluid boluses and antibiotic administration in the ER. There is also question of possible obstruction with R hydronephrosis, though no stones noted on CT imaging. - change abx to po levaquin 750mg daily - still waiting on urine culture results 2. Hypokalemia and hyponatremia, improving - secondary to #1 above. Continue NS infusion at 100 cc per hour. K 3.3 and Na 133 on admission. - received po K repletion - daily BMP ordered 3. Bipolar disorder, stable - continue home medications of lexapro, hydroxyzine, olanzapine, oxcabazepine, and trazodone 4. History of substance use - last use recently of marijuana. Also with EtOH and tobacco use. - nicotine patch ordered - no prior history of alcohol withdrawal 5. Insomnia - pt had nightmares on 09/11 with her home trazodone - benadryl po PRN at bedtime 6. Migraine - patient having ongoing headache, with photophobia - improves some with imitrex - IV depakote 1g load to ablate migraine - toradol IV PRN - fioricet PRN - head CT negative Code: Full surrogate is patient's mother. I have utilized all available immediate resources to obtain, update, or review the patient's current medications. DVT ppx: lovenox daily Dispo: Pending improvement in pyelo and urine/blood cx results. 1-2 days.
[2023-09-13] MEDS: BUTALB/APAP/CAFFEINE 50/325/40 TABLET 1 EACH PO ×3 (13:20→23:36)
[2023-09-13] MEDS: levoFLOXacin 250 MG TABLET 750 MG PO (13:27)
[2023-09-13] MEDS: SODIUM CHLORIDE 0.9% 1,000 ML 100 ML IV (14:23)
[2023-09-13] MEDS: diphenhydrAMINE 25 MG TABLET PO (23:57)
[2023-09-14 03:50] VITALS: BP 124/77; PULSE 85; RESP 16; TEMP 36.6; O2SAT 94
[2023-09-14 05:40] LABS: BUN Creatinine Ratio 9.3 (6-22); Blood Urea Nitrogen 4 mg/dL (7-17); Carbon Dioxide 33 mmol/L (22-32); Chloride 97 mmol/L (98-107); Estimated Glomerular Filt Rate > 60 mL/min (>60); Glucose 90 mg/dL (70-100); HEMOLYSIS < 15 (0-50); Potassium 3.3 mmol/L (3.4-5.1); Sodium 132 mmol/L (137-145)
[2023-09-14 05:57] LABS: Procalcitonin 2.38 ng/mL (<0.5)
[2023-09-14] MEDS: levoFLOXacin 250 MG TABLET 750 MG PO (06:17)
[2023-09-14] MEDS: OXcarbazepine 150 MG TABLET 300 MG PO (08:44)
[2023-09-14] MEDS: POTASSIUM CHLORIDE 20 MEQ TAB 40 MEQ PO (08:44)
[2023-09-14] MEDS: THIAMINE 100 MG TABLET PO (08:45)
[2023-09-14] MEDS: OLANZapine 2.5 MG TABLET 5 MG PO (08:45)
[2023-09-14] MEDS: ESCITALOPRAM 10 MG TABLET 5 MG PO (08:45)
[2023-09-14] MEDS: ACETAMINOPHEN 325 MG TABLET 975 MG PO (10:14)
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
--- NOTE | 2023-09-14 11:17 | PC.NURSE ---
Pt A&Ox4, VSS. c/o generalized pain with H/A, Tylenol given per pt request. IVs removed, tolerated well. Discharge information reviewed, patient able to teach back independently. Patient escorted downstairs in wheelchair by REID Brown/PCT and discharged home with ride from boyfriend.
--- NOTE | 2023-09-14 14:01 | CM.DPNOTE ---
DC Note Discharge home w/family today, close outpatient follow up recommended. No needs identified from this CM team. JAMI
== END 2023-09-14 11:05 | disposition home or self-care (01) | DRG 463 ==
LOC: ED 14:13 → AC 14:16
PROVIDERS: Student in an Organized Health Care Education/Training Program; Admitting Provider Internal Medicine; Emergency Provider Emergency Medicine; PCP Registered Nurse Diabetes Educator; Referring Provider Emergency Medicine; Visit Provider Internal Medicine
DX: N13.6 Pyonephrosis (principal); E87.1 Hypo-osmolality and hyponatremia; E87.6 Hypokalemia; F31.9 Bipolar disorder, unspecified; F17.210 Nicotine dependence, cigarettes, uncomplicated; G47.00 Insomnia, unspecified; G43.909 Migraine, unspecified, not intractable, without status migrainosus
CPT/HCPCS: 36415; 70450; 71045; 74018; 74176; 80048; 80053; 80202; 81001; 81025; 83605; 83690; 83735; 84145; 85025; 85610; 85730; 87040; 87086; 93005; 94760; 96365; 96368; 96375; 99284; 99285; J0131; J0692; J0696; J1650; J1885; J2405; J3475

== ENCOUNTER → 2023-12-09 11:24 | Outpatient (CLI) | payer OTHER, MEDICAID, SELFPAY ==
[2023-09-10 15:02] VITALS: BMI 25.7
--- NOTE | 2023-12-09 11:25 | DI.US.S_ITS ---
PROCEDURE: US OB <= 14 WEEKS FETUS INDICATIONS: dating and viability OUTSIDE/PRIOR DATING DATA: Last menstrual period (LMP): 10/08/2023. LMP-based estimated date of delivery (BIA): 07/15/2024. First dating scan (date and location): 12/09/2023. Estimated date of delivery (BIA) from first dating scan: 07/14/2024. TECHNIQUE: Real-time scanning was performed of the fetus and maternal pelvic organs, with image documentation. Endovaginal scanning was also performed to better visualize the fetus and maternal ovaries. COMPARISON: None. FINDINGS: Embryo: 1.9 cm, 8 weeks 3 days Heart rate: 173 beats per minute Maternal organs: Ovaries are unremarkable. Corpus luteum not seen.. IMPRESSION: Living 1st trimester intrauterine measuring 8 weeks 3 days by crown-rump length measurement with no sonographic evidence of complications. We strive to produce accurate, complete, and clear reports of imaging services. To assist us in improving patient care, this report was composed using standard report templates and voice recognition software. Therefore, it may contain abnormal punctuation, insertions and/or omissions. Occasional wrong-word or sound-alike substitutions may occur. Though we review the report and make efforts to correct it, we do recommend that the report be read carefully in proper context to recognize any text inaccuracies. Dictated by: Travis Davis M.D. on 12/10/2023 at 7:36 Approved by: Travis Davis M.D. on 12/10/2023 at 7:38
== END ==
LOC: US 11:25
PROVIDERS: PCP Registered Nurse Diabetes Educator; Referring Provider Obstetrics & Gynecology; Visit Provider Obstetrics & Gynecology
DX: Z34.81 Encounter for supervision of other normal pregnancy, first trimester (principal); Z3A.08 8 weeks gestation of pregnancy
CPT/HCPCS: 76801; 76817

== ENCOUNTER → 2024-01-06 11:43 | Outpatient (CLI) | payer OTHER, MEDICAID, SELFPAY ==
[2023-09-10 15:02] VITALS: BMI 25.7
[2024-01-06 12:15] LABS: Add Manual Diff / Slide Review NO; Basophils Absolute Auto 0 /uL (0-100); Basophils Percent Auto 0.3 % (0-2); Eosinophils Absolute Auto 100 /uL (0-450); Eosinophils Percent Auto 0.9 % (2-4); Hematocrit 34.5 % (36-46); Hemoglobin 11.8 g/dL (12.0-16.0); Lymphocytes Absolute Auto 2100 /uL (1100-4500); Mean Corpuscular HGB Conc 34.1 % (30-36); Mean Corpuscular Hemoglobin 29.4 PG (26-34); Mean Corpuscular Volume 86.3 fL (80-100); Monocytes Absolute Auto 400 /uL (0-900); Monocytes Percent Auto 5.1 % (3-14); Neutrophils Absolute Auto 4700 /uL (1500-7000); Neutrophils Percent Auto 64.7 % (50-75); Platelet Count 340 X10^3/uL (150-400); Red Cell Distribution Width 13.7 % (11.6-14.8); White Blood Cell Count 7.2 X10^3/uL (4.5-11.0)
[2024-01-06 12:24] LABS: Hemoglobin A1C% w Est Avg Glu 5.4 % (4.0-6.0)
[2024-01-06 13:03] LABS: Thyroid Stimulating Hormone 1.35 uIU/mL (0.47-4.68)
[2024-01-06 13:05] LABS: Hepatitis B Surface Antigen NEGATIVE s/c (NEGATIVE)
[2024-01-06 13:21] LABS: HIV 1 & 2 Ab/Ag 4th Gen Combo NEGATIVE (NEGATIVE); Hep C Virus Ab w/Reflex Quant NEGATIVE s/c (NEGATIVE)
[2024-01-06 13:59] LABS: Alanine Aminotransferase 13 IU/L (<35); Albumin 4.3 g/dL (3.5-5.0); Albumin Globulin Ratio 1.5 (1.0-2.8); Alkaline Phosphatase 43 U/L (38-126); Aspartate Aminotransferase 21 IU/L (14-36); BUN Creatinine Ratio 17.8 (6-22); Bilirubin Total 0.3 mg/dL (0.2-1.3); Blood Urea Nitrogen 8 mg/dL (7-17); Calcium 8.7 mg/dL (8.4-10.2); Carbon Dioxide 25 mmol/L (22-32); Chloride 106 mmol/L (98-107); Estimated Glomerular Filt Rate > 60 mL/min (>60); Globulin 2.8 g/dL (1.7-4.1); Glucose 83 mg/dL (70-100); HEMOLYSIS < 15 (0-50); Potassium 3.8 mmol/L (3.4-5.1); Sodium 134 mmol/L (137-145); Total Protein 7.1 g/dL (6.3-8.2)
[2024-01-06 14:00] LABS: Natera Collection Specimen Collected
[2024-01-07 08:22] LABS: RPR Screen Non Reactive (Non Reactive)
[2024-01-07 11:36] LABS: Varicella IgG Antibody 727 index (Immune >165)
== END ==
PROVIDERS: PCP Registered Nurse Diabetes Educator; Referring Provider Obstetrics & Gynecology; Visit Provider Obstetrics & Gynecology
DX: Z34.81 Encounter for supervision of other normal pregnancy, first trimester (principal); G47.00 Insomnia, unspecified; F41.1 Generalized anxiety disorder; F31.63 Bipolar disorder, current episode mixed, severe, without psychotic features; Z79.899 Other long term (current) drug therapy; Z3A.12 12 weeks gestation of pregnancy
CPT/HCPCS: 36415; 80053; 80055; 83036; 84439; 84443; 86787; 86803; 86850; 86900; 86901; 87389

== ENCOUNTER → 2024-01-22 12:27 | Outpatient (CLI) | payer OTHER, MEDICAID, SELFPAY ==
[2023-09-10 15:02] VITALS: BMI 25.7
[2024-01-22 14:24] LABS: Urine N gonorrhoeae NOT DETECTED
[2024-01-22 14:43] LABS: Urine Chlamydia NOT DETECTED
== END ==
PROVIDERS: PCP Registered Nurse Diabetes Educator; Referring Provider Obstetrics & Gynecology; Visit Provider Obstetrics & Gynecology
DX: Z34.80 Encounter for supervision of other normal pregnancy, unspecified trimester (principal); Z34.01 Encounter for supervision of normal first pregnancy, first trimester
CPT/HCPCS: 87086; 87491; 87591

== ENCOUNTER → 2024-02-12 12:14 | Outpatient (CLI) | payer OTHER, MEDICAID, SELFPAY ==
[2023-09-10 15:02] VITALS: BMI 25.7
== END ==
PROVIDERS: PCP Registered Nurse Diabetes Educator; Referring Provider Obstetrics & Gynecology; Visit Provider Obstetrics & Gynecology
DX: Z34.82 Encounter for supervision of other normal pregnancy, second trimester (principal); Z3A.16 16 weeks gestation of pregnancy
CPT/HCPCS: 36415; 82105

== ENCOUNTER → 2024-03-10 15:22 | Outpatient (CLI) | payer OTHER, MEDICAID, SELFPAY ==
[2023-09-10 15:02] VITALS: BMI 25.7
--- NOTE | 2024-03-10 15:23 | DI.US.S_ITS ---
PROCEDURE: US OB >= 14 WEEKS FETUS INDICATIONS: Anatomy Scan OUTSIDE/PRIOR DATING DATA: Last menstrual period (LMP): 10/08/2023. LMP-based estimated date of delivery (BIA): 07/15/2024. First dating scan (date and location): 12/09/2023. Estimated date of delivery (BIA) from first dating scan: 07/14/24. TECHNIQUE: Real-time scanning was performed of the fetus, with image documentation and biometric measurements. COMPARISON: [facility], OB <= 14 WEEKS FETUS, 12/09/2023, 11:37. [facility], OB >= 14 WEEKS FETUS, 04/02/2022, 15:41. FINDINGS: General: A single living intrauterine gestation is present. Presentation: Vertex. Placenta: Placental position is anterior, without previa. Amniotic fluid index: 12.8 cm, normal range is 5-24 cm. Single deepest vertical pocket is 4.1 cm. heart rate: 160 beats per minute. Maternal cervical canal: 3.6 cm long. Normal lower limit is 2.5 cm. biometrics: Biparietal diameter: 21 weeks 3 days Head circumference: 21 weeks 4 days Abdominal circumference: 22 weeks 5 days Femur length: 22 weeks 0 day Clinically estimated gestational age: 21 weeks 6 days Composite gestational age from present scan: 22 weeks 0 day Estimated weight and percentile: 488 g; 65% for gestational age. Anatomic survey: Neuro: Ventricles are non-dilated at less than 10 mm. Cisterna magna is normal at 3-11 mm. Cerebellum is normal in size and morphology. Nuchal skin fold: Not well seen. Normal at less than 6 mm between 14-21 weeks gestational age. Face: Nose and lips, facial profile are normal. Spine: Suboptimally visualized due to lie. Heart: 4-chambered heart is present, with normal ventricular outflow tracts. Diaphragm: Diaphragm is intact. Stomach: Left-sided stomach is present. Kidneys: No hydronephrosis. Normal is less than 5 mm in 2nd trimester, less than 7 mm in 3rd trimester. Cord: 3-vessel cord has orthotopic insertion. Bladder: Normal in size. Extremities: All 4 extremities identified. IMPRESSION: 1. A single living IUP with appropriate interval growth. 2. spine not well seen. Otherwise normal anatomic survey. We strive to produce accurate, complete, and clear reports of imaging services. To assist us in improving patient care, this report was composed using standard report templates and voice recognition software. Therefore, it may contain abnormal punctuation, insertions and/or omissions. Occasional wrong-word or sound-alike substitutions may occur. Though we review the report and make efforts to correct it, we do recommend that the report be read carefully in proper context to recognize any text inaccuracies. Dictated by: Maryam Harris M.D. on 03/11/2024 at 7:35 Approved by: Maryam Harris M.D. on 03/11/2024 at 7:40
== END ==
PROVIDERS: PCP Registered Nurse Diabetes Educator; Referring Provider Obstetrics & Gynecology; Visit Provider Obstetrics & Gynecology
DX: Z34.82 Encounter for supervision of other normal pregnancy, second trimester (principal); Z3A.22 22 weeks gestation of pregnancy
CPT/HCPCS: 76811

== ENCOUNTER → 2024-04-26 12:15 | Outpatient (CLI) | payer OTHER, MEDICAID, SELFPAY ==
[2023-09-10 15:02] VITALS: BMI 25.7
[2024-04-26 13:53] LABS: Hematocrit 30.9 % (36-46); Hemoglobin 10.8 g/dL (12.0-16.0)
[2024-04-26 14:12] LABS: GTT (PREG) 1 Hour PP 50gm Dose 117 mg/dL (76-139)
== END ==
PROVIDERS: PCP Registered Nurse Diabetes Educator; Referring Provider Obstetrics & Gynecology; Visit Provider Obstetrics & Gynecology
DX: Z34.83 Encounter for supervision of other normal pregnancy, third trimester (principal); Z13.0 Encounter for screening for diseases of the blood and blood-forming organs and certain disorders involving the immune mechanism; Z13.1 Encounter for screening for diabetes mellitus; Z3A.26 26 weeks gestation of pregnancy
CPT/HCPCS: 36415; 82950; 85014; 85018

== ENCOUNTER 2024-05-02 19:14 | Observation (INO) | payer OTHER, MEDICAID, SELFPAY ==
[2023-09-10 15:02] VITALS: BMI 25.7
[2024-05-02] VITALS (12 sets, daily range): BP systolic 116–130; BP diastolic 62–79; PULSE 102–130; RESP 16–18; TEMP 36.7; O2SAT 91–98; BMI 35.2
[2024-05-02 19:56] LABS: COVID19 -Nasal RAPID Negative (Negative)
[2024-05-02 19:56] LABS: Add Manual Diff / Slide Review NO; Basophils Absolute Auto 0 /uL (0-100); Basophils Percent Auto 0.2 % (0-2); Eosinophils Absolute Auto 0 /uL (0-450); Eosinophils Percent Auto 0.1 % (2-4); Hematocrit 30.7 % (36-46); Hemoglobin 10.8 g/dL (12.0-16.0); Lymphocytes Absolute Auto 800 /uL (1100-4500); Lymphocytes Percent Auto 9.6 % (25-40); Mean Corpuscular HGB Conc 35.1 % (30-36); Mean Corpuscular Volume 88.3 fL (80-100); Monocytes Absolute Auto 500 /uL (0-900); Monocytes Percent Auto 5.6 % (3-14); Neutrophils Absolute Auto 6900 /uL (1500-7000); Neutrophils Percent Auto 84.5 % (50-75); Platelet Count 260 X10^3/uL (150-400); Red Blood Cell Count 3.47 X10^6/uL (4.0-5.2); Red Cell Distribution Width 13.5 % (11.6-14.8); White Blood Cell Count 8.2 X10^3/uL (4.5-11.0)
[2024-05-02] MEDS: ONDANSETRON 4 MG/2 ML INJ IV (19:59)
[2024-05-02] MEDS: SODIUM CHLORIDE 0.9% 1,000 ML 1000 ML IV ×2 (19:59→22:14)
[2024-05-02] MEDS: ACETAMINOPHEN IV 1,000 MG/100 ML VIAL 400 MG IV (19:59)
[2024-05-02 20:06] LABS: Alanine Aminotransferase 15 IU/L (<35); Albumin 3.7 g/dL (3.5-5.0); Albumin Globulin Ratio 1.3 (1.0-2.8); Alkaline Phosphatase 69 U/L (38-126); Aspartate Aminotransferase 22 IU/L (14-36); BUN Creatinine Ratio 18.2 (6-22); Bilirubin Total 0.7 mg/dL (0.2-1.3); Blood Urea Nitrogen 8 mg/dL (7-17); Calcium 8.4 mg/dL (8.4-10.2); Carbon Dioxide 17 mmol/L (22-32); Chloride 106 mmol/L (98-107); Estimated Glomerular Filt Rate > 60 mL/min (>60); Globulin 2.9 g/dL (1.7-4.1); Glucose 105 mg/dL (70-100); HEMOLYSIS < 15 (0-50); Potassium 3.2 mmol/L (3.4-5.1); Sodium 133 mmol/L (137-145); Total Protein 6.6 g/dL (6.3-8.2)
--- NOTE | 2024-05-02 22:02 | ED.NAVMDI ---
HPI - Nausea/Vomiting/Diarrhea General Chief complaint: Nausea/Vomiting/Diarrhea Stated complaint: 30 weeks , unable to keep anything down Time Seen by Provider: 05/02/24 22:03 Source: patient Mode of arrival: Ambulatory History of Present Illness HPI Narrative: Patient 33-year-old female currently 30 weeks presenting today with diarrhea vomiting. She reports she is unable to keep anything down she has gross green liquid stool and multiple episodes of vomiting for the last 24 hours. He has no abdominal pain dizziness or lightheadedness. She has not had any fever. She just generally does not feel well. She has been receiving care with Dr. Penn, no -related issues. Denies any vaginal bleeding or discharge Related Data Previous Rx's Medication Instructions Recorded thiamine HCl (vitamin B1) 100 mg 100 mg PO DAILY #90 tabs 06/27/23 tablet folic acid 1 mg tablet 1 mg PO DAILY #90 tabs 11/24/23 vitamin with calcium 1 tab PO DAILY #90 tabs 11/24/23 no.72-iron 27 mg-folic acid 1 mg tablet (M-Allyson Plus) ferrous sulfate 325 mg (65 mg 325 mg PO DAILY #90 tabs 01/06/24 iron) tablet olanzapine 5 mg tablet 5 mg PO DAILY #90 tabs 01/06/24 oxcarbazepine 300 mg tablet 300 mg PO DAILY #90 tabs 01/06/24 Allergies Allergy/AdvReac Type Severity Reaction Status Date / Time doxycycline [DOXYCYCLINE] Allergy Intermediate Hives Verified 04/27/24 15:08 Patient History Medical History Substance abuse in remission Pyelonephritis (~2022) Sepsis (~2022) PID (acute pelvic inflammatory disease) (~2022) Severe auditory hallucinations anxiety Anemia Anovulation Nightmares Cervical dysplasia Encounter for IUD insertion (~05/07/23) Encounter for supervision of other normal , unspecified trimester Surgical History [place] teeth extracted (~2017) History of cholecystectomy History of gynecologic surgery (~2012) Family History Father Diabetes mellitus History of heart disease Hyperlipidemia Hypertension Mother Ovarian cancer Multiple sclerosis Colostomy in place Grandmother Diabetes mellitus Aunt Breast cancer Social History marital status: unmarried,living together number of children: 3 (includes partner's daughter; also sometimes his other child stays on weekends) household members: children lives independently: Yes caregiver/support person: Yes housing: house (separate house on parent's property) pets and animals: Yes (cats, les - daughter to do litter box now) education level: college (some college) occupational status: employed current occupational exposures/hazards: No special antoni needs: No travel history: over 6 months ago seatbelt use: always helmet use: No water heater temp set < 120 deg: Yes working smoke detector in home: Yes fire extinguisher in home: No carbon monox detector in home: Yes firearms in home: No do you feel safe at home: Yes in current or past relationships, have you been: threatened and made to feel afraid Smoking Status: Current some day smoker Tobacco: How many years used: 9 (Started age 24) quit status: considering quitting second hand exposure: No alcohol intake: former substance use type: former substance user and marijuana (not recently) during the past year weight has: other (fluctuates) well-balanced diet: daily or most days daily servings fruits/ve-4 caffeine: Yes (going to now limit it to 200mg) Type(s) of exercise: none Smoking Status: Current some day smoker alcohol intake frequency: other Alcohol type: other Substance Use Type: former substance user, marijuana and methamphetamine Exam Initial Vital Signs Initial Vital Signs: Vital Signs Temperature 98.0 F 05/02/24 19:23 Pulse Rate 130 H 05/02/24 19:23 Respiratory Rate 16 05/02/24 19:23 Blood Pressure 130/79 05/02/24 19:23 Pulse Oximetry 97 05/02/24 19:23 Oxygen Delivery Method Room Air 05/02/24 19:23 GENERAL: Alert 33-year-old female appears to not feel well HEENT: Head atraumatic,EOMI, pupils reactive, face symmetric, drymucous membranes CARDIOVASCULAR: Regular rate and rhythm without murmurs, rubs or gallops. RESPIRATORY: Breath sounds equal bilaterally, no wheezes rales or rhonchi. ABDOMEN: Soft, gravid nontender soft : No CVA tenderness EXTREMITIES: Normal range of motion, no clubbing or edema. Neurovascularly intact NEUROLOGICAL: Alert and oriented x4.Normal gait and speech. Cranial nerves II through XII grossly intact. SKIN: Warm, dry, no laceration, no petechiae, no rashes or lesions. Course Orders Ordered: ED Orders 05/02/24 19:30 GI Panel (Film Array) Stat 05/02/24 19:41 COVID19 -Nasal RAPID Stat 05/02/24 19:50 Complete Blood Count AUTO DIFF Stat Comprehensive Metabolic Panel Stat Lactate (Lactic Acid) Stat Lipase Stat Acetaminophen (Acetaminophen 325 Mg Tablet) 650 mg PO Q6HR PRN PRN Reason: Fever/Mild Pain (1-3) Sodium Chloride (Normal Saline 0.9%) 1,000 mls @ 125 mls/hr IV CONT LUTHER Last Admin: 05/03/24 03:11 Dose: 125 mls/hr Documented By: VASU Ondansetron HCl (Ondansetron 4 Mg/2 Ml Inj) 4 mg IV Q4HR PRN PRN Reason: Nausea And Vomiting Last Admin: 05/03/24 03:11 Dose: 4 mg Documented By: VASU Discontinued Medications Sodium Chloride (Normal Saline 0.9%) 1,000 mls @ 1,000 mls/hr IV BOLUS ONE Stop: 05/02/24 20:29 Last Infusion: 05/02/24 20:53 Dose: Infused Documented By: Admin: 05/02/24 19:59 Dose: 1,000 mls/hr Documented By: VIK Acetaminophen (Ofirmev) 1,000 mg in 100 mls @ 400 mls/hr IV NOW ONE Stop: 05/02/24 20:02 Last Infusion: 05/02/24 20:22 Dose: Infused Documented By: Admin: 05/02/24 19:59 Dose: 400 mls/hr Documented By: VIK Sodium Chloride (Normal Saline 0.9%) 1,000 mls @ 1,000 mls/hr IV BOLUS ONE Stop: 05/02/24 23:02 Last Infusion: 05/02/24 23:00 Dose: Infused Documented By: Admin: 05/02/24 22:14 Dose: 1,000 mls/hr Documented By: VIK Lactated Ringer's (Lactated Ringers) 1,000 mls @ 1,000 mls/hr IV BOLUS ONE Stop: 05/02/24 23:49 Last Infusion: 05/02/24 23:46 Dose: Infused Documented By: Admin: 05/02/24 23:00 Dose: 1,000 mls/hr Documented By: Metoclopramide HCl (Metoclopramide 10 Mg/2 Ml Inj) 10 mg IV NOW ONE Stop: 05/02/24 22:04 Last Admin: 05/02/24 22:14 Dose: 10 mg Documented By: VIK Ondansetron HCl (Ondansetron 4 Mg/2 Ml Inj) 4 mg IV NOW ONE Stop: 05/02/24 19:31 Last Admin: 05/02/24 19:59 Dose: 4 mg Documented By: VIK Vital Signs Vital signs: Vital Signs - 8 hr 05/02/24 20:30 05/02/24 20:30 05/02/24 20:59 Pulse Rate 108 H 114 H Respiratory Rate Blood Pressure 128/65 Pulse Oximetry 94 95 Oxygen Delivery Method 05/02/24 21:00 05/02/24 21:00 05/02/24 21:31 Pulse Rate 108 H 113 H Respiratory Rate Blood Pressure 123/62 Pulse Oximetry 91 98 Oxygen Delivery Method 05/02/24 22:00 05/02/24 22:30 05/02/24 23:00 Pulse Rate 112 H 112 H 110 H Respiratory Rate Blood Pressure Pulse Oximetry 98 94 94 Oxygen Delivery Method 05/02/24 23:30 05/03/24 00:00 05/03/24 00:30 Pulse Rate 102 H 116 H 120 H Respiratory Rate 18 18 Blood Pressure Pulse Oximetry 94 95 94 Oxygen Delivery Method Room Air MDM - Nausea/Vomiting/Diarrhea Lab Data 05/02/24 19:50 05/02/24 19:50 Labs: Lab Results 05/02/24 05/02/24 Range/Units 19:41 19:50 WBC 8.2 (4.5-11.0) X10^3/uL RBC 3.47 L (4.0-5.2) X10^6/uL Hgb 10.8 L (12.0-16.0) g/dL Hct 30.7 L (36-46) % MCV 88.3 (80-100) fL MCH 31.0 (26-34) PG MCHC 35.1 (30-36) % RDW 13.5 (11.6-14.8) % Plt Count 260 (150-400) X10^3/uL Neut % (Auto) 84.5 H (50-75) % Lymph % (Auto) 9.6 L (25-40) % [place] % (Auto) 5.6 (3-14) % Eos % (Auto) 0.1 L (2-4) % Baso % (Auto) 0.2 (0-2) % Neut # (Auto) 6900 (8934-6218) /uL Lymph # (Auto) 800 L (2649-1190) /uL [place] # (Auto) 500 (0-900) /uL Eos # (Auto) 0 (0-450) /uL Baso # (Auto) 0 (0-100) /uL Sodium 133 L (137-145) mmol/L Potassium 3.2 L (3.4-5.1) mmol/L Chloride 106 (98-107) mmol/L Carbon Dioxide 17 L (22-32) mmol/L BUN 8 (7-17) mg/dL Creatinine 0.44 L (0.52-1.04) mg/dL Estimated GFR > 60 (>60) mL/min BUN/Creatinine Ratio 18.2 (6-22) Glucose 105 H (70-100) mg/dL Lactate 1.0 (0.7-2.1) mmol/L Calcium 8.4 (8.4-10.2) mg/dL Total Bilirubin 0.7 (0.2-1.3) mg/dL AST 22 (14-36) IU/L ALT 15 (<35) IU/L Alkaline Phosphatase 69 (38-126) U/L Total Protein 6.6 (6.3-8.2) g/dL Albumin 3.7 (3.5-5.0) g/dL Globulin 2.9 (1.7-4.1) g/dL Albumin/Globulin Ratio 1.3 (1.0-2.8) Lipase 87 (23-300) U/L SARS-CoV-2 (PCR) Negative (Negative) Urine Dip Bedside Urine Glucose Negative Bedside Urine Bilirubin - Negative Bedside Urine Ketone ++ 40 Urine Specific [place] 1.010 Bedside Urine Occult Blood - Negative Bedside Urine pH 6.0 Bedside Urine Protein - Negative Bedside Urine Urobilinogen - Negative Bedside Urine Nitrite - Negative Bedside Urine Leukocytes - Negative Esterase MDM Narrative Medical decision making narrative: MDM CC: Vomiting and diarrhea Complicating co-morbidities: 30 weeks Medical records reviewed: OB notes Differential considered: Gastroenteritis, sepsis UTI Exam documented above, pertinent findings include: Persistent tachycardia abdomen soft nontender Lab Test results independently reviewed as above. Pertinent findings: WBC 8.2 hemoglobin 10.8 hematocrit 30.7 platelets 260, sodium 133 potassium 3.2 chloride 106 carbon dioxide 17 BUN 8 creatinine 0.4 glucose 105, lactate 1.0 bili 0.7 AST 22 ALT 15 alk-phos 69 Imaging studies independently reviewed:none Consultations: Dr. Valdes OB on-call updated patient's symptoms test results states the L&D is on divert but okay if patient goes to the floor Treatments: IV fluids, Zofran Tylenol Reglan Re-evaluations: After 2 L of IV fluids patient heart rate is still consistently greater than 110 which is an improvement from 10/14. She is mildly hypokalemic no longer having vomiting she has not had any diarrhea in the ED after numerous hours she has no abdominal pain Discussion: Patient 33-year-old female currently 30 weeks presenting with gastroenteritis like symptoms. Multiple episodes of diarrhea and vomiting. Found to be mildly hypokalemic no evidence of GRACIE. Persistently tachycardic in the ED despite IV fluids and Tylenol. Not in significant amount of pain. heart tones noted to be 160 Discharge Plan Departure Patient Disposition: Admitted as Observation Clinical Impression: Gastroenteritis Admit Date/Time: 05/03/24 01:33 Admit Provider: Marisela Valdes
[2024-05-02] MEDS: METOCLOPRAMIDE 10 MG/2 ML INJ IV (22:14)
[2024-05-02] MEDS: LACTATED RINGERS 1,000 ML 1000 ML IV (23:00)
[2024-05-02 23:13] LABS: Lipase 87 U/L (23-300)
[2024-05-03] VITALS (9 sets, daily range): BP systolic 108–127; BP diastolic 53–73; PULSE 94–120; RESP 16–18; TEMP 36–37; O2SAT 94–98; BMI 35.2
--- NOTE | 2024-05-03 00:29 | PC.NURSE ---
Slight nausea around 11 pm but after liter of LR pt appears to be resting on left side (sleeping). Will allow to rest until pt requires intervention next.
[2024-05-03] MEDS: ONDANSETRON 4 MG/2 ML INJ IV (03:11)
[2024-05-03] MEDS: SODIUM CHLORIDE 0.9% 1,000 ML 125 ML IV ×2 (03:11→11:30)
--- NOTE | 2024-05-03 05:44 | PM.GYNHP.1 ---
History of Present Illness History of Present Illness Reason for admission: other Narrative: Christal Jacques is a 33 year old G 3 P 2 EDC 07/15 at 29w 4d admitted for gastro enteritis. She had significant emesis and diarrhea starting on 05/02/2024. The patient presented to the emergency room where she was giving IV fluids and antinausea medication but had persistent tachycardia. Decision made to admit the patient to the hospital for continued IV fluids after what was given in the emergency room. [facility] Medical History Substance abuse in remission Pyelonephritis (~2022) Sepsis (~2022) PID (acute pelvic inflammatory disease) (~2022) Severe auditory hallucinations anxiety Anemia Anovulation Nightmares Cervical dysplasia Encounter for IUD insertion (~05/07/23) Encounter for supervision of other normal , unspecified trimester Surgical History [place] teeth extracted (~2017) History of cholecystectomy History of gynecologic surgery (~2012) Family History Father Diabetes mellitus History of heart disease Hyperlipidemia Hypertension Mother Ovarian cancer Multiple sclerosis Colostomy in place Grandmother Diabetes mellitus Aunt Breast cancer Social History marital status: unmarried,living together number of children: 3 (includes partner's daughter; also sometimes his other child stays on weekends) household members: children lives independently: Yes caregiver/support person: Yes housing: house (separate house on parent's property) pets and animals: Yes (cats, chihuahua - daughter to do litter box now) education level: college (some college) occupational status: employed current occupational exposures/hazards: No special antoni needs: No travel history: over 6 months ago seatbelt use: always helmet use: No water heater temp set < 120 deg: Yes working smoke detector in home: Yes fire extinguisher in home: No carbon monox detector in home: Yes firearms in home: No do you feel safe at home: Yes in current or past relationships, have you been: threatened and made to feel afraid Smoking Status: Current some day smoker Tobacco: How many years used: 9 (Started age 24) quit status: considering quitting second hand exposure: No alcohol intake: former substance use type: former substance user and marijuana (not recently) during the past year weight has: other (fluctuates) well-balanced diet: daily or most days daily servings fruits/ve-4 caffeine: Yes (going to now limit it to 200mg) Type(s) of exercise: none Meds Home Medications and Allergies Home Medications Medication Instructions Recorded Confirmed Type thiamine HCl (vitamin B1) 100 mg 100 mg PO DAILY #90 tabs 06/27/23 05/03/24 Rx tablet folic acid 1 mg tablet 1 mg PO DAILY #90 tabs 11/24/23 05/03/24 Rx vitamin with calcium 1 tab PO DAILY #90 tabs 11/24/23 05/03/24 Rx no.72-iron 27 mg-folic acid 1 mg tablet (M- Plus) ferrous sulfate 325 mg (65 mg 325 mg PO DAILY #90 tabs 01/06/24 05/03/24 Rx iron) tablet olanzapine 5 mg tablet 5 mg PO DAILY #90 tabs 01/06/24 05/03/24 Rx oxcarbazepine 300 mg tablet 300 mg PO DAILY #90 tabs 01/06/24 05/03/24 Rx Allergies Allergy/AdvReac Type Severity Reaction Status Date / Time doxycycline [DOXYCYCLINE] Allergy Intermediate Hives Verified 04/27/24 15:08 Review of Systems Review of Systems Narrative: Patient has some headaches. No scotomata. Patient denies epigastric pain. Good movement. No fevers. No vaginal bleeding. Emesis and diarrhea for the last 24+ hours. Exam Vital Signs (past 8 hours): - 05/02/24 22:00 05/02/24 22:30 05/02/24 23:00 Temperature Pulse Rate 112 H 112 H 110 H Respiratory Rate Blood Pressure Pulse Oximetry 98 94 94 Oxygen Delivery Method Oxygen Flow Rate 05/02/24 23:30 05/03/24 00:00 05/03/24 00:30 Temperature Pulse Rate 102 H 116 H 120 H Respiratory Rate 18 18 Blood Pressure Pulse Oximetry 94 95 94 Oxygen Delivery Method Room Air Oxygen Flow Rate 05/03/24 02:31 05/03/24 03:19 Temperature 98.6 F 97.6 F Pulse Rate 115 H 112 H Respiratory Rate 18 18 Blood Pressure 109/55 L 118/56 L Pulse Oximetry 97 96 Oxygen Delivery Method Room Air Oxygen Flow Rate 0 Oxygen Delivery Method Room Air Oxygen Flow Rate 0 Narrative Exam Narrative: HEENT exam within normal limits. Lungs are clear to auscultation percussion. No thyromegaly. Heart is tachycardic regular rate and rhythm. Abdomen is gravid and nontender. Size consistent with dates. Extremities without edema and nontender. FHTs 160 in the emergency room. Objective Labs 05/02/24 19:50 05/02/24 19:50 Labs: Laboratory Results - last 24 hr 05/02/24 05/02/24 19:41 19:50 WBC 8.2 RBC 3.47 L Hgb 10.8 L Hct 30.7 L MCV 88.3 MCH 31.0 MCHC 35.1 RDW 13.5 Plt Count 260 Neut % (Auto) 84.5 H Lymph % (Auto) 9.6 L [place] % (Auto) 5.6 Eos % (Auto) 0.1 L Baso % (Auto) 0.2 Neut # (Auto) 6900 Lymph # (Auto) 800 L [place] # (Auto) 500 Eos # (Auto) 0 Baso # (Auto) 0 Sodium 133 L Potassium 3.2 L Chloride 106 Carbon Dioxide 17 L BUN 8 Creatinine 0.44 L Estimated GFR > 60 BUN/Creatinine Ratio 18.2 Glucose 105 H Lactate 1.0 Calcium 8.4 Total Bilirubin 0.7 AST 22 ALT 15 Alkaline Phosphatase 69 Total Protein 6.6 Albumin 3.7 Globulin 2.9 Albumin/Globulin Ratio 1.3 Lipase 87 SARS-CoV-2 (PCR) Negative Assessment & Plan Assessment and plan (1) Gastroenteritis: Status: Acute (2) 29 weeks gestation of : Status: Acute (3) Tachycardia determined by examination of pulse: Status: Acute Assessment & Plan narrative: Patient with gastroenteritis at 29 weeks 4 days' gestation with tachycardia. Patient receiving IV fluids and antinausea medication. Home after patient is stable with regular diet and decrease in pulse. Time-Based Coding :: [TOTAL MINUTES] spent with patient and on the chart (including review of chart, obtaining history, exam, reviewing outside data, placing orders, documenting exam and treatment plan, and counseling patient) on [DATE]. Quality VTE Deep Vein Thrombosis/Pulmonary Embolism Present on Admission: No
[2024-05-03 06:36] LABS: Adenovirus F 40/41 Not Detected (Not Detect); Astrovirus Not Detected (Not Detect); Campylobacter Not Detected (Not Detect); Clostridium difficile toxin AB Not Detected (Not Detect); Cryptosporidium Not Detected (Not Detect); Cyclospora cayetanensis Not Detected (Not Detect); Entamoeba histolytica Not Detected (Not Detect); Enteroaggregative E.coli Not Detected (Not Detect); Enteropathogenic E.coli Not Detected (Not Detect); Enterotoxigenic E.coli It/st Not Detected (Not Detect); Giardia lamblia Not Detected (Not Detect); Norovirus GI/GII Detected (Not Detect); Plesiomonsa shigelloides Not Detected (Not Detect); Rotavirus A Not Detected (Not Detect); Salmonella Not Detected (Not Detect); Sapovirus Not Detected (Not Detect); Shiga-like toxin-prod E.coli Not Detected (Not Detect); Shigella/Enteroinvasive E.coli Not Detected (Not Detect); Vibrio Not Detected (Not Detect); Vibrio cholerae Not Detected (Not Detect); Yersinia enterocolitica Not Detected (Not Detect)
[2024-05-03] MEDS: OXcarbazepine 150 MG TABLET 300 MG PO (08:41)
[2024-05-03 14:09] LABS: BUN Creatinine Ratio 10.2 (6-22); Blood Urea Nitrogen 5 mg/dL (7-17); Calcium 7.8 mg/dL (8.4-10.2); Carbon Dioxide 19 mmol/L (22-32); Chloride 110 mmol/L (98-107); Estimated Glomerular Filt Rate > 60 mL/min (>60); Glucose 111 mg/dL (70-100); HEMOLYSIS < 15 (0-50); Potassium 3.4 mmol/L (3.4-5.1); Sodium 134 mmol/L (137-145)
--- NOTE | 2024-05-03 14:31 | PC.NURSE ---
NST performed by this OB RN, baseline 145, moderate variability, 10X10 accelerations, no audible decelerations heard. NST strip placed in pt chart in acute care. Pt denies contractions, bleeding, any leakage of fluid and reports positive movement.
--- NOTE | 2024-05-03 15:44 | CM.DANOTE ---
Patient is a 33 yo female who was admitted OBS Status on 05/03/24 for gastroenteritis and Norovirus. Pt has [employer] and [employer] for insurance and her PCP is Ramon Hilton at [facility]. EMR was reviewed. Per OBGYN, pt is 30 weeks and getting IV fluids and not yet medically stable to discharge. Per RN, pt having diarrhea still today and tachy and updating the OBGYN. Patient resides in [place] with her Sig Other and 2 children on her parent's property and has a hx of polysubstance abuse and mental health but in remission and independent with ADLs at baseline and drives and is employed. Due to triage needs no bedside assessment completed and pt not yet stable for discharge. Plan: SW to follow closely for bedside discussion with pt tomorrow to confirm safe discharge plan and any identified discharge planning needs. MAYRA Yi
--- NOTE | 2024-05-03 19:58 | P.PN_ITS ---
Subjective Subjective Date Patient Seen: 05/03/24 Time Patient Seen: 19:59 Interval history: Patient is a 33-year-old 3 para 2 at 29-,4/7 weeks gestation who was admitted with intractable vomiting and diarrhea last evening. Lab work positive for norovirus. She has had 4 episodes of diarrhea today. She said that the last 2 have been more formed. She has not had any vomiting since last night. She tolerated a diet today, although decreased appetite. She has an appointment with her primary care provider at 10:15 a.m. tomorrow morning. Patient reports movement. No leakage of fluid or vaginal bleeding. No contractions. Nonstress test was performed earlier today. Baseline heart rate 145 beats per minute. Reactive nonstress test. No contractions recorded. Exam Vital Signs (past 8 hours): - 05/03/24 12:00 05/03/24 18:00 Temperature 97.9 F 98 F Pulse Rate 114 H 120 H Respiratory Rate 18 16 Blood Pressure 111/55 L 127/70 Pulse Oximetry 96 98 Oxygen Delivery Method Room Air Oxygen Flow Rate 0 Narrative Exam Narrative: Generally: Patient is sitting up in bed, no acute distress Lungs: Clear to auscultation bilaterally Cardiovascular: Regular rate and rhythm Fundal height: 30 cm Abdomen: Hyperactive bowel sounds throughout Extremities: No edema Objective Labs 05/02/24 19:50 05/03/24 13:20 Labs: Laboratory Results - last 24 hr 05/02/24 05/03/24 05/03/24 19:50 05:08 13:20 WBC 8.2 RBC 3.47 L Hgb 10.8 L Hct 30.7 L MCV 88.3 MCH 31.0 MCHC 35.1 RDW 13.5 Plt Count 260 Neut % (Auto) 84.5 H Lymph % (Auto) 9.6 L [place] % (Auto) 5.6 Eos % (Auto) 0.1 L Baso % (Auto) 0.2 Neut # (Auto) 6900 Lymph # (Auto) 800 L [place] # (Auto) 500 Eos # (Auto) 0 Baso # (Auto) 0 Sodium 133 L 134 L Potassium 3.2 L 3.4 Chloride 106 110 H Carbon Dioxide 17 L 19 L BUN 8 5 L Creatinine 0.44 L 0.49 L Estimated GFR > 60 > 60 BUN/Creatinine Ratio 18.2 10.2 Glucose 105 H 111 H Lactate 1.0 Calcium 8.4 7.8 L Total Bilirubin 0.7 AST 22 ALT 15 Alkaline Phosphatase 69 Total Protein 6.6 Albumin 3.7 Globulin 2.9 Albumin/Globulin Ratio 1.3 Lipase 87 Stl C. cayetanensis PCR Not detected Stool Rotavirus (PCR) Not detected Stool Adenovirus (PCR) Not detected Stool Astrovirus (PCR) Not detected Stool Cryptosporidium PCR Not detected Stl E.coli Shiga Tox PCR Not detected St Sh/Enteroin Ecoli PCR Not detected Stl Enterotoxigenic E PCR Not detected Stool EPEC (PCR) Not detected Stl E. histolytica PCR Not detected Stool Giardia Lamblia PCR Not detected Stool Sapovirus (PCR) Not detected Stl P. shigelloides PCR Not detected St Y.enterocolitica PCR Not detected Stool Vibrio (PCR) Not detected Stl Vibrio cholerae PCR Not detected Stl Enteroaggr Ecoli PCR Not detected Stl Norovirus GI/GII PCR Detected Campylobacter (PCR) Not detected C. difficile Tox (PCR) Not detected Salmonella (PCR) Not detected PFS Medical History Substance abuse in remission Pyelonephritis (~2022) Sepsis (~2022) PID (acute pelvic inflammatory disease) (~2022) Severe auditory hallucinations anxiety Anemia Anovulation Nightmares Cervical dysplasia Encounter for IUD insertion (~05/07/23) Encounter for supervision of other normal , unspecified trimester Surgical History [place] teeth extracted (~2017) History of cholecystectomy History of gynecologic surgery (~2012) Family History Father Diabetes mellitus History of heart disease Hyperlipidemia Hypertension Mother Ovarian cancer Multiple sclerosis Colostomy in place Grandmother Diabetes mellitus Aunt Breast cancer Social History marital status: unmarried,living together number of children: 3 (includes partner's daughter; also sometimes his other child stays on weekends) household members: children lives independently: Yes caregiver/support person: Yes housing: house (separate house on parent's property) pets and animals: Yes (cats, ebonyahua - daughter to do litter box now) education level: college (some college) occupational status: employed current occupational exposures/hazards: No special antoni needs: No travel history: over 6 months ago seatbelt use: always helmet use: No water heater temp set < 120 deg: Yes working smoke detector in home: Yes fire extinguisher in home: No carbon monox detector in home: Yes firearms in home: No do you feel safe at home: Yes in current or past relationships, have you been: threatened and made to feel afraid Smoking Status: Current some day smoker Tobacco: How many years used: 9 (Started age 24) quit status: considering quitting second hand exposure: No alcohol intake: former substance use type: former substance user and marijuana (not recently) during the past year weight has: other (fluctuates) well-balanced diet: daily or most days daily servings fruits/ve-4 caffeine: Yes (going to now limit it to 200mg) Type(s) of exercise: none Assessment & Plan Assessment & Plan narrative: Assessment: 33-year-old 3 para 2 with gastroenteritis with norovirus Improved symptoms Able to tolerate p.o. Plan: Anticipate discharge May 04, 2024 Time-Based Coding :: [TOTAL MINUTES] spent with patient and on the chart (including review of chart, obtaining history, exam, reviewing outside data, placing orders, documenting exam and treatment plan, and counseling patient) on [DATE]. Quality VTE Deep Vein Thrombosis/Pulmonary Embolism Present on Admission: No
[2024-05-03] MEDS: OLANZapine 2.5 MG TABLET 5 MG PO (20:08)
--- NOTE | 2024-05-04 01:26 | PC.NURSE ---
Per OB nurse, Dr. Zamora only wants pt to have heart tones daily and not once a shift.
[2024-05-04 03:00] VITALS: BP 111/56; PULSE 90; RESP 19; TEMP 36; O2SAT 96
[2024-05-04 07:00] VITALS: BP 109/59; PULSE 84; RESP 15; TEMP 36.1; O2SAT 96
--- NOTE | 2024-05-04 08:04 | PM.OBDS.1 ---
Discharge Providers Provider Date of admission: 05/03/24 01:33 Discharge Date: 05/04/24 Primary care physician: LISSA Marcelino Discharge provider: Diana Marin MD Summary Hospital Course Date Patient Seen: 05/04/24 Time Patient Seen: 07:30 Diagnoses: acute gastroenteritis Hospital Course: 33yo presented to ED on 05/03 at 29w4d with complaints of acute onset nausea/vomiting/diarrhea with PO intolerance for 24h. Pt received IVF hydration and was noted to have reassuring surveillance, however due to persistent maternal tachycardia as well as active emesis pt was admitted to antepartum service for continued observation and parenteral fluids. Pt had slow steady improvement of symptoms, denies change in FM, vaginal bleeding, dysuria or cramping/contractions. Reports last emesis and diarrhea 05/03. Has f/u with PCP scheduled for later this morning at 10:15am and requests discharge to home this AM to facilitate making this appointment. Discharge Diagnosis (1) Gastroenteritis: Start Date: 05/02/24 Status: Acute (2) 29 weeks gestation of : Status: Acute (3) Tachycardia determined by examination of pulse: Status: Acute Status at Discharge Cognitive/behavioral status at discharge: oriented Functional status at discharge: independent ambulation Overall status at discharge: patient is back to baseline Time Spent with Patient Time attestation: Total time spent providing and/or coordinating discharge services: Time spent: Less than 30 minutes Objective Labs 05/02/24 19:50 05/03/24 13:20 Labs: Laboratory Results - last 24 hr 05/03/24 13:20 Sodium 134 L Potassium 3.4 Chloride 110 H Carbon Dioxide 19 L BUN 5 L Creatinine 0.49 L Estimated GFR > 60 BUN/Creatinine Ratio 10.2 Glucose 111 H Calcium 7.8 L Exam Vital Signs (past 8 hours): - 05/04/24 03:00 Temperature 96.8 F L Pulse Rate 90 Respiratory Rate 19 Blood Pressure 111/56 L Pulse Oximetry 96 Oxygen Flow Rate 0 Oxygen Delivery Method Room Air Oxygen Flow Rate 0 Const General: cooperative, comfortable and No acute distress Nutritional Appearance: obese Orientation: alert, awake and oriented x3 Limitations: mental status not altered Resp Effort & Inspection: normal respiratory effort Cardio Pulses: normal peripheral pulses GI Inspection: normal to inspection Other: gravid, non-tender movement palpated Other: deferred Skin General: no rashes or lesions noted Neuro General: patient alert, patient awake and patient oriented x3 Extrem General: normal to inspection Psych Mental Status: mental status grossly normal Judgment: judgment good Discharge Plan Discharge Plan Patient Disposition: Home Provider Discharge Comment: Notify your OB provider if any concerns for bleeding, cramping/contractions, leaking fluid, not feeling movement as normal Discharge orders & Medications Prescriptions: Continued thiamine HCl (vitamin B1) 100 mg tablet 100 mg PO DAILY Qty: 90 1RF olanzapine 5 mg tablet 5 mg PO DAILY Qty: 90 1RF oxcarbazepine 300 mg tablet 300 mg PO DAILY Qty: 90 1RF ferrous sulfate 325 mg (65 mg iron) tablet 325 mg PO DAILY Qty: 90 1RF Rx Instructions: If experiencing side effects may decrease to 1 tab every Friday, Friday, Friday. M-Allyson Plus 27 mg iron- 1 mg tablet 1 tab PO DAILY Qty: 90 3RF folic acid 1 mg tablet 1 mg PO DAILY Qty: 90 3RF Follow up/Referrals: Ramon Hilton ARNP [Primary Care Provider] - Diet/Activity/Treatments Diet: Regular Diet comment: start with a bland diet: JESSICA (banana, rice, apple/applesauce, tea, toast) Visit Report/Discharge Packet Stand Alone Forms: Patient Portal/API, Stroke Signs & Symptoms Discharge Data Primary Care Provider: Ramon Hilton Attending Provider: Marisela Valdes Admit Date/Time: 05/03/24 01:33
[2024-05-04] MEDS: ACETAMINOPHEN 325 MG TABLET 650 MG PO (08:19)
[2024-05-04] MEDS: OXcarbazepine 150 MG TABLET 300 MG PO (08:33)
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
== END 2024-05-04 09:55 | disposition home or self-care (01) ==
LOC: ED 19:48 → AC 05-03 01:33
PROVIDERS: Obstetrics & Gynecology; Admitting Provider Specialist; Emergency Provider Emergency Medicine; PCP Registered Nurse Diabetes Educator; Visit Provider Specialist
DX: O99.891 Other specified diseases and conditions complicating pregnancy (principal); K52.9 Noninfective gastroenteritis and colitis, unspecified; A08.11 Acute gastroenteropathy due to Norwalk agent; Z3A.30 30 weeks gestation of pregnancy
CPT/HCPCS: 36415; 80048; 80053; 81003; 83605; 83690; 85025; 87507; 87635; 96361; 96365; 96375; 96376; 99284; G0378; J0136; J2405; J2765

== ENCOUNTER → 2024-05-20 07:13 | Outpatient (CLI) | payer OTHER, MEDICAID, SELFPAY ==
[2024-05-03 02:08] VITALS: BMI 35.2
--- NOTE | 2024-05-20 07:14 | DI.US.S_ITS ---
PROCEDURE: US OB FOLLOW UP INDICATIONS: Follow up anatomy scan/spine not well seen OUTSIDE/PRIOR DATING DATA: Last menstrual period (LMP): 10/08/2023. LMP-based estimated date of delivery (BIA): 07/15/2024. First dating scan (date and location): 12/09/2023. Estimated date of delivery (BIA) from first dating scan: 07/14/2024. The calculations are made using the sonographic BIA of 07/14/2024. TECHNIQUE: Real-time scanning was performed of the fetus, with image documentation. Endovaginal scanning: Not performed COMPARISON: None. FINDINGS: A single living intrauterine gestation is present. Presentation: Vertex. Placenta: Placental position is anterior, without previa. Amniotic fluid index: 12.8 cm, normal range is 5-24 cm. Single deepest vertical pocket is 6.0 cm. heart rate: 155 beats per minute. Maternal cervical canal: Not well visualized. Clinically estimated gestational age: 32 weeks 0 days anatomy: Spine remains not well visualized due to lie. IMPRESSION: Single living intrauterine at 32 weeks 0 days, BIA of 07/15/2024. spine remains not well visualized due to lie. Dictated by: Triston Ocampo M.D. on 05/21/2024 at 11:03 Approved by: Triston Ocampo M.D. on 05/21/2024 at 11:05
== END ==
PROVIDERS: PCP Registered Nurse Diabetes Educator; Referring Provider Obstetrics & Gynecology; Visit Provider Obstetrics & Gynecology
DX: Z34.93 Encounter for supervision of normal pregnancy, unspecified, third trimester (principal); Z3A.32 32 weeks gestation of pregnancy
CPT/HCPCS: 76816

== ENCOUNTER → 2024-06-22 10:27 | Outpatient (CLI) | payer OTHER, MEDICAID, SELFPAY ==
[2024-05-03 02:08] VITALS: BMI 35.2
[2024-06-23 13:46] LABS: Strep Grp B PCR NEG for Grp B Strep
== END ==
PROVIDERS: PCP Registered Nurse Diabetes Educator; Visit Provider Obstetrics & Gynecology
DX: Z36.85 Encounter for antenatal screening for Streptococcus B (principal)
CPT/HCPCS: 87653

== ENCOUNTER 2024-06-22 20:19 | Outpatient (CLI) | payer OTHER, MEDICAID, SELFPAY ==
[2024-05-03 02:08] VITALS: BMI 35.2
[2024-06-22] MEDS: ACETAMINOPHEN 325 MG TABLET 650 MG PO (21:08)
== END 2024-06-22 21:29 | disposition home or self-care (01) ==
LOC: OB 06-23 10:25
PROVIDERS: PCP Registered Nurse Diabetes Educator; Referring Provider Student in an Organized Health Care Education/Training Program; Visit Provider Student in an Organized Health Care Education/Training Program
DX: O26.893 Other specified pregnancy related conditions, third trimester (principal); T14.90XA Injury, unspecified, initial encounter; W19.XXXA Unspecified fall, initial encounter; O99.333 Smoking (tobacco) complicating pregnancy, third trimester; F17.210 Nicotine dependence, cigarettes, uncomplicated; O99.323 Drug use complicating pregnancy, third trimester; F12.90 Cannabis use, unspecified, uncomplicated; Z3A.36 36 weeks gestation of pregnancy
CPT/HCPCS: 59025; G0378; G0379

== ENCOUNTER 2024-06-22 21:24 | Emergency (ER) | payer OTHER, MEDICAID, SELFPAY ==
[2024-05-03 02:08] VITALS: BMI 35.2
[2024-06-22 21:33] VITALS: BP 119/74; PULSE 106; RESP 20; TEMP 36.4; O2SAT 97; BMI 38.6
--- NOTE | 2024-06-22 21:44 | PC.NURSE ---
Provider Michael made aware of patient presentation and complaints of difficulty walking. Pt reports having Tylenol in center.
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
[2024-06-22 23:35] VITALS: BP 112/69; PULSE 109; RESP 18; O2SAT 97
[2024-06-23 00:49] VITALS: BP 139/80; PULSE 100; RESP 20; O2SAT 98
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
[2024-06-23 02:11] VITALS: BP 124/72; PULSE 101; RESP 19; O2SAT 99
== END 2024-06-23 02:13 | disposition home or self-care (01) ==
PROVIDERS: Emergency Provider Emergency Medicine; PCP Registered Nurse Diabetes Educator
DX: O9A.313 Physical abuse complicating pregnancy, third trimester (principal); M79.631 Pain in right forearm; R10.30 Lower abdominal pain, unspecified; Y07.9 Unspecified perpetrator of maltreatment and neglect; M54.50 Low back pain, unspecified; Z3A.37 37 weeks gestation of pregnancy; O99.333 Smoking (tobacco) complicating pregnancy, third trimester; F17.210 Nicotine dependence, cigarettes, uncomplicated; O99.323 Drug use complicating pregnancy, third trimester; F12.90 Cannabis use, unspecified, uncomplicated; Z3A.36 36 weeks gestation of pregnancy; Z36.85 Encounter for antenatal screening for Streptococcus B
CPT/HCPCS: 59025; 73090; 87653; 99281; 99283

== ENCOUNTER → 2024-06-29 09:30 | Outpatient (CLI) | payer OTHER, MEDICAID, SELFPAY ==
[2024-05-03 02:08] VITALS: BMI 35.2
--- NOTE | 2024-06-29 09:31 | DI.US.S_ITS ---
PROCEDURE: US OB LIMITED INDICATIONS: SIZE GREATER THAN DATES OUTSIDE/PRIOR DATING DATA: Last menstrual period (LMP): 10/08/2023 LMP-based estimated date of delivery (BIA): 07/15/2024 First dating scan (date and location): 12/09/2023 Estimated date of delivery (BIA) from first dating scan: 07/14/2024 The calculations are made using the clinical BIA of 07/15/2024. TECHNIQUE: Real-time scanning was performed of the fetus, with image documentation and biometric measurements. Endovaginal scanning: Not performed. COMPARISON: [facility], OB FOLLOW UP, 05/20/2024, 7:26. FINDINGS: General: A single living intrauterine gestation is present. Presentation: Vertex Placenta: Placental position is anterior, without previa. Amniotic fluid index: 18.2 cm, normal range is 5-24 cm. Single deepest vertical pocket is 7.1 cm. heart rate: 145 beats per minute. Maternal cervical canal: Not well visualized. biometrics: Biparietal diameter: 9.1 cm, 36 weeks 6 days Head circumference: 32.6 cm, 37 weeks 0 days Abdominal circumference: 39.1 cm, greater than 40 weeks Femur length: 7.0 cm, 35 weeks 5 days Clinically estimated gestational age: 37 weeks 5 days Composite gestational age from present scan: 36 weeks 4 days Estimated weight and percentile: 4005 g, 98th percentile Sacral spine is within normal limits on the current exam without signs of an open neural tube defect. IMPRESSION: 1. Single live intrauterine with vertex positioning. 2. Estimated weight is 4005 g, 98th percentile for clinical gestational age. Abdominal circumference is greater than the 99th percentile. 3. Amniotic fluid index is normal. 4. Sacral spine appears to be within normal limits. Approved by: Gil Valentin M.D. on 06/29/2024 at 13:25
== END ==
LOC: US 09:31
PROVIDERS: PCP Registered Nurse Diabetes Educator; Referring Provider Obstetrics & Gynecology; Visit Provider Obstetrics & Gynecology
DX: O26.843 Uterine size-date discrepancy, third trimester (principal); Z3A.36 36 weeks gestation of pregnancy
CPT/HCPCS: 76815

== ENCOUNTER 2024-07-20 10:42 | Observation (INO) | payer OTHER, MEDICAID, SELFPAY ==
[2024-05-03 02:08] VITALS: BMI 35.2
== END 2024-07-20 11:50 | disposition home or self-care (01) ==
PROVIDERS: Admitting Provider Obstetrics & Gynecology; PCP Registered Nurse Diabetes Educator; Referring Provider Obstetrics & Gynecology; Visit Provider Obstetrics & Gynecology
DX: O26.893 Other specified pregnancy related conditions, third trimester (principal); O99.333 Smoking (tobacco) complicating pregnancy, third trimester; O36.8130 Decreased fetal movements, third trimester, not applicable or unspecified; O99.323 Drug use complicating pregnancy, third trimester; R52 Pain, unspecified; F17.290 Nicotine dependence, other tobacco product, uncomplicated; F12.90 Cannabis use, unspecified, uncomplicated; Z3A.40 40 weeks gestation of pregnancy
CPT/HCPCS: 59025; G0378; G0379

== ENCOUNTER 2024-07-20 15:53 | Inpatient (IN) | payer OTHER, MEDICAID, SELFPAY ==
[2024-05-03 02:08] VITALS: BMI 35.2
[2024-07-20] MEDS: LACTATED RINGERS 1,000 ML 1000 ML IV (17:00)
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
[2024-07-20 17:37] VITALS: BP 133/87; PULSE 91; TEMP 36.1
[2024-07-20 17:37] LABS: Add Manual Diff / Slide Review NO; Basophils Absolute Auto 0 /uL (0-100); Basophils Percent Auto 0.5 % (0-2); Eosinophils Absolute Auto 0 /uL (0-450); Eosinophils Percent Auto 0.4 % (2-4); Hematocrit 34.7 % (36-46); Hemoglobin 12.1 g/dL (12.0-16.0); Lymphocytes Absolute Auto 2200 /uL (1100-4500); Lymphocytes Percent Auto 24.7 % (25-40); Mean Corpuscular HGB Conc 34.8 % (30-36); Mean Corpuscular Hemoglobin 30.9 PG (26-34); Mean Corpuscular Volume 88.8 fL (80-100); Monocytes Absolute Auto 700 /uL (0-900); Monocytes Percent Auto 7.6 % (3-14); Neutrophils Absolute Auto 6100 /uL (1500-7000); Neutrophils Percent Auto 66.8 % (50-75); Platelet Count 276 X10^3/uL (150-400); Red Blood Cell Count 3.91 X10^6/uL (4.0-5.2); Red Cell Distribution Width 14.7 % (11.6-14.8); White Blood Cell Count 9.1 X10^3/uL (4.5-11.0)
[2024-07-20 17:38] VITALS: BP 124/75
[2024-07-20] MEDS: LACTATED RINGERS 1,000 ML 100 ML IV ×2 (18:20→21:36)
--- NOTE | 2024-07-20 18:24 | PM.AN.REGBLK ---
Regional [facility] Pre-procedure Procedure: Continuous Lumbar Epidural for L&D Attending OB provider: Ryan Penn PMH/ROS narrative: , spontaneous labor, 37 weeks desires epidural. Previous two vaginal deliveries, patient had no epidural. Patient positive for bipolar/anxiety. Patient vapes daily. Also smokes marijuana daily. Otherwise ROS, PMH negative. PSH/Anesthesia history narrative: None Exam narrative: Mall 2, BMI 39. ASA Class: II Labs: Hct 34.7 % (36-46) L 07/20/24 16:55 Plt Count 276 X10^3/uL (150-400) 07/20/24 16:55 Medications: Current Medications Generic Name Dose Route Start Last Admin Trade Name Freq PRN Reason Stop Dose Admin Calcium Carbonate 1,000 mg 07/20/24 17:09 Calcium Carbonate 500 Mg Tab PO Q2HR PRN Dyspepsia Carboprost Tromethamine 250 mcg 07/20/24 17:09 Carboprost 250 Mcg/Ml Ampul IM Q90M PRN Bleeding Lactated Ringer's 1,000 mls @ 100 mls/hr 07/20/24 17:15 Lactated Ringers IV 07/21/24 03:14 CONT LUTHER Oxytocin/Lactated Ringer's 30 unit in 500 mls @ 200 mls/hr 07/20/24 17:09 Oxytocin Premix IV CONT PRN Bleeding Protocol Tranexamic Acid 1,000 mg/ 100 mls @ 600 mls/hr 07/20/24 17:09 Sodium Chloride IV NOW PRN Bleeding Lactated Ringer's 1,000 mls @ 100 mls/hr 07/20/24 18:15 Lactated Ringers IV CONT LUTHER Lidocaine HCl 20 ml 07/20/24 17:09 Lidocaine 1% 20 Ml INJ INTRA-OP PRN Post Delivery Methylergonovine Maleate 0.2 mg 07/20/24 17:09 Methylergonovine 0.2 Mg Tablet PO Q6HR PRN Heavy Bleeding Methylergonovine Maleate 0.2 mg 07/20/24 17:09 Methylergonovine 0.2 Mg/Ml Vial IM NOW PRN Bleeding Mineral Oil 30 ml 07/20/24 17:09 Mineral Oil 30 Ml Udc TOP PRN PRN Version Misoprostol 800 mcg 07/20/24 17:09 Misoprostol 200 Mcg Tablet IA NOW PRN Bleeding Misoprostol 400 mcg 07/20/24 17:09 Misoprostol 200 Mcg Tablet SL NOW PRN Bleeding Naloxone HCl 0.2 mg 07/20/24 17:09 Naloxone 0.4 Mg/Ml Vial IV Q2MIN PRN Opiate Reversal Ondansetron HCl 4 mg 07/20/24 17:09 Ondansetron 4 Mg/2 Ml Inj IV Q4HR PRN Nausea And Vomiting Oxytocin 10 unit 07/20/24 17:09 Oxytocin 10 Unit/Ml Vial IM NOW PRN Bleeding Allergies: Allergies Allergy/AdvReac Type Severity Reaction Status Date / Time doxycycline [DOXYCYCLINE] Allergy Intermediate Hives Verified 07/20/24 10:23 Procedure Insertion date: 07/20/24 Insertion time: 17:54 Prep/Local: 1% lidocaine (chlorhexidine skin prep) Interspace: L4-5 Patient position: sitting Needle: 17 gauge Tuohy Loss of resistance with: saline HIEU at (cm): 8 Catheter placed at SKIN (cm): 16 Catheter in SPACE (cm): 8 Sensory level: T10 Insertion: No CSF, No Blood, No Paresthesia with insertion, No Paresthesia with injection and No Test dose reaction Initial Medications TEST DOSE time: 18:04 BOLUS DOSE time: 18:16 BOLUS DOSE (mL): 5 BOLUS DOSE med: other (pump solution) Infusion INFUSION: 0.125% bupivacaine and with fentanyl 2 mcg/mL Initial rate (mL/hr): 10 Post-procedure Anesthesia date START: 07/20/24 Anesthesia time START: 17:54 Anesthesia date END: 07/20/24 Anesthesia time END: 23:49
--- NOTE | 2024-07-20 19:08 | PM.OBPNLAB ---
Date/Time Date Patient Seen: 07/20/24 Time Patient Seen: 19:08 Pain Control Pain control: epidural Pelvic Exam Dilation (cm): 7 Effacement (%): 100 station: -1 Amniotic membrane status: Ruptured (AROM productive of meconium-stained fluid) Contractions Monitor mode: External Contraction pattern: Irregular Status status: Category ll Heart Rate Baseline: 150 Monitor Accelerations: Present Monitor Decelerations: Early, Episodic and Late Monitor Variability: Moderate Assessment and Plan Assessment: active labor Plan: continuous present management
--- NOTE | 2024-07-20 21:23 | PM.OBPNLAB ---
Date/Time Date Patient Seen: 07/20/24 Time Patient Seen: 21:23 Pain Control Pain control: epidural Pelvic Exam Dilation (cm): 9 Effacement (%): 100 station: -1 Amniotic membrane status: Ruptured (AROM productive of meconium-stained fluid) Contractions Monitor mode: External Contraction pattern: Irregular Status status: Category ll Heart Rate Baseline: 150 Monitor Accelerations: Present Monitor Decelerations: Absent, Early and Late Monitor Variability: Moderate Assessment and Plan Assessment: active labor Plan: begin patient augmentation
[2024-07-20] MEDS: OXYTOCIN PREMIX 30 UNIT/500 ML PLAST..BAG IV (21:36)
[2024-07-20] MEDS: ONDANSETRON 4 MG/2 ML INJ IV (21:40)
--- NOTE | 2024-07-21 00:13 | P.PCNOB_ITS ---
Labor & Delivery Delivery date: 07/21/24 Delivery augmentation: rupture of membranes and pitocin Delivery monitor: external FHT and external uterine Route of delivery: L&D Laceration Description: None Estimated blood loss (mL): 100 Quantitative Blood Loss: 369 Anesthesia Type: Epidural Complications: 1min 40sec shoulder dystocia Narrative: Patient progressed to C/C/0 with pitocin augmentation and epidural anesthesia. After approximately 45min of maternal pushing efforts, delivered in OA position and restituted LOT. After unsuccessful attempts to deliver anterior shoulder with gentle downward traction, a shoulder dystocia was called. McRobert's manuever with suprapubic pressure were performed, which were unsuccessful. Attempt to deliver the posterior arm was unsuccessful. Rotational maneuvers were attempted and were unsuccessful. Posterior axillary sling maneuver was then performed with the provider's 2nd digits, which then released the posterior shoulder enough to deliver the anterior shoulder. During this maneuver, a pop was felt in the infant's left arm. The rest of the body then delivered with ease. Cord doubly clamped and cut immediately with infant handed off to awaiting pediatric team. Placenta delivered spontaneously, intact with 3-vessel cord. Fundus noted to be firm with bimanual massage and pitocin. Inspection of the cervix, vagina, and perineum was notable for no lacerations. All tissues were noted to be hemostatic. All lap and needle counts were correct x2. [place] Baby 1: Infant gender: Female Presentation: vertex Placenta delivery description: Spontaneous Cord Vessel Description: Nuchal Cord score (1 min): 7 score (5 min): 8 weight: 11 lb 12.328 oz Plan for aftercare: Routine care
[2024-07-21] MEDS: TRANEXAMIC ACID 1,000 MG in SODIUM CHLORIDE 0.9% 100 ML 600 MG IV (01:00)
[2024-07-21] MEDS: IBUPROFEN 600 MG TABLET PO ×2 (03:39→09:46)
[2024-07-21] MEDS: DOCUSATE 100 MG CAPSULE PO (08:11)
[2024-07-21] MEDS: PRENATAL VIT,CALC/IRON/FOLIC 1 TABLET 1 TAB PO (08:11)
[2024-07-21] MEDS: ACETAMINOPHEN 325 MG TABLET 650 MG PO ×3 (08:11→21:49)
[2024-07-21] MEDS: OLANZapine 2.5 MG TABLET 5 MG PO (09:46)
[2024-07-21] MEDS: OXcarbazepine 150 MG TABLET 300 MG PO (09:46)
--- NOTE | 2024-07-21 16:07 | PM.OBPN.1 ---
Subjective - OB Subjective Patient comments: no complaints, pain well controlled, tolerating diet and flatus present baby status: doing well and other (No issues re: humeral fx) [place] feeding status: exclusively breast feeding Interval history: Christal is doing extremely well following her delivery complicated by shoulder dystocia. Bleeding is mild to moderate and she has only mild vaginal/perineal pain. Exam HENMT Head: normal to inspection, normocephalic and atraumatic Eyes General: appearance normal, both eyes and all related structures Resp Effort & Inspection: normal respiratory effort and able to speak in complete sentences GI Inspection: normal to inspection Palpation: soft and no hepatosplenomegaly Extrem Right lower extremity: normal to inspection Objective Labs 07/20/24 16:55 Labs: Laboratory Results - last 24 hr 07/20/24 07/21/24 07/21/24 16:55 00:00 00:06 WBC 9.1 RBC 3.91 L Hgb 12.1 Hct 34.7 L MCV 88.8 MCH 30.9 MCHC 34.8 RDW 14.7 Plt Count 276 Neut % (Auto) 66.8 Lymph % (Auto) 24.7 L [place] % (Auto) 7.6 Eos % (Auto) 0.4 L Baso % (Auto) 0.5 Neut # (Auto) 6100 Lymph # (Auto) 2200 [place] # (Auto) 700 Eos # (Auto) 0 Baso # (Auto) 0 Cord ABG pH 7.07 L Cord ABG pCO2 83.4 H Cord ABG pO2 17.7 Cord ABG HCO3 24.0 Cord ABG Base Excess -8.9 Cord ABG O2 Sat 13.7 Cord VBG pH 7.337 Cord VBG pCO2 43.2 Cord VBG pO2 30.8 Cord VBG HCO3 23.2 Cord VBG Base Excess -2.8 Cord VBG O2 Sat 54.8 Blood Type AB Positive Antibody Screen Negative Assessment & Plan Plan day: 1 plan OB: routine care Comments: Anticipate discharge home tomorrow when the is released. Follow-up will be in 6 weeks or as needed. Time-Based Coding :: [TOTAL MINUTES] spent with patient and on the chart (including review of chart, obtaining history, exam, reviewing outside data, placing orders, documenting exam and treatment plan, and counseling patient) on [DATE].
[2024-07-22] MEDS: ACETAMINOPHEN 325 MG TABLET 650 MG PO (07:12)
[2024-07-22] MEDS: IBUPROFEN 600 MG TABLET PO (07:12)
--- NOTE | 2024-07-22 10:42 | P.DS_ITS ---
Discharge Providers Provider Date of admission: 07/20/24 15:53 Discharge Date: 07/22/24 Primary care physician: LISSA Marcelino Consults: 07/20/24 17:10 Consult to Anesthesiology Urgent Comment: Consulting Provider: Blanca Machado Reason for consultation: Epidural 07/22/24 00:10 Consult to Senior Sales Compensation Analyst Routine Comment: Discharge provider: Ryan Penn MD Summary Hospital Course Date Patient Seen: 07/22/24 Time Patient Seen: 10:43 Diagnoses: Intrauterine gestation, 41+ 0 weeks, delivered by spontaneous vaginal macrosomia Hospital Course: Patient was admitted on the evening of 07/20/2024 in spontaneous labor and progressed to deliver late that evening a viable female with a weight of 5339 g (11 lb 12.3 oz) with Apgars of 7/8 at 1 and 5 minutes respectively. At the time of delivery a 1 minute and 42nd shoulder dystocia was encountered during which the infant sustained a nondisplaced left humeral fracture. Full details of the delivery process are well summarized on Dr. Marika Marin' delivery note of that date. Following delivery both mother and infant have done extremely well with the mother experiencing prompt return of bowel and bladder function, she is ambulating independently, tolerating a regular diet, and her pain is well relieved with oral pain medications. She will be discharged at this time along with her infant to home after counseling regarding precautionary symptoms, limitations of activity, medications, and plans for follow-up which will be in 6 weeks. Medications at discharge will include resumption of all preadmission medications as well as oxycodone 5 mg every 6 hours as needed for pain, dispense 10 with no refills, and ibuprofen 600 mg p.o. q.6 hours as needed for pain, dispense 30 with 2 refills. Patient will be seen back in the office in 6 weeks and expresses a desire for insertion of a Mirena IUD at that time for control. Peripartum Data Infant Delivery Method: Natural Vaginal Laceration Description: None Episiotomy description: None Procedures: Continuous lumbar epidural Spontaneous vaginal complications: none 1: Gender: Female Disposition of : home Status at Discharge Cognitive/behavioral status at discharge: oriented Time Spent with Patient Time attestation: Total time spent providing and/or coordinating discharge services: Time spent: Less than 30 minutes Objective Labs 07/20/24 16:55 Labs: Laboratory Results - last 24 hr 07/21/24 07/21/24 00:00 00:06 Cord ABG pH Cancelled Cord ABG pCO2 Cancelled Cord ABG pO2 Cancelled Cord ABG HCO3 Cancelled Cord ABG Base Excess Cancelled Cord ABG O2 Sat Cancelled Cord VBG pH Cancelled Cord VBG pCO2 Cancelled Cord VBG pO2 Cancelled Cord VBG HCO3 Cancelled Cord VBG Base Excess Cancelled Cord VBG O2 Sat Cancelled Exam Const General: cooperative and comfortable HENMT Head: normal to inspection, normocephalic and atraumatic Eyes General: appearance normal, both eyes and all related structures Resp Effort & Inspection: normal respiratory effort and able to speak in complete sentences Auscultation: clear to auscultation bilaterally Cardio Rate: regular rate Rhythm: regular rhythm Heart Sounds: S1 normal, S2 normal and no murmurs GI Inspection: normal to inspection Palpation: soft and no hepatosplenomegaly Extrem Right lower extremity: normal to inspection Left lower extremity: normal to inspection Discharge Plan Discharge Plan Patient Disposition: Home Provider Discharge Comment: Please review the written instructions you received when you were discharged from the hospital. Your follow-up appointment is scheduled for 6 weeks after delivery and I look forward to seeing you then. If however in the meanwhile you have any issues, concerns, or questions, please contact me either through the office phone at [phone], or via the patient portal. Discharge orders & Medications Prescriptions: New ibuprofen 600 mg Tablet 600 mg PO Q6HR PRN (Reason: Pain, Mild (1-3)) Qty: 30 2RF oxycodone 5 mg tablet 5 mg PO Q6H PRN (Reason: pain) Qty: 10 0RF Continued ferrous sulfate 325 mg (65 mg iron) tablet 325 mg PO DAILY Qty: 90 1RF Rx Instructions: If experiencing side effects may decrease to 1 tab every Friday, Friday, Friday. M- Plus 27 mg iron- 1 mg tablet 1 tab PO DAILY Qty: 90 3RF folic acid 1 mg tablet 1 mg PO DAILY Qty: 90 3RF olanzapine 5 mg tablet 5 mg PO DAILY Qty: 90 1RF oxcarbazepine 300 mg tablet 300 mg PO DAILY Qty: 90 1RF Follow up/Referrals: Ryan Penn MD [Physician] - (Your six week follow up appointment is scheduled for September 03 @2:15pm with Dr. Penn.) Discharge Health Status Multidrug resistant organism: No MDRO Diet/Activity/Treatments Diet: Diet as Tolerated Activity: As tolerated Other treatments: Prvw-vnu-iojuzxd Tylenol may be used for additional pain relief. Oyjv-iyv-kzoxguy stool softeners and/or MiraLax may be used as needed for constipation. Skin/Wound/Dressing Care Report to your healthcare provider any signs of infection, such as:: chills, fever, increased pain, unusual drainage and unusual redness Dressing: N/A Visit Report/Discharge Packet Instructions: DI for Labor and Delivery, Vaginal , DI for and Nipple Soreness, DI for Prescription Opioid Use Stand Alone Forms: Discharge: Care Discharge Data Primary Care Provider: Ramon Hilton
[2024-07-22] MEDS: LANOLIN OINT 7 GM 1 APPLIC TOP (13:12)
[2024-07-22 13:33] VITALS: BP 124/75; PULSE 91; TEMP 36.1
== END 2024-07-22 13:15 | disposition home or self-care (01) | DRG 560 ==
PROVIDERS: Admitting Provider Student in an Organized Health Care Education/Training Program; PCP Registered Nurse Diabetes Educator; Referring Provider Student in an Organized Health Care Education/Training Program; Visit Provider Student in an Organized Health Care Education/Training Program
DX: O66.0 Obstructed labor due to shoulder dystocia (principal); O76 Abnormality in fetal heart rate and rhythm complicating labor and delivery; O36.63X0 Maternal care for excessive fetal growth, third trimester, not applicable or unspecified; O99.344 Other mental disorders complicating childbirth; F31.9 Bipolar disorder, unspecified; O99.334 Smoking (tobacco) complicating childbirth; F17.290 Nicotine dependence, other tobacco product, uncomplicated; Z37.0 Single live birth; Z3A.40 40 weeks gestation of pregnancy
CPT/HCPCS: 36415; 59025; 59050; 59409; 85025; 86850; 86900; 86901; G0378; G0379; J2405; J2590

== ENCOUNTER 2024-07-26 15:42 | Observation (INO) | payer OTHER, MEDICAID, SELFPAY ==
[2024-05-03 02:08] VITALS: BMI 35.2
[2024-07-26] VITALS (14 sets, daily range): BP systolic 107–131; BP diastolic 64–94; PULSE 92–132; RESP 12–25; TEMP 36.1–36.6; O2SAT 92–97; BMI 25.7
--- NOTE | 2024-07-26 | PATH_ITS ---
[facility] Accession Number: [id number] No. of containers..01 Tissue . 01 Material submitted: . product of conception - RETAINED FRAGMENTS OF CONCEPTION . 01 Diagnosis: RETAINED PRODUCTS OF CONCEPTION: Negative for definite products of conception. MRV 07/30/2024 0938 Local . 01 Electronically signed: . Soumya Sousa MD, Pathologist NPI- [id number] . 01 Gross description: . Received in formalin with two patient identifiers and retained fragments of conception, are multiple curran and red-brown soft membranous tissue fragments aggregating to 8.1 x 4.2 x 1.5 cm. No tissue identified. Staff Physical Therapist sections submitted in cassettes A1-A2. ([id number]) . Remaining tissue submitted entirely in blocks A3-A9. (LYK:[id number]) /RANCHO 07/30/2024 0939 Local . 01 Pathologist provided ICD-10: N93.9 . 01 CPT . 826312 Specimen Comment: A courtesy copy of this report has been sent to [phone] Performed at: [address] [facility] [address], [place], [place] [id number] MD Brodie Walker MD Phone: [phone]
--- NOTE | 2024-07-26 15:50 | DI.US.S_ITS ---
PROCEDURE: US PELVIC COMPLETE INDICATIONS: 1 wk ; concern for retained products TECHNIQUE: Real-time scanning was performed of the pelvic organs, with image documentation. Additional endovaginal scanning was necessary due to incomplete visualization of the adnexal and endometrial structures by transabdominal scanning. COMPARISON: [facility], US, US OB LIMITED, 06/29/2024, 9:42. [facility], US, US PELVIC COMPLETE, 12/25/2020, 14:24. [facility], US, US PELVIC COMPLETE, 10/03/2020, 15:12. FINDINGS: Uterus: Uterus is anteverted and enlarged, measuring 16.7 x 8.9 x 10.7 cm. The myometrium is heterogenous. The endometrium measures 30 mm combined thickness. Along the central endometrium, there is an ill-defined 4.9 x 2.3 x 3.1 cm ill-defined isoechoic intraluminal mass with internal vascularity. Ovaries: The right ovary measures 4.7 x 2.6 x 2.3 cm, with a calculated ovarian volume of 14.6 cc. The left ovary measures 3.6 x 3.3 x 1.7 cm, with a calculated ovarian volume of 10.5 cc. The ovaries have a normal sonographic appearance. Less than 12 follicles can be seen in each ovary. No adnexal masses are seen. Other: No pathologic free abdominal or pelvic fluid. IMPRESSION: Endometrial intraluminal mass with internal vascularity. Given the history of recent delivery, these findings would be compatible with retained products of conception. These findings were communicated via telephone to the emergency room provider, Dr Kumar, by Jason Rodríguez MD on 07/26/2024 at 5:29 p.m.. We strive to produce accurate, complete, and clear reports of imaging services. To assist us in improving patient care, this report was composed using standard report templates and voice recognition software. Therefore, it may contain abnormal punctuation, insertions and/or omissions. Occasional wrong-word or sound-alike substitutions may occur. Though we review the report and make efforts to correct it, we do recommend that the report be read carefully in proper context to recognize any text inaccuracies. Dictated by: Jason Rodríguez M.D. on 07/26/2024 at 17:23 Approved by: Jason Rodríguez M.D. on 07/26/2024 at 17:30
--- NOTE | 2024-07-26 15:56 | DI.RAD.S_ITS ---
PROCEDURE: XR CHEST 1V INDICATIONS: suspected sepsis TECHNIQUE: One view of the chest was acquired. COMPARISON: [facility], CR, XR CHEST 1V, 09/10/2023, 9:56. [facility], CR, XR CHEST 1V, 11/03/2021, 23:31. FINDINGS: Surgical changes and devices: None. Lungs and pleura: Lungs are clear. No pleural effusions or pneumothorax. Mediastinum: Mediastinal contours appear normal. Heart size is normal. Bones and chest wall: No suspicious bony lesions. Overlying soft tissues appear unremarkable. IMPRESSION: No acute cardiothoracic process. Dictated by: Jason Rodríguez M.D. on 07/26/2024 at 17:43 Approved by: Jason Rodríguez M.D. on 07/26/2024 at 17:43
--- NOTE | 2024-07-26 16:16 | EKG_ITS ---
[address] [address] Test Date: 2024-07-26 Pat Name: Christal Jacques Department: Room: Gender: Female Emergency Medical Services Coordinator: misael : 1990 Requested By: Order Number: [id number] Reading MD: Ge Verdin MD Measurements Intervals [place] Rate: 119 P: 31 AR: 112 QRS: 30 QRSD: 76 T: 19 QT: 314 QTc: 441 Interpretive Statements Sinus tachycardia Electronically Signed On 07-27-2024 7:20:30 PST by Ge Verdin MD
[2024-07-26 16:35] LABS: Add Manual Diff / Slide Review NO; Basophils Absolute Auto 0 /uL (0-100); Basophils Percent Auto 0.3 % (0-2); Eosinophils Absolute Auto 0 /uL (0-450); Eosinophils Percent Auto 0.1 % (2-4); Hematocrit 34.2 % (36-46); Hemoglobin 11.4 g/dL (12.0-16.0); Lymphocytes Absolute Auto 2000 /uL (1100-4500); Lymphocytes Percent Auto 13.7 % (25-40); Mean Corpuscular HGB Conc 33.4 % (30-36); Mean Corpuscular Hemoglobin 29.5 PG (26-34); Mean Corpuscular Volume 88.3 fL (80-100); Monocytes Absolute Auto 1100 /uL (0-900); Monocytes Percent Auto 7.5 % (3-14); Neutrophils Absolute Auto 11400 /uL (1500-7000); Neutrophils Percent Auto 78.4 % (50-75); Platelet Count 342 X10^3/uL (150-400); Red Blood Cell Count 3.87 X10^6/uL (4.0-5.2); Red Cell Distribution Width 13.7 % (11.6-14.8); White Blood Cell Count 14.5 X10^3/uL (4.5-11.0)
[2024-07-26 16:38] LABS: INR 1.1 (0.9-1.3); Prothrombin Time 12.5 SECONDS (9.4-12.5)
[2024-07-26] MEDS: SODIUM CHLORIDE 0.9% 1,000 ML 1000 ML IV ×2 (16:40→18:00)
[2024-07-26 16:41] LABS: PTT Partial Thromboplastin Tim 30 SECONDS (25.1-36.5)
[2024-07-26 16:44] LABS: Alanine Aminotransferase 31 IU/L (<35); Albumin 3.5 g/dL (3.5-5.0); Albumin Globulin Ratio 1.1 (1.0-2.8); Alkaline Phosphatase 128 U/L (38-126); Aspartate Aminotransferase 28 IU/L (14-36); BUN Creatinine Ratio 15.9 (6-22); Bilirubin Total 0.5 mg/dL (0.2-1.3); Blood Urea Nitrogen 11 mg/dL (7-17); Calcium 8.7 mg/dL (8.4-10.2); Carbon Dioxide 22 mmol/L (22-32); Chloride 106 mmol/L (98-107); Estimated Glomerular Filt Rate > 60 mL/min (>60); Globulin 3.2 g/dL (1.7-4.1); Glucose 94 mg/dL (70-100); HEMOLYSIS < 15 (0-50); Lactate (Lactic Acid) 0.8 mmol/L (0.7-2.1); Lipase 58 U/L (23-300); Potassium 3.7 mmol/L (3.4-5.1); Sodium 134 mmol/L (137-145); Total Protein 6.7 g/dL (6.3-8.2)
[2024-07-26 17:01] LABS: Procalcitonin 0.086 ng/mL (<0.5)
--- NOTE | 2024-07-26 17:13 | ED.GENADULT ---
HPI - General Adult General Chief complaint: Vaginal Bleeding Stated complaint: Sent by MD;Hotflashes, Cramping, Vaginal Bleeding Time Seen by Provider: 07/26/24 16:08 Source: patient Mode of arrival: Ambulatory History of Present Illness HPI narrative: 33-year-old G3 now P3 status post vaginal delivery on 07/21 presents today with increasing vaginal bleeding since the . Feeling dehydrated. is going well. No other significant complaints Related Data Previous Rx's Medication Instructions Recorded folic acid 1 mg tablet 1 mg PO DAILY #90 tabs 11/24/23 vitamin with calcium 1 tab PO DAILY #90 tabs 11/24/23 no.72-iron 27 mg-folic acid 1 mg tablet (M- Plus) ferrous sulfate 325 mg (65 mg 325 mg PO DAILY #90 tabs 01/06/24 iron) tablet olanzapine 5 mg tablet 5 mg PO DAILY #90 tabs 05/04/24 oxcarbazepine 300 mg tablet 300 mg PO DAILY #90 tabs 05/04/24 ibuprofen 600 mg tablet 600 mg PO Q6HR PRN Pain, Mild 07/22/24 (1-3) #30 tabs oxycodone 5 mg tablet 5 mg PO Q6H PRN pain #10 tabs 07/22/24 Allergies Allergy/AdvReac Type Severity Reaction Status Date / Time doxycycline [DOXYCYCLINE] Allergy Intermediate Hives Verified 07/26/24 15:51 Review of Systems Review of Systems Narrative: Pertinent positive and negative findings as per HPI Patient History Medical History Substance abuse in remission Pyelonephritis (~2022) Sepsis (~2022) PID (acute pelvic inflammatory disease) (~2022) Severe auditory hallucinations anxiety Anemia Anovulation Nightmares Cervical dysplasia Encounter for IUD insertion (~05/07/23) Encounter for supervision of other normal , unspecified trimester Surgical History [place] teeth extracted (~2017) History of cholecystectomy History of gynecologic surgery (~2012) Family History Father Diabetes mellitus History of heart disease Hyperlipidemia Hypertension Mother Ovarian cancer Multiple sclerosis Colostomy in place Grandmother Diabetes mellitus Aunt Breast cancer Social History marital status: unmarried,living together number of children: 3 (includes partner's daughter; also sometimes his other child stays on weekends) household members: children lives independently: Yes caregiver/support person: Yes housing: house (separate house on parent's property) pets and animals: Yes (cats, les - daughter to do litter box now) education level: college (some college) occupational status: employed current occupational exposures/hazards: No special antoni needs: No travel history: over 6 months ago seatbelt use: always helmet use: No water heater temp set < 120 deg: Yes working smoke detector in home: Yes fire extinguisher in home: No carbon monox detector in home: Yes firearms in home: No do you feel safe at home: Yes in current or past relationships, have you been: threatened and made to feel afraid Smoking Status: Current every day smoker Tobacco: How many years used: 9 (Started age 24) quit status: considering quitting second hand exposure: No alcohol intake: former substance use type: former substance user and marijuana (not recently) during the past year weight has: other (fluctuates) well-balanced diet: daily or most days daily servings fruits/ve-4 caffeine: Yes (going to now limit it to 200mg) Type(s) of exercise: none Smoking Status: Current every day smoker tobacco type: vaping alcohol intake frequency: other Alcohol type: other Substance Use Type: former substance user and marijuana Exam Initial Vital Signs Initial Vital Signs: Vital Signs Temperature 97.8 F 07/26/24 15:42 Pulse Rate 132 H 07/26/24 15:42 Respiratory Rate 14 07/26/24 15:42 Blood Pressure 118/77 07/26/24 15:42 Pulse Oximetry 97 07/26/24 15:42 Oxygen Delivery Method Room Air 07/26/24 15:42 General: Alert appropriate in no acute distress, appears fatigued, slightly pale Respiratory: Able to speak in full sentences, no obvious respiratory distress Cardiac: Tachycardic without murmur Abdomen: Fundus below the umbilicus. Moderate lochia still appreciated, minimal tenderness Skin: No obvious rashes, warm and dry Neurologic: Grossly intact no obvious asymmetries or abnormalities Psych: appropriate insight and affect, cooperative Course Orders Ordered: ED Orders 07/26/24 15:50 US pelvic complete Stat 07/26/24 15:56 XR chest 1V Stat Blood Culture Stat EKG-12 Lead Stat RT Consult Eval and Treat NOW 07/26/24 16:05 Complete Blood Count AUTO DIFF Stat Comprehensive Metabolic Panel Stat Lactate (Lactic Acid) Stat Lipase Stat PTT Partial Thromboplastin Jonas Stat Procalcitonin Stat Prothrombin Time INR Stat Ondansetron HCl (Ondansetron 4 Mg/2 Ml Inj) 4 mg IV NOW PRN PRN Reason: Nausea And Vomiting Ondansetron HCl (Ondansetron 4 Mg Odt) 4 mg SL NOW PRN PRN Reason: Nausea And Vomiting Discontinued Medications Sodium Chloride (Normal Saline 0.9%) 1,000 mls @ 1,000 mls/hr IV BOLUS ONE Stop: 07/26/24 16:55 Last Infusion: 07/26/24 17:59 Dose: Infused Documented By: Admin: 07/26/24 16:40 Dose: 1,000 mls/hr Documented By: SCOUT Sodium Chloride (Normal Saline 0.9%) 1,000 mls @ 1,000 mls/hr IV BOLUS ONE Stop: 07/26/24 17:16 Last Admin: 07/26/24 18:00 Dose: 1,000 mls/hr Documented By: SCOUT Vital Signs Vital signs: Vital Signs - 8 hr 07/26/24 15:42 07/26/24 15:50 07/26/24 15:50 Temperature 97.8 F Pulse Rate 132 H Respiratory Rate 14 Blood Pressure 118/77 118/77 Pulse Oximetry 97 97 Oxygen Delivery Method Room Air 07/26/24 16:00 07/26/24 16:30 07/26/24 16:44 Temperature Pulse Rate 125 H Respiratory Rate Blood Pressure 107/64 Pulse Oximetry 97 96 Oxygen Delivery Method 07/26/24 16:44 07/26/24 17:00 07/26/24 17:00 Temperature Pulse Rate 108 H 117 H Respiratory Rate 22 Blood Pressure 111/70 Pulse Oximetry 94 95 Oxygen Delivery Method Room Air Room Air Medical Decision Making Lab Data 07/26/24 16:05 07/26/24 16:05 Labs: Lab Results 07/26/24 Range/Units 16:05 WBC 14.5 H (4.5-11.0) X10^3/uL RBC 3.87 L (4.0-5.2) X10^6/uL Hgb 11.4 L (12.0-16.0) g/dL Hct 34.2 L (36-46) % MCV 88.3 (80-100) fL MCH 29.5 (26-34) PG MCHC 33.4 (30-36) % RDW 13.7 (11.6-14.8) % Plt Count 342 (150-400) X10^3/uL Neut % (Auto) 78.4 H (50-75) % Lymph % (Auto) 13.7 L (25-40) % Sequoyah % (Auto) 7.5 (3-14) % Eos % (Auto) 0.1 L (2-4) % Baso % (Auto) 0.3 (0-2) % Neut # (Auto) 75891 H (5470-3009) /uL Lymph # (Auto) 2000 (8394-3506) /uL Sequoyah # (Auto) 1100 H (0-900) /uL Eos # (Auto) 0 (0-450) /uL Baso # (Auto) 0 (0-100) /uL PT 12.5 (9.4-12.5) SECONDS INR 1.1 (0.9-1.3) APTT 30 (25.1-36.5) SECONDS Sodium 134 L (137-145) mmol/L Potassium 3.7 (3.4-5.1) mmol/L Chloride 106 (98-107) mmol/L Carbon Dioxide 22 (22-32) mmol/L BUN 11 (7-17) mg/dL Creatinine 0.69 (0.52-1.04) mg/dL Estimated GFR > 60 (>60) mL/min BUN/Creatinine Ratio 15.9 (6-22) Glucose 94 (70-100) mg/dL Lactate 0.8 (0.7-2.1) mmol/L Calcium 8.7 (8.4-10.2) mg/dL Total Bilirubin 0.5 (0.2-1.3) mg/dL AST 28 (14-36) IU/L ALT 31 (<35) IU/L Alkaline Phosphatase 128 H (38-126) U/L Total Protein 6.7 (6.3-8.2) g/dL Albumin 3.5 (3.5-5.0) g/dL Globulin 3.2 (1.7-4.1) g/dL Albumin/Globulin Ratio 1.1 (1.0-2.8) Lipase 58 (23-300) U/L Procalcitonin 0.086 (<0.5) ng/mL MDM Narrative Medical decision making narrative: CC: Increased vaginal bleeding Complicating co-morbidities: Delivered on the , increased bleeding noticed on the seen in the ER on the Data collected from: patient Medical records reviewed: OB records reviewed Differential considered: Retained products, laceration, DIC, Exam documented above, pertinent findings include: Moderate amount of bleeding, slightly pale, tachycardic no significant abdominal/uterine tenderness Lab Test results independently reviewed as above. Pertinent findings: CBC shows hemoglobin of 11.4 down from 12.1 at time of discharge. Mild leukocytosis at 14.5 with no significant left shift Independently reviewed EKG: Sinus tachycardia at a rate of 119. No acute ischemic changes Imaging studies independently reviewed: Preliminary report from ultrasound does show retained products with blood flow to the area Treatments: 2 L of fluid, Discussion: Patient is seen and evaluated by Dr. Zamora, [facility], in the emergency department. She will be taken to the OR for D and C for retained products of conception with continued bleeding and tachycardia. Discharge Plan Departure Patient Disposition: Admitted to Surgery Clinical Impression: Retained placenta parts or membranes, Admit Date/Time: 07/26/24 18:24 Admit Provider: Alba Zamora
--- NOTE | 2024-07-26 18:35 | PM.GYNHP.1 ---
History of Present Illness History of Present Illness Reason for admission: vaginal bleeding Narrative: Christal Jacques is a 33 year old female 3 para 3 6 days status post a spontaneous vaginal delivery of an 11 lb 12 oz baby. She called the office earlier today with passing clots and soaking through pads 4 to 5 times a day. In the emergency department she was tachycardic into the 130s. On ultrasound: FINDINGS: Uterus: Uterus is anteverted and enlarged, measuring 16.7 x 8.9 x 10.7 cm. The myometrium is heterogenous. The endometrium measures 30 mm combined thickness. Along the central endometrium, there is an ill-defined 4.9 x 2.3 x 3.1 cm ill-defined isoechoic intraluminal mass with internal vascularity. [facility] Medical History Substance abuse in remission Pyelonephritis (~2022) Sepsis (~2022) PID (acute pelvic inflammatory disease) (~2022) Severe auditory hallucinations anxiety Anemia Anovulation Nightmares Cervical dysplasia Encounter for IUD insertion (~05/07/23) Encounter for supervision of other normal , unspecified trimester Surgical History [place] teeth extracted (~2017) History of cholecystectomy History of gynecologic surgery (~2012) Family History Father Diabetes mellitus History of heart disease Hyperlipidemia Hypertension Mother Ovarian cancer Multiple sclerosis Colostomy in place Grandmother Diabetes mellitus Aunt Breast cancer Social History marital status: unmarried,living together number of children: 3 (includes partner's daughter; also sometimes his other child stays on weekends) household members: children lives independently: Yes caregiver/support person: Yes housing: house (separate house on parent's property) pets and animals: Yes (cats, chihuahua - daughter to do litter box now) education level: college (some college) occupational status: employed current occupational exposures/hazards: No special antoni needs: No travel history: over 6 months ago seatbelt use: always helmet use: No water heater temp set < 120 deg: Yes working smoke detector in home: Yes fire extinguisher in home: No carbon monox detector in home: Yes firearms in home: No do you feel safe at home: Yes in current or past relationships, have you been: threatened and made to feel afraid Smoking Status: Current every day smoker Tobacco: How many years used: 9 (Started age 24) quit status: considering quitting second hand exposure: No alcohol intake: former substance use type: former substance user and marijuana (not recently) during the past year weight has: other (fluctuates) well-balanced diet: daily or most days daily servings fruits/ve-4 caffeine: Yes (going to now limit it to 200mg) Type(s) of exercise: none Meds Home Medications and Allergies Home Medications Medication Instructions Recorded Confirmed Type folic acid 1 mg tablet 1 mg PO DAILY #90 tabs 11/24/23 07/20/24 Rx vitamin with calcium 1 tab PO DAILY #90 tabs 11/24/23 07/20/24 Rx no.72-iron 27 mg-folic acid 1 mg tablet (M-Allyson Plus) ferrous sulfate 325 mg (65 mg 325 mg PO DAILY #90 tabs 01/06/24 07/20/24 Rx iron) tablet olanzapine 5 mg tablet 5 mg PO DAILY #90 tabs 05/04/24 07/20/24 Rx oxcarbazepine 300 mg tablet 300 mg PO DAILY #90 tabs 05/04/24 07/20/24 Rx ibuprofen 600 mg tablet 600 mg PO Q6HR PRN Pain, Mild 07/22/24 Rx (1-3) #30 tabs oxycodone 5 mg tablet 5 mg PO Q6H PRN pain #10 tabs 07/22/24 Rx Allergies Allergy/AdvReac Type Severity Reaction Status Date / Time doxycycline [DOXYCYCLINE] Allergy Intermediate Hives Verified 07/26/24 15:51 Exam Vital Signs (past 8 hours): - 07/26/24 15:42 07/26/24 15:50 07/26/24 15:50 Temperature 97.8 F Pulse Rate 132 H Respiratory Rate 14 Blood Pressure 118/77 118/77 Pulse Oximetry 97 97 Oxygen Delivery Method Room Air 07/26/24 16:00 07/26/24 16:30 07/26/24 16:44 Temperature Pulse Rate 125 H Respiratory Rate Blood Pressure 107/64 Pulse Oximetry 97 96 Oxygen Delivery Method 07/26/24 16:44 07/26/24 17:00 07/26/24 17:00 Temperature Pulse Rate 108 H 117 H Respiratory Rate 22 Blood Pressure 111/70 Pulse Oximetry 94 95 Oxygen Delivery Method Room Air Room Air Oxygen Delivery Method Room Air Narrative Exam Narrative: HEENT: [No thyromegaly, no anterior cervical or supraclavicular lymphadenopathy.] Lungs:[Clear to auscultation bilaterally, no wheezes.] Cardiovascular: [Regular rate and rhythm, no murmurs, rubs, or gallops]. Abdomen: [Well-healed laparoscopy scars. No hepatosplenomegaly. No masses palpable.] External genitalia: Blood Vagina: Blood and clots Cervix: Open Bimanual exam: [[14] Week size anteverted uterus. Mobile.] Extremities: No edema Objective Labs 07/26/24 16:05 07/26/24 16:05 Labs: Laboratory Results - last 24 hr 07/26/24 16:05 WBC 14.5 H RBC 3.87 L Hgb 11.4 L Hct 34.2 L MCV 88.3 MCH 29.5 MCHC 33.4 RDW 13.7 Plt Count 342 Neut % (Auto) 78.4 H Lymph % (Auto) 13.7 L [place] % (Auto) 7.5 Eos % (Auto) 0.1 L Baso % (Auto) 0.3 Neut # (Auto) 86930 H Lymph # (Auto) 2000 [place] # (Auto) 1100 H Eos # (Auto) 0 Baso # (Auto) 0 PT 12.5 INR 1.1 APTT 30 Sodium 134 L Potassium 3.7 Chloride 106 Carbon Dioxide 22 BUN 11 Creatinine 0.69 Estimated GFR > 60 BUN/Creatinine Ratio 15.9 Glucose 94 Lactate 0.8 Calcium 8.7 Total Bilirubin 0.5 AST 28 ALT 31 Alkaline Phosphatase 128 H Total Protein 6.7 Albumin 3.5 Globulin 3.2 Albumin/Globulin Ratio 1.1 Lipase 58 Procalcitonin 0.086 Assessment & Plan Assessment & Plan narrative: Assessment: 33-year-old 3 para 3 with retained products of conception Brisk vaginal bleeding with tachycardia Plan: Suction D and C The risks, benefits, and alternatives to the procedure were explained to the patient. The risks including bleeding, infection, and uterine perforation. She understands these risks and agrees to proceed. A full par Q was held and consent form was signed. Time-Based Coding :: [TOTAL MINUTES] spent with patient and on the chart (including review of chart, obtaining history, exam, reviewing outside data, placing orders, documenting exam and treatment plan, and counseling patient) on [DATE].
--- NOTE | 2024-07-26 18:39 | PM.PREOP ---
Pre-operative Note Interval Note History & Physical reviewed/Exam performed by Physician: Yes Changes to H&P: No H&P completed within 30 days and has changed as indicated here:: 07/26/24
--- NOTE | 2024-07-26 19:32 | PM.GYNOP.1 ---
Operative Date/Time/Diagnoses Date of procedure: 07/26/24 Time of procedure: 19:32 Pre-op diagnosis: Brisk vaginal bleeding Retained products of conception on ultrasound Post-op diagnosis: same Procedure & Clinicians Procedure: Procedures Operation Date: 07/26/24 19:00 <No data on this case meets the specified criteria> Indications: 33-year-old 3 para 3 6 days status post a spontaneous vaginal delivery of an 11 lb 12 oz baby. She reports increased bleeding over the last 24 hours. She began passing clots and soaking through pads 4 to 5 times a day. Maternal heart rate in the 130s. Surgeon: Alba Zamora Anesthesia Type: General Operative Notes Findings: 12 week size anteverted uterus Large amount of old clot and tissue in the uterus Closure Type: not applicable Specimen(s): uterine contents and products of conception Applied: catheter (In and out catheter with 600 cc of clear yellow urine) Estimated blood loss (mL): 150 Blood products transfused: none Procedure in detail: After informed consent was obtained, the patient was taken to the operating room and placed in the dorsal supine position. After GET anesthesia was achieved, she was placed in the dorsal lithotomy position and prepped and draped in the usual sterile fashion. A time out was performed. The vagina was emptied of 600cc of clear yellow urine. A bivalve speculum was placed into the vagina. A single tooth tenaculum was placed on the anterior lip of the cervix. The cervix was dilated to #10 Hegar dilator. Using the #10 plastic dilator, curretage was performed. A large amount of old blood and tissue were obtained. The catheter was removed. Sharp curettage was performed and a small amount of tissue was obtained. The instruments were removed from the uterus. The single tooth tenaculum was removed from the anterior lip of the cervix. The speculum was removed from the vagina. Sponge, lap and instrument count were correct x 2. The patient tolerted the procedure well and was taken to PACU in stable condition. Complications: none Post-operative Condition: stable Disposition: PACU Plan for aftercare: Home after recovery
[2024-07-26] MEDS: KETOROLAC 30 MG/ML VIAL IV (19:55)
--- NOTE | 2024-07-26 19:57 | SUR.OPER ---
Lithotomy on padded OR bed, head on pillow, arms secured on padded arm boards at <90 degrees abduction. Legs secured in padded yellow fins stirrups.
== END 2024-07-26 20:34 | disposition home or self-care (01) ==
LOC: ED 16:17 → AC 18:25
PROVIDERS: Admitting Provider Obstetrics & Gynecology; Emergency Provider Emergency Medicine; PCP Registered Nurse Diabetes Educator; Referring Provider Emergency Medicine; Visit Provider Obstetrics & Gynecology
PROC: (CPT 58120; principal; 2024-07-26 19:00)
DX: O72.1 Other immediate postpartum hemorrhage (principal); O99.893 Other specified diseases and conditions complicating puerperium; R00.0 Tachycardia, unspecified
CPT/HCPCS: 59160; 36415; 71045; 76856; 80053; 83605; 83690; 84145; 85025; 85610; 85730; 87040; 93005; 93010; 96360; 96361; 99284; G0378; J0330; J1100; J1885; J2405; J2704; J3010

== ENCOUNTER → 2024-08-09 13:44 | Outpatient (CLI) | payer OTHER, MEDICAID, SELFPAY ==
[2024-05-03 02:08] VITALS: BMI 35.2
== END ==
PROVIDERS: PCP Registered Nurse Diabetes Educator; Visit Provider Registered Nurse Diabetes Educator
DX: R30.0 Dysuria (principal)
CPT/HCPCS: 81002; 87077; 87086; 87186

== ENCOUNTER → 2024-11-10 15:10 | Outpatient (CLI) | payer OTHER, SELFPAY ==
[2024-05-03 02:08] VITALS: BMI 35.2
[2024-11-10 16:31] LABS: Influenza A - CEPHEID Flu A NEGATIVE (NEGATIVE); Influenza B - CEPHEID Flu B NEGATIVE (NEGATIVE); Respiratory Syncytial Virus Negative (Negative)
[2024-11-10 16:32] LABS: COVID-19 CEPHEID 4-PLEX PCR Negative (Negative)
== END ==
PROVIDERS: Family Provider Registered Nurse Diabetes Educator; PCP Registered Nurse Diabetes Educator; Visit Provider Registered Nurse Diabetes Educator
DX: R05.1 Acute cough (principal); R09.81 Nasal congestion
CPT/HCPCS: 87635; 87400; 87420; 0241U

== ENCOUNTER 2024-12-02 14:30 | Outpatient (RCR) | payer OTHER, SELFPAY ==
[2024-05-03 02:08] VITALS: BMI 35.2
--- NOTE | 2024-11-02 16:00 | PT.OPPOC ---
Physical, Occupational & Speech Therapy At [facility] Current Diagnoses Stress incontinence (female) (male) (11/02/24) Pelvic muscle wasting (11/02/24) Frequency of micturition (11/02/24) Nocturia (11/02/24) Visit Care Team Role Provider Type LISSA Marcelino Attending Provider [employer] Attendants Supervisor Family Provider Primary Care Provider Referring Provider Specialty: Medical Address: [address] [place] [address], [facility] Email: [email or web address] Plan Of Care PT-OP-B Current Condition Start: 10/27/24 12:10 Freq: Status: Active Protocol: Document 11/02/24 15:15 [facility] (Rec: 11/02/24 15:31 [facility] [id number]) Current Condition History of Current Condition Onset Date 3 months ago with vaginal delivery Current Complaints urinary stress incontinence History of Current Condition 3 months with her 3rd baby who was11 lbs 13 oz, she reports no tearing or stitches. She has two older children including a 15 year old daughter and 2 year old son. She does void approx 15 times per day. She does have a history of UTI. She does feel pressure in her pelvis but has felt it for a long time. Nocturia x 2 times per night, this is new since having her baby. Treatment Goals Patient/Caregiver Goals pts goals include reducing urinary stress incontinence, reducing urgency and frequency of voids Current Functional Impairments (Reported) Functional Limitations- ADL's limited with ADL's due to leakage as leakage increases with activity Functional Limitations- Mobility/Gait Limited in her ability to exercise due to pelvic pressure and stress incontinence PT-OP-T Assessment and Plan Start: 10/27/24 12:10 Freq: Status: Active Protocol: Document 11/02/24 15:15 [facility] (Rec: 11/02/24 15:58 [facility] [id number]) Physical Therapy Assessment Rehab Potential Rehabilitation Potential Excellent Evaluation Complexity Number of Personal Factors/Comorbidities 3 or More Number of Body Systems Impaired 3 Clinical Presentation at Evaluation Evolving Impairments Impairments Activity Tolerance,Functional Activities,Soft Tissue Mobility,Strength,Tone Other Impairments urinary urgency and frequency, nocturia x 2, pain with intercourse Goals 3 Impairment Decreased endurance of the pelvic floor Short Term Goal (STG) Christal is able to sustain a pelvic floor contraction in supine x 10 seconds STG Duration 5 weeks Long-Term Goal (LTG) Christal is able to sustain a pelvic floor contraction in standing x 5 seconds and when lifting her baby and or the car seat. LTG Duration 8 weeks 2 Impairment pelvic floor weakness with MMT of 1/5 for lateral simeon and unable to elicit a pelvic floor contraction for the anterior and posterior wall Short Term Goal (STG) Christal is able to facilitate a pelvic floor contraction of all simeon of the levator ani STG Duration 4 weeks [employer] Goal (LTG) Christal demonstrates improved strength of the levator ani with 2/5 MMT or better LTG Duration 8 weeks 1 Impairment urinary stress incontinence Long-Term Goal (LTG) Christal notes a overall reduction of urinary stress incontinence symptoms LTG Duration 8 weeks Assessment Summary Assessment Christal is a 34 year old female who is 3 months referred for urinary stress incontinence symptoms. Christal reports she is leaking daily and the amount per day can vary. She will note she leaks through her underwear. She is wearing mini pads for protection. Leaking in increased with light activity however sometime just getting up from the floor she will not leakage. She also describes urinary urgency and is voiding 15-19 times per day and 2 times at night. With exam Christal is very weak in her pelvic floor. I was only able to palpate a pelvic floor contraction on her lateral simeon with hip adduction assist. I am not able to feel a palpable contraction of the anterior or posterior wall of the levator ani. She does also describe symptoms of pelvic pressure and there is a grade 1 cystocele present today. Christal is a good candidate for pelvic floor PT working on both strength and endurance of the pelvic floor. Treatment will also include review bladder irritants with a bladder diary, education in the urge deference technique and bladder retraining. Physical Therapy Plan Frequency and Duration Frequency of Treatment 1x/Week Duration of treatment (weeks) 8 Plan of Care Start Date 11/02/24 Plan of Care End Date 12/28/24 Therapeutic Interventions Therapeutic Interventions Home Exercise Program, Neuromuscular Re-education, Patient/Caregiver Education, Self-Care/Home Management, Therapeutic Exercises Modalities Biofeedback Next Visit Focus/Plan Next Note Type Treatment Note Next Visit Plan review bladder diary, teach urge deference technique and pelvic floor strength and endurance training Plan of Care Dates Plan of Care Start Date 11/02/24 Plan of Care End Date 12/28/24 Electronically Signed by: Rosanna Erwin, PT 11/04/24 9820 If you are in agreement with this Plan of Care, please return a signed and dated copy. I have reviewed this Plan of Care and certify that the skilled therapy services above are required to meet the patient?s needs. Physician Signature Date Printed Name and Credentials Clinical Instructor Signature Printed Name and Credentials
--- NOTE | 2024-11-02 16:00 | PT.OIE ---
Current Diagnoses Stress incontinence (female) (male) (11/02/24) Pelvic muscle wasting (11/02/24) Frequency of micturition (11/02/24) Nocturia (11/02/24) Past Medical History (Last Updated 10/08/24 @ 16:43 by LISSA Marcelino) Anemia Anovulation Cervical dysplasia Encounter for IUD insertion (~05/07/23) Encounter for supervision of other normal , unspecified trimester History of cervical dysplasia Nightmares PID (acute pelvic inflammatory disease) (~2022) anxiety Pyelonephritis (~2022) Retained placenta parts or membranes, Sepsis (~2022) Severe auditory hallucinations Substance abuse in remission Past Surgical History (Last Reviewed 10/08/24 @ 16:16 by LISSA Marcelino) History of cholecystectomy History of gynecologic surgery (~2012) Walker teeth extracted (~2017) Visit Care Team Role Provider Type LISSA Marcelino Attending Provider Advanced Taxi Driver Supervisor Family Provider Primary Care Provider Referring Provider Specialty: Medical Address: [address] [place] [address] Email: [email or web address] Physical Therapy Initial Evaluation PT-OP-A Visit Information Start: 10/27/24 12:10 Freq: Status: Active Protocol: Document 11/02/24 15:55 [facility] (Rec: 11/02/24 15:58 [facility] [id number]) Out-Patient Physical Therapy Visit Information Visit Information Visit Type Initial Evaluation Visit Start Time 15:15 Visit Stop Time 15:45 Visit Number 1 Evaluation Information Evaluation Date 11/02/24 PT-OP-B Current Condition Start: 10/27/24 12:10 Freq: Status: Active Protocol: Document 11/02/24 15:15 [facility] (Rec: 11/02/24 15:31 [facility] [id number]) Current Condition History of Current Condition Onset Date 3 months ago with vaginal delivery Current Complaints urinary stress incontinence History of Current Condition 3 months post with her 3rd baby who was11 lbs 13 oz, she reports no tearing or stitches. She has two older children including a 15 year old daughter and 2 year old son. She does void approx 15 times per day. She does have a history of UTI. She does feel pressure in her pelvis but has felt it for a long time. Nocturia x 2 times per night, this is new since having her baby. Treatment Goals Patient/Caregiver Goals pts goals include reducing urinary stress incontinencel reducing urgency and frequency of voids Current Functional Impairments (Reported) Functional Limitations- ADL's limited with ADL's due to leakage as leakage increases with activity Functional Limitations- Mobility/Gait Limited in her ability to exercise due to pelvic pressure and stress incontinence PT-OP-C Subjective Start: 10/27/24 12:10 Freq: Status: Active Protocol: Document 11/02/24 15:15 [facility] (Rec: 11/04/24 14:45 [facility] [id number]) Patient Questionnaires Pelvic Pain and Urgency/Frequency Patient Symptom Scale Pelvic Pain Score 20 PT-OP-I Pelvic Floor Start: 11/02/24 15:59 Freq: Status: Active Protocol: Document 11/02/24 15:15 [facility] (Rec: 11/02/24 16:03 [facility] [id number]) Pelvic Floor Assessment Urine Pelvic Floor Surgery No: 3 vaginal deliveries Urinary Symptoms Urge Sensation,Incomplete Emptying,Falling Out Feeling/ Heavy Leakage Size Medium Leakage Cause Cough,Exercise,Lifting,Sneeze, Urge Other Leakage Causes Christal notes leakage with getting up from the floor and if she chops wood Leaks Per Day 1-3 Voiding Frequency 15-19 times per day Nocturia 2 Urine Pad Type Panty Liner Pelvic Clock Pelvic Clock 12-3 Atrophy Pelvic Clock 3-6 Atrophy Pelvic Clock 6-9 Atrophy Pelvic Clock 9-12 Atrophy Prolapse Cystocele Grade 1 Contraction Ability Voluntary Contraction Weak Voluntary Relaxation Weak Manual Muscle Testing Left 1 Manual Muscle Testing Right 1 Manual Muscle Testing Anterior 0 Manual Muscle Testing Posterior 0 Muscle Endurance (Seconds) 3 Comments Pelvic Floor Comments pelvic floor weakness throughout the pelvic clock, I am not able to feel a contraction at the posterior or anterior wall, with adductor assist I am able to palpate a contraction on both right and left lateral simeon, poor endurance PT-OP-Q Treatments Start: 10/27/24 12:10 Freq: Status: Active Protocol: Document 11/02/24 15:55 [facility] (Rec: 11/02/24 15:58 [facility] [id number]) Therapeutic Exercises Supine Exercises pelvic floor long holds Reps/Minutes started with 3-5 sec hold and relax x 5 sec in between 2 times per day PT-OP-T Assessment and Plan Start: 10/27/24 12:10 Freq: Status: Active Protocol: Document 11/02/24 15:15 [facility] (Rec: 11/02/24 15:58 [facility] [id number]) Physical Therapy Assessment Rehab Potential Rehabilitation Potential Excellent Evaluation Complexity Number of Personal Factors/Comorbidities 3 or More Number of Body Systems Impaired 3 Clinical Presentation at Evaluation Evolving Impairments Impairments Activity Tolerance,Functional Activities,Soft Tissue Mobility,Strength,Tone Other Impairments urinary urgency and frequency, nocturia x 2, pain with intercourse Goals 3 Impairment Decreased endurance of the pelvic floor Short Term Goal (STG) Christal is able to sustain a pelvic floor contraction in supine x 10 seconds STG Duration 5 weeks Custodial Goal (LTG) Christal is able to sustain a pelvic floor contraction in standing x 5 seconds and when lifting her baby and or the car seat. LTG Duration 8 weeks 2 Impairment pelvic floor weakness with MMT of 1/5 for lateral simeon and unable to elicit a pelvic floor contraction for the anterior and posterior wall Short Term Goal (STG) Christal is able to facilitate a pelvic floor contraction of all simeon of the levator ani STG Duration 4 weeks Airline Security Representative Goal (LTG) Christal demonstrates improved strength of the levator ani with 2/5 MMT or better LTG Duration 8 weeks 1 Impairment post urinary stress incontinence Airline Security Representative Goal (LTG) Christal notes a overall reduction of urinary stress incontinence symptoms LTG Duration 8 weeks Assessment Summary Assessment Christal is a 34 year old female who is 3 months post referred for urinary stress incontinence symptoms. Christal reports she is leaking daily and the amount per day can vary. She will note she leaks through her underwear. She is wearing mini pads for protection. Leaking in incresed with light activity however sometime just getting up from the floor she will not leakage. She also describes urinary urgency and is voiding 15-19 times per day and 2 times at night. With exam Christal is very weak in her pelvic floor. I was only able to palpate a pelvic floor contraction on her lateral simeon with hip adduction assist. I am not able to feel a palpable contraction of the anterior or posterior wall of the levator ani. She does also describe symptoms of pelvic pressure and there is a grade 1 cystocele present today. Christal is a good candidate for pelvic floor PT working on both strength and endurance of the pelvic floor. Treatment will also include review bladder irritants with a bladder diary, education in the urge deference technique and bladder retraining. Physical Therapy Plan Frequency and Duration Frequency of Treatment 1x/Week Duration of treatment (weeks) 8 Plan of Care Start Date 11/02/24 Plan of Care End Date 12/28/24 Therapeutic Interventions Therapeutic Interventions Home Exercise Program, Neuromuscular Re-education, Patient/Caregiver Education, Self-Care/Home Management, Therapeutic Exercises Modalities Biofeedback Next Visit Focus/Plan Next Note Type Treatment Note Next Visit Plan review bladder diary, teach urge deference technique and pelvic floor strength and endurance training
--- NOTE | 2024-11-04 15:06 | PT.OPPOC ---
Physical, Occupational & Speech Therapy At [facility] Current Diagnoses Stress incontinence (female) (male) (11/02/24) Pelvic muscle wasting (11/02/24) Frequency of micturition (11/02/24) Nocturia (11/02/24) Visit Care Team Role Provider Type LISSA Marcelino Attending Provider Advanced Manager Actuarial Family Provider Primary Care Provider Referring Provider Specialty: Medical Address: [address] [place] [address], [facility] Email: [email or web address] Plan Of Care PT-OP-B Current Condition Start: 10/27/24 12:10 Freq: Status: Active Protocol: Document 11/02/24 15:15 [facility] (Rec: 11/02/24 15:31 [facility] [id number]) Current Condition History of Current Condition Onset Date 3 months ago with vaginal delivery Current Complaints urinary stress incontinence History of Current Condition 3 months with her 3rd baby who was11 lbs 13 oz, she reports no tearing or stitches. She has two older children including a 15 year old daughter and 2 year old son. She does void approx 15 times per day. She does have a history of UTI. She does feel pressure in her pelvis but has felt it for a long time. Nocturia x 2 times per night, this is new since having her baby. Treatment Goals Patient/Caregiver Goals pts goals include reducing urinary stress incontinence, reducing urgency and frequency of voids Current Functional Impairments (Reported) Functional Limitations- ADL's limited with ADL's due to leakage as leakage increases with activity Functional Limitations- Mobility/Gait Limited in her ability to exercise due to pelvic pressure and stress incontinence PT-OP-T Assessment and Plan Start: 10/27/24 12:10 Freq: Status: Active Protocol: Document 11/02/24 15:15 [facility] (Rec: 11/02/24 15:58 [facility] [id number]) Physical Therapy Assessment Rehab Potential Rehabilitation Potential Excellent Evaluation Complexity Number of Personal Factors/Comorbidities 3 or More Number of Body Systems Impaired 3 Clinical Presentation at Evaluation Evolving Impairments Impairments Activity Tolerance,Functional Activities,Soft Tissue Mobility,Strength,Tone Other Impairments urinary urgency and frequency, nocturia x 2, pain with intercourse Goals 3 Impairment Decreased endurance of the pelvic floor Short Term Goal (STG) Christal is able to sustain a pelvic floor contraction in supine x 10 seconds STG Duration 5 weeks Prison Goal (LTG) Christal is able to sustain a pelvic floor contraction in standing x 5 seconds and when lifting her baby and or the car seat. LTG Duration 8 weeks 2 Impairment pelvic floor weakness with MMT of 1/5 for lateral simeon and unable to elicit a pelvic floor contraction for the anterior and posterior wall Short Term Goal (STG) Christal is able to facilitate a pelvic floor contraction of all simeon of the levator ani STG Duration 4 weeks Credentialer Goal (LTG) Christal demonstrates improved strength of the levator ani with 2/5 MMT or better LTG Duration 8 weeks 1 Impairment urinary stress incontinence Prison Goal (LTG) Christal notes a overall reduction of urinary stress incontinence symptoms LTG Duration 8 weeks Assessment Summary Assessment Christal is a 34 year old female who is 3 months referred for urinary stress incontinence symptoms. Christal reports she is leaking daily and the amount per day can vary. She will note she leaks through her underwear. She is wearing mini pads for protection. Leaking in increased with light activity however sometime just getting up from the floor she will not leakage. She also describes urinary urgency and is voiding 15-19 times per day and 2 times at night. With exam Christal is very weak in her pelvic floor. I was only able to palpate a pelvic floor contraction on her lateral simeon with hip adduction assist. I am not able to feel a palpable contraction of the anterior or posterior wall of the levator ani. She does also describe symptoms of pelvic pressure and there is a grade 1 cystocele present today. Christal is a good candidate for pelvic floor PT working on both strength and endurance of the pelvic floor. Treatment will also include review bladder irritants with a bladder diary, education in the urge deference technique and bladder retraining. Physical Therapy Plan Frequency and Duration Frequency of Treatment 1x/Week Duration of treatment (weeks) 8 Plan of Care Start Date 11/02/24 Plan of Care End Date 12/28/24 Therapeutic Interventions Therapeutic Interventions Home Exercise Program, Neuromuscular Re-education, Patient/Caregiver Education, Self-Care/Home Management, Therapeutic Exercises Modalities Biofeedback Next Visit Focus/Plan Next Note Type Treatment Note Next Visit Plan review bladder diary, teach urge deference technique and pelvic floor strength and endurance training Plan of Care Dates Plan of Care Start Date 11/02/24 Plan of Care End Date 12/28/24 Electronically Signed by: Rosanna Erwin, PT 11/04/24 6552 If you are in agreement with this Plan of Care, please return a signed and dated copy. I have reviewed this Plan of Care and certify that the skilled therapy services above are required to meet the patient?s needs. Physician Signature Date Printed Name and Credentials Clinical Instructor Signature Printed Name and Credentials
--- NOTE | 2024-11-10 12:22 | PT.OTN ---
Current Diagnoses Stress incontinence (female) (male) (11/10/24) Pelvic muscle wasting (11/10/24) Frequency of micturition (11/10/24) Nocturia (11/10/24) Physical Therapy Treatment Note PT-OP-A Visit Information Start: 10/27/24 12:10 Freq: Status: Active Protocol: Document 11/10/24 11:28 [facility] (Rec: 11/10/24 11:45 [facility] [id number]) Out-Patient Physical Therapy Visit Information Visit Information Visit Type Treatment Note Visit Start Time 11:30 Visit Stop Time 12:15 Visit Number 2 Evaluation Information Evaluation Date 11/02/24 PT-OP-B Current Condition Start: 10/27/24 12:10 Freq: Status: Active Protocol: Document 11/02/24 15:15 [facility] (Rec: 11/02/24 15:31 [facility] [id number]) Current Condition History of Current Condition Onset Date 3 months ago with vaginal delivery Current Complaints urinary stress incontinence History of Current Condition 3 months post with her 3rd baby who was11 lbs 13 oz, she reports no tearing or stitches. She has two older children including a 15 year old daughter and 2 year old son. She does void approx 15 times per day. She does have a history of UTI. She does feel pressure in her pelvis but has felt it for a long time. Nocturia x 2 times per night, this is new since having her baby. Treatment Goals Patient/Caregiver Goals pts goals include reducing urinary stress incontinence reducing urgency and frequency of voids Current Functional Impairments (Reported) Functional Limitations- ADL's limited with ADL's due to leakage as leakage increases with activity Functional Limitations- Mobility/Gait Limited in her ability to exercise due to pelvic pressure and stress incontinence PT-OP-C Subjective Start: 10/27/24 12:10 Freq: Status: Active Protocol: Document 11/10/24 11:28 [facility] (Rec: 11/10/24 11:45 [facility] [id number]) OP-PT Subjective Patient Comments Patient Comments she has been doing her bladder diary and she is going approx every hour. and 1-2 times per night PT-OP-I Pelvic Floor Start: 11/02/24 15:59 Freq: Status: Active Protocol: Document 11/02/24 15:15 [facility] (Rec: 11/02/24 16:03 [facility] [id number]) Pelvic Floor Assessment Urine Pelvic Floor Surgery No: 3 vaginal deliveries Urinary Symptoms Urge Sensation,Incomplete Emptying,Falling Out Feeling/ Heavy Leakage Size Medium Leakage Cause Cough,Exercise,Lifting,Sneeze, Urge Other Leakage Causes Christal notes leakage with getting up from the floor and if she chops wood Leaks Per Day 1-3 Voiding Frequency 15-19 times per day Nocturia 2 Urine Pad Type Panty Liner Pelvic Clock Pelvic Clock 12-3 Atrophy Pelvic Clock 3-6 Atrophy Pelvic Clock 6-9 Atrophy Pelvic Clock 9-12 Atrophy Prolapse Cystocele Grade 1 Contraction Ability Voluntary Contraction Weak Voluntary Relaxation Weak Manual Muscle Testing Left 1 Manual Muscle Testing Right 1 Manual Muscle Testing Anterior 0 Manual Muscle Testing Posterior 0 Muscle Endurance (Seconds) 3 Comments Pelvic Floor Comments pelvic floor weakness throughout the pelvic clock, I am not able to feel a contraction at the posterior or anterior wall, with adductor assist I am able to palpate a contraction on both right and left lateral simeon, poor endurance PT-OP-Q Treatments Start: 10/27/24 12:10 Freq: Status: Active Protocol: Document 11/10/24 11:28 [facility] (Rec: 11/10/24 11:45 [facility] [id number]) Therapeutic Exercises Supine Exercises hooklying clam shell with theraband Equipment Used level 3 TB Reps/Minutes 2 x 10 reps pevic floor resting tone Comments average of 6 uv adductor assist with pelvic floor squeeze Supine Exercise Name ball squeeze Reps/Minutes 10 sec on 10 sec off Comments 10.2 average and 17.8 max pelvic floor long holds Reps/Minutes 10 reps 5 sec holds Comments average 8.9 max 15.7 Self-Care/Home Management Treatment Education Other Education pt was educated in the urge deference technique PT-OP-T Assessment and Plan Start: 10/27/24 12:10 Freq: Status: Active Protocol: Document 11/10/24 11:30 [facility] (Rec: 11/10/24 12:22 [facility] [id number]) Physical Therapy Assessment Goals 3 Impairment Decreased endurance of the pelvic floor Short Term Goal (STG) Christal is able to sustain a pelvic floor contraction in supine x 10 seconds STG Duration 5 weeks Packaging Clerk Goal (LTG) Christal is able to sustain a pelvic floor contraction in standing x 5 seconds and when lifting her baby and or the car seat. LTG Duration 8 weeks 2 Impairment pelvic floor weakness with MMT of 1/5 for lateral simeon and unable to elicit a pelvic floor contraction for the anterior and posterior wall Short Term Goal (STG) Christal is able to facilitate a pelvic floor contraction of all simeon of the levator ani STG Duration 4 weeks Packaging Clerk Goal (LTG) Christal demonstrates improved strength of the levator ani with 2/5 MMT or better LTG Duration 8 weeks 1 Impairment post urinary stress incontinence Packaging Clerk Goal (LTG) Christal notes a overall reduction of urinary stress incontinence symptoms LTG Duration 8 weeks Assessment Summary Assessment Bladder diary was reviewed today and Christal is voiding approx every hour. She was educated on the urge deference technique and bladder retraining. I started pelvic floor endurance training and resting tone was elevated at first but did decrease as we worked on contract/relax. I added in hip adduction assist and hooklying clam shells. Christal would benefit next visit from quadruped TA isolation and cat cow for lumbar mobility Physical Therapy Plan Frequency and Duration Frequency of Treatment 1x/Week Duration of treatment (weeks) 8 Plan of Care Start Date 11/02/24 Plan of Care End Date 12/28/24 Therapeutic Interventions Therapeutic Interventions Home Exercise Program, Neuromuscular Re-education, Patient/Caregiver Education, Self-Care/Home Management, Therapeutic Exercises Modalities Biofeedback Next Visit Focus/Plan Next Note Type Treatment Note Next Visit Plan review how urge deference technique went, start in quadruped for cat cow and TA isolations, review exercises from today's visit.
--- NOTE | 2024-11-18 13:47 | PT.OTN ---
Current Diagnoses Stress incontinence (female) (male) (11/18/24) Pelvic muscle wasting (11/18/24) Frequency of micturition (11/18/24) Nocturia (11/18/24) Physical Therapy Treatment Note PT-OP-A Visit Information Start: 10/27/24 12:10 Freq: Status: Active Protocol: Document 11/18/24 13:01 [facility] (Rec: 11/18/24 13:46 [facility] [id number]) Out-Patient Physical Therapy Visit Information Visit Information Visit Type Treatment Note Visit Start Time 13:00 Visit Stop Time 13:45 Visit Number 3 PT-OP-B Current Condition Start: 10/27/24 12:10 Freq: Status: Active Protocol: Document 11/02/24 15:15 [facility] (Rec: 11/02/24 15:31 [facility] [id number]) Current Condition History of Current Condition Onset Date 3 months ago with vaginal delivery Current Complaints urinary stress incontinence History of Current Condition 3 months post with her 3rd baby who was11 lbs 13 oz, she reports no tearing or stitches. She has two older children including a 15 year old daughter and 2 year old son. She does void approx 15 times per day. She does have a history of UTI. She does feel pressure in her pelvis but has felt it for a long time. Nocturia x 2 times per night, this is new since having her baby. Treatment Goals Patient/Caregiver Goals pts goals include reducing urinary stress incontinencel reducing urgency and frequency of voids Current Functional Impairments (Reported) Functional Limitations- ADL's limited with ADL's due to leakage as leakage increases with activity Functional Limitations- Mobility/Gait Limited in her ability to exercise due to pelvic pressure and stress incontinence PT-OP-C Subjective Start: 10/27/24 12:10 Freq: Status: Active Protocol: Document 11/18/24 13:01 [facility] (Rec: 11/18/24 13:46 [facility] [id number]) OP-PT Subjective Patient Comments Patient Comments pt notes she has been sick and has been coughing a lot and has been leaking with coughing and she has to wear a pad. she did try the toileting technique of raising arms up and folding forward after voiding and this did help to empty more PT-OP-I Pelvic Floor Start: 11/02/24 15:59 Freq: Status: Active Protocol: Document 11/02/24 15:15 [facility] (Rec: 11/02/24 16:03 [facility] [id number]) Pelvic Floor Assessment Urine Pelvic Floor Surgery No: 3 vaginal deliveries Urinary Symptoms Urge Sensation,Incomplete Emptying,Falling Out Feeling/ Heavy Leakage Size Medium Leakage Cause Cough,Exercise,Lifting,Sneeze, Urge Other Leakage Causes Christal notes leakage with getting up from the floor and if she chops wood Leaks Per Day 1-3 Voiding Frequency 15-19 times per day Nocturia 2 Urine Pad Type Panty Liner Pelvic Clock Pelvic Clock 12-3 Atrophy Pelvic Clock 3-6 Atrophy Pelvic Clock 6-9 Atrophy Pelvic Clock 9-12 Atrophy Prolapse Cystocele Grade 1 Contraction Ability Voluntary Contraction Weak Voluntary Relaxation Weak Manual Muscle Testing Left 1 Manual Muscle Testing Right 1 Manual Muscle Testing Anterior 0 Manual Muscle Testing Posterior 0 Muscle Endurance (Seconds) 3 Comments Pelvic Floor Comments pelvic floor weakness throughout the pelvic clock, I am not able to feel a contraction at the posterior or anterior wall, with adductor assist I am able to palpate a contraction on both right and left lateral simeon, poor endurance PT-OP-Q Treatments Start: 10/27/24 12:10 Freq: Status: Active Protocol: Document 11/18/24 13:01 [facility] (Rec: 11/18/24 13:46 [facility] [id number]) Therapeutic Exercises Supine Exercises quick pelvic floor contractions Reps/Minutes 10 reps 2 sec on 2 sec off hooklying clam shell with theraband Equipment Used level 3 TB Reps/Minutes 2 x 10 reps pevic floor resting tone Comments average 3-4 uv adductor assist with pelvic floor squeeze Reps/Minutes 10 sec on 10 sec off Comments 11.5 and max of 17.1 pelvic floor long holds Reps/Minutes 10 sec on 10 sec off Comments 12.8 average and max of 19.6 Other Exercises cat cow Reps/Minutes x 10 reps quadruped TA Reps/Minutes 5 reps holding 5 seconds PT-OP-T Assessment and Plan Start: 10/27/24 12:10 Freq: Status: Active Protocol: Document 11/18/24 13:01 [facility] (Rec: 11/18/24 13:46 [facility] [id number]) Physical Therapy Plan Next Visit Focus/Plan Next Note Type Treatment Note Next Visit Plan review cat cow and TA isolations, if pt is wanting NMES we will try this next visit, continue with pelvic floor endurance holds
--- NOTE | 2024-11-25 15:18 | PT.OTN ---
Current Diagnoses Stress incontinence (female) (male) (11/25/24) Pelvic muscle wasting (11/25/24) Frequency of micturition (11/25/24) Nocturia (11/25/24) Physical Therapy Treatment Note PT-OP-A Visit Information Start: 10/27/24 12:10 Freq: Status: Active Protocol: Document 11/25/24 14:29 [facility] (Rec: 11/25/24 15:14 [facility] [id number]) Out-Patient Physical Therapy Visit Information Visit Information Visit Type Treatment Note Visit Start Time 14:30 Visit Stop Time 15:15 Visit Number 4 PT-OP-B Current Condition Start: 10/27/24 12:10 Freq: Status: Active Protocol: Document 11/02/24 15:15 [facility] (Rec: 11/02/24 15:31 [facility] [id number]) Current Condition History of Current Condition Onset Date 3 months ago with vaginal delivery Current Complaints urinary stress incontinence History of Current Condition 3 months post with her 3rd baby who was11 lbs 13 oz, she reports no tearing or stitches. She has two older children including a 15 year old daughter and 2 year old son. She does void approx 15 times per day. She does have a history of UTI. She does feel pressure in her pelvis but has felt it for a long time. Nocturia x 2 times per night, this is new since having her baby. Treatment Goals Patient/Caregiver Goals pts goals include reducing urinary stress incontinencel reducing urgency and frequency of voids Current Functional Impairments (Reported) Functional Limitations- ADL's limited with ADL's due to leakage as leakage increases with activity Functional Limitations- Mobility/Gait Limited in her ability to exercise due to pelvic pressure and stress incontinence PT-OP-C Subjective Start: 10/27/24 12:10 Freq: Status: Active Protocol: Document 11/25/24 14:29 [facility] (Rec: 11/25/24 15:14 [facility] [id number]) OP-PT Subjective Patient Comments Patient Comments Christal feels like exercises are helping but she still has the cough putting pressure on her bladder Patient Reported Progress Improving PT-OP-I Pelvic Floor Start: 11/02/24 15:59 Freq: Status: Active Protocol: Document 11/02/24 15:15 [facility] (Rec: 11/02/24 16:03 [facility] [id number]) Pelvic Floor Assessment Urine Pelvic Floor Surgery No: 3 vaginal deliveries Urinary Symptoms Urge Sensation,Incomplete Emptying,Falling Out Feeling/ Heavy Leakage Size Medium Leakage Cause Cough,Exercise,Lifting,Sneeze, Urge Other Leakage Causes Christal notes leakage with getting up from the floor and if she chops wood Leaks Per Day 1-3 Voiding Frequency 15-19 times per day Nocturia 2 Urine Pad Type Panty Liner Pelvic Clock Pelvic Clock 12-3 Atrophy Pelvic Clock 3-6 Atrophy Pelvic Clock 6-9 Atrophy Pelvic Clock 9-12 Atrophy Prolapse Cystocele Grade 1 Contraction Ability Voluntary Contraction Weak Voluntary Relaxation Weak Manual Muscle Testing Left 1 Manual Muscle Testing Right 1 Manual Muscle Testing Anterior 0 Manual Muscle Testing Posterior 0 Muscle Endurance (Seconds) 3 Comments Pelvic Floor Comments pelvic floor weakness throughout the pelvic clock, I am not able to feel a contraction at the posterior or anterior wall, with adductor assist I am able to palpate a contraction on both right and left lateral simeon, poor endurance PT-OP-Q Treatments Start: 10/27/24 12:10 Freq: Status: Active Protocol: Document 11/25/24 14:29 [facility] (Rec: 11/25/24 15:14 [facility] [id number]) Therapeutic Exercises Supine Exercises TA with march Reps/Minutes 10 reps each side quick pelvic floor contractions Reps/Minutes 10 reps 2 sec on 2 sec off hooklying clam shell with theraband Equipment Used level 3 TB Reps/Minutes 2 x 10 reps pevic floor resting tone Comments started at 5 and dropped to 2. 6 uv adductor assist with pelvic floor squeeze Reps/Minutes 10 sec on 10 sec off pelvic floor long holds Reps/Minutes 5 sec on 10 sec rest Comments 5.7 and max of 16 uv Other Exercises QUadruped TA with opp arm lift Reps/Minutes x 10 reps PT-OP-T Assessment and Plan Start: 10/27/24 12:10 Freq: Status: Active Protocol: Document 11/25/24 14:29 [facility] (Rec: 11/25/24 15:14 [facility] [id number]) Physical Therapy Assessment Assessment Summary Assessment Christal did better today with TA stabilization in quadruped and with cat cow exercises, I added in quadruped TA with opp arm lifts and supine marches and she tolerated these well. SHe still has elevated tone on the pelvic floor, will add in additional stretches next visit for her hips Physical Therapy Plan Frequency and Duration Frequency of Treatment 1x/Week Duration of treatment (weeks) 8 Plan of Care Start Date 11/02/24 Plan of Care End Date 12/28/24 Therapeutic Interventions Therapeutic Interventions Home Exercise Program,Patient/ Caregiver Education,Self-Care/ Home Management,Therapeutic Exercises Modalities Biofeedback Next Visit Focus/Plan Next Note Type Treatment Note Next Visit Plan add in piriformis and modified squat stretch for Christal, review all exercises
--- NOTE | 2024-12-02 16:34 | PT.OTN ---
Current Diagnoses Stress incontinence (female) (male) (12/02/24) Pelvic muscle wasting (12/02/24) Frequency of micturition (12/02/24) Nocturia (12/02/24) Physical Therapy Treatment Note PT-OP-A Visit Information Start: 10/27/24 12:10 Freq: Status: Active Protocol: Document 12/02/24 14:33 [facility] (Rec: 12/02/24 15:14 [facility] [id number]) Out-Patient Physical Therapy Visit Information Visit Information Visit Type Treatment Note Visit Start Time 14:30 Visit Stop Time 15:15 Visit Number 5 PT-OP-B Current Condition Start: 10/27/24 12:10 Freq: Status: Active Protocol: Document 11/02/24 15:15 [facility] (Rec: 11/02/24 15:31 [facility] [id number]) Current Condition History of Current Condition Onset Date 3 months ago with vaginal delivery Current Complaints urinary stress incontinence History of Current Condition 3 months post with her 3rd baby who was11 lbs 13 oz, she reports no tearing or stitches. She has two older children including a 15 year old daughter and 2 year old son. She does void approx 15 times per day. She does have a history of UTI. She does feel pressure in her pelvis but has felt it for a long time. Nocturia x 2 times per night, this is new since having her baby. Treatment Goals Patient/Caregiver Goals pts goals include reducing urinary stress incontinencel reducing urgency and frequency of voids Current Functional Impairments (Reported) Functional Limitations- ADL's limited with ADL's due to leakage as leakage increases with activity Functional Limitations- Mobility/Gait Limited in her ability to exercise due to pelvic pressure and stress incontinence PT-OP-C Subjective Start: 10/27/24 12:10 Freq: Status: Active Protocol: Document 12/02/24 14:33 [facility] (Rec: 12/02/24 15:14 [facility] [id number]) OP-PT Subjective Patient Comments Patient Comments pt notes that symptoms are getting a little better, coughing is decreasing too. Christal feels she is independent with her HEP and is ready to DC PT Patient Reported Progress Improving PT-OP-I Pelvic Floor Start: 11/02/24 15:59 Freq: Status: Active Protocol: Document 11/02/24 15:15 [facility] (Rec: 11/02/24 16:03 [facility] [id number]) Pelvic Floor Assessment Urine Pelvic Floor Surgery No: 3 vaginal deliveries Urinary Symptoms Urge Sensation,Incomplete Emptying,Falling Out Feeling/ Heavy Leakage Size Medium Leakage Cause Cough,Exercise,Lifting,Sneeze, Urge Other Leakage Causes Christal notes leakage with getting up from the floor and if she chops wood Leaks Per Day 1-3 Voiding Frequency 15-19 times per day Nocturia 2 Urine Pad Type Panty Liner Pelvic Clock Pelvic Clock 12-3 Atrophy Pelvic Clock 3-6 Atrophy Pelvic Clock 6-9 Atrophy Pelvic Clock 9-12 Atrophy Prolapse Cystocele Grade 1 Contraction Ability Voluntary Contraction Weak Voluntary Relaxation Weak Manual Muscle Testing Left 1 Manual Muscle Testing Right 1 Manual Muscle Testing Anterior 0 Manual Muscle Testing Posterior 0 Muscle Endurance (Seconds) 3 Comments Pelvic Floor Comments pelvic floor weakness throughout the pelvic clock, I am not able to feel a contraction at the posterior or anterior wall, with adductor assist I am able to palpate a contraction on both right and left lateral simeon, poor endurance PT-OP-Q Treatments Start: 10/27/24 12:10 Freq: Status: Active Protocol: Document 12/02/24 14:33 [facility] (Rec: 12/02/24 15:14 [facility] [id number]) Therapeutic Exercises Supine Exercises piriformis stretch Reps/Minutes hold 1-2 min modified squat stretch Reps/Minutes hold 1-2 min TA with march Reps/Minutes 10 reps each side pevic floor resting tone Comments went to a 1.2 following 10 reps of 10 sec holds adductor assist with pelvic floor squeeze Reps/Minutes 10 sec on 10 sec off pelvic floor long holds Reps/Minutes 10 sec hold and 10 sec relaxation Comments 5.5 average 12.1 max Neuro Re-Education Treatment Other Activities NMES for the pelvic floor Details NMES for the pelvic floor Comments vaginal sensor used for NEMS of the pelvic floor went to level 6, pt could feel more on the left side, she was able to feel the front PT-OP-T Assessment and Plan Start: 10/27/24 12:10 Freq: Status: Active Protocol: Document 12/02/24 14:33 [facility] (Rec: 12/02/24 15:14 [facility] [id number]) Physical Therapy Assessment Goals 3 Impairment Decreased endurance of the pelvic floor Short Term Goal (STG) Christal is able to sustain a pelvic floor contraction in supine x 10 seconds goal met STG Duration 5 weeks Property Man Goal (LTG) Christal is able to sustain a pelvic floor contraction in standing x 5 seconds and when lifting her baby and or the car seat. LTG Duration 8 weeks 2 Impairment pelvic floor weakness with MMT of 1/5 for lateral simeon and unable to elicit a pelvic floor contraction for the anterior and posterior wall Short Term Goal (STG) Chrsital is able to facilitate a pelvic floor contraction of all simeon of the levator ani goal met STG Duration 4 weeks Property Man Goal (LTG) Christal demonstrates improved strength of the levator ani with 2/5 MMT or better LTG Duration 8 weeks 1 Impairment post urinary stress incontinence [facility] Goal (LTG) Christal notes a overall reduction of urinary stress incontinence symptoms good progress LTG Duration 8 weeks Assessment Summary Assessment Overall Christal is showing improved pelvic floor recruitment and endurance. She is slowing noting a decrease in urinary incontinence. She feels independent with her home program and reports she is ready to DC. I do feel she would benefit from continuing her home program as she is still showing improvements with her strength and she is not yet fully symptoms free. Physical Therapy Plan Discharge Physical Therapy Discharge Reasons Patient Request
== END 2024-12-06 10:06 | disposition home or self-care (01) ==
LOC: PHYS 14:30
PROVIDERS: Family Provider Registered Nurse Diabetes Educator; PCP Registered Nurse Diabetes Educator; Referring Provider Registered Nurse Diabetes Educator; Visit Provider Registered Nurse Diabetes Educator
DX: N39.3 Stress incontinence (female) (male) (principal); N81.84 Pelvic muscle wasting; R35.1 Nocturia; R35.0 Frequency of micturition
CPT/HCPCS: 97110; 97112; 97162; 97535

== ENCOUNTER → 2025-01-25 12:00 | Outpatient (CLI) | payer OTHER, SELFPAY ==
[2024-05-03 02:08] VITALS: BMI 35.2
[2025-01-25 13:02] LABS: Alanine Aminotransferase 66 IU/L (<35); Aspartate Aminotransferase 37 IU/L (14-36); Cholesterol 165 mg/dL (140-199); HDL Cholesterol 41 mg/dL (40-60); LDL Cholesterol Calculated 94 mg/dL (<100); Triglycerides 151 mg/dL (35-150)
== END ==
PROVIDERS: Family Provider Registered Nurse Diabetes Educator; PCP Registered Nurse Diabetes Educator; Referring Provider Student in an Organized Health Care Education/Training Program; Visit Provider Student in an Organized Health Care Education/Training Program
DX: Z51.81 Encounter for therapeutic drug level monitoring (principal); Z79.899 Other long term (current) drug therapy
CPT/HCPCS: 36415; 80061; 84450; 84460

== ENCOUNTER → 2025-08-02 08:40 | Outpatient (CLI) | payer SELFPAY ==
[2024-05-03 02:08] VITALS: BMI 35.2
[2025-08-02 09:24] LABS: Hematocrit 38.0 % (36-46); Hemoglobin 13.5 g/dL (12.0-16.0); Mean Corpuscular HGB Conc 35.5 % (30-36); Mean Corpuscular Hemoglobin 30.4 PG (26-34); Mean Corpuscular Volume 85.7 fL (80-100); Platelet Count 352 X10^3/uL (150-400)
[2025-08-02 09:36] LABS: Hemoglobin A1C% w Est Avg Glu 5.9 % (4.0-6.0)
[2025-08-02 09:47] LABS: HEMOLYSIS < 15 (0-50); Iron 31 ug/dL (37-170)
[2025-08-02 09:58] LABS: Percent Iron Saturation 9 % (15-50); Total Iron Binding Capacity 359 ug/dL (265-497); Transferrin 298 mg/dL (206-381)
[2025-08-02 10:05] LABS: Free T4, Direct Thyroxine 1.04 ng/dL (0.78-2.19)
[2025-08-02 10:19] LABS: Thyroid Stimulating Hormone 1.90 uIU/mL (0.47-4.68)
[2025-08-02 10:22] LABS: Ferritin 58 ng/mL (6-137)
== END ==
PROVIDERS: Family Provider Registered Nurse Diabetes Educator; PCP Registered Nurse Diabetes Educator; Referring Provider Student in an Organized Health Care Education/Training Program; Visit Provider Student in an Organized Health Care Education/Training Program
DX: Z79.899 Other long term (current) drug therapy (principal); R63.5 Abnormal weight gain; R53.83 Other fatigue; D50.9 Iron deficiency anemia, unspecified
CPT/HCPCS: 36415; 82728; 83036; 83540; 83550; 84439; 84443; 85027